=== PATIENT | female | born 1960 | race Caucasian/White ===

== ENCOUNTER 2020-03-27 10:28 | Outpatient (REF) | payer OTHER, SELFPAY ==
--- NOTE | 2020-03-27 10:40 | MM_ITS ---
EXAMINATION: BONE DENSITOMETRY CLINICAL INDICATION: Osteoporosis. COMPARISON: Baseline BD dated 06/30/2016. TECHNIQUE: Using a [employer] DXA System (software version: 13.1) manufactured by [employer], dual-energy x-ray absorptiometry was performed of the lumbar spine and left hip. The images are of good technical quality. Summary results are attached. FINDINGS: AP SPINE L1-L4: Current: BMD 1.842 g/cm2, Z-score 6.2, T-score 5.5, normal, 7.7% increase from baseline (<5% change is not significant). Baseline: BMD 1.710 g/cm2. LEFT FEMUR, NECK: Current: BMD 1.021 g/cm2, Z-score 0.8, T-score -0.1, normal. Baseline: BMD 1.068 g/cm2. LEFT FEMUR, TOTAL: Current: BMD 1.168 g/cm2, Z-score 1.8, T-score 1.3, normal, 4.2% increase from baseline (<5% change is not significant). Baseline: BMD 1.121 g/cm2. IDENTIFIED RISK FACTORS: Menopause, ERT/SERMS. HISTORY OF FRACTURE: None listed. MEDICATIONS: None listed. MM/XR DEXA axial skeleton IMPRESSION: 1. DIAGNOSIS: Normal bone density based on the lowest T-score value of -0.1 in the femoral neck applying World Health Organization criteria. 2. 10-YEAR FRACTURE RISK PREDICTION, FRAX: Major osteoporotic fracture (clinical spine, forearm, hip or shoulder) 6.1%. Hip fracture 0.2%. 3. Treatment Recommendations: NOF guidelines recommend consideration for treatment in postmenopausal women and men age 50 and older presenting with the following: -A hip or vertebral (clinical or morphometric) fracture. -T-score less than or equal to -2.5 at the femoral neck or spine after appropriate evaluation to exclude secondary causes. -Low bone mass at the hip or spine and a 10-year fracture probability by FRAX of greater than or equal to 3% for hip fracture or greater than or equal to 20% for major osteoporotic fracture based on the [place] adapted WHO algorithm. 4. Other Recommendations: All treatment decisions require clinical judgment and consideration of individual patient factors, including patient preferences, comorbidities, previous drug use, risk factors not captured in the FRAX model (e.g. frailty, falls, vitamin D deficiency, increased bone turnover, interval significant decline in bone density) and possible under or overestimation of fracture risk by FRAX. FUTURE SCAN RECOMMENDATION: People with diagnosed cases of osteoporosis or at high risk for fracture should have regular bone mineral density tests. For patients eligible for Medicare, routine testing is allowed once every 2 years. The testing frequency can be increased to one year for patients who have rapidly progressing disease, those who are receiving or discontinuing medical therapy to restore bone mass, or have additional risk factors.
--- NOTE | 2020-03-27 10:40 | MM_ITS ---
EXAMINATION: MM SCREENING DIGITAL BREAST TOMOSYNTHESIS, LEFT CLINICAL INFORMATION: Prior history right mastectomy for breast cancer 2009. Due for yearly. COMPARISON: Mammography: 09/12/2018, 08/11/2017, 07/11/2016, 06/05/2015, 04/21/2014, 03/28/2013 TECHNIQUE: Digital breast tomosynthesis is performed in both the craniocaudal and mediolateral oblique views along with computer-aided detection (CAD). Synthesized 2D images are generated from the tomosynthesis. Additional exaggerated left CC view is provided. FINDINGS: There are scattered areas of fibroglandular density (ACR BI-RADS breast composition Category b). There are no significant masses, abnormal calcifications, or other abnormalities. There is small intramammary node suggested on CC view outer quadrant similar to prior studies. Axillary nodes are stable. There are scattered benign calcifications. The skin contours are smooth. MM/MM tomosynthesis screening LT IMPRESSION: No significant changes from prior studies. ASSESSMENT: BI-RADS 2: Benign RECOMMENDATION: Routine annual mammography screening. This patient's information was entered into a reminder system with a target due date for their next mammogram.
== END 2020-03-27 10:29 | disposition home or self-care (01) ==
LOC: HO.MAMMO 10:28
PROVIDERS: PCP Internal Medicine; Visit Provider Internal Medicine Medical Oncology
DX: C50.411 Malignant neoplasm of upper-outer quadrant of right female breast (principal); Z13.820 Encounter for screening for osteoporosis; Z78.0 Asymptomatic menopausal state; Z79.810 Long term (current) use of selective estrogen receptor modulators (SERMs)
CPT/HCPCS: 77067; 77080

== ENCOUNTER → 2021-02-26 09:00 | Outpatient (BNVA) | payer OTHER, SELFPAY | PROVIDERS: PCP Internal Medicine; Visit Provider Surgery ==

== ENCOUNTER 2021-02-26 11:23 | Outpatient (REF) | payer OTHER, SELFPAY ==
[2021-02-26 14:03] LABS: Alanine Aminotransferase 17 U/L (0-31); Albumin Level 4.4 g/dL (3.5-5.0); Alkaline Phosphatase 118 U/L (39-117); Anion Gap 12 (12-20); Aspartate Amino Transferase 23 U/L (5-31); Bilirubin Total 0.5 mg/dL (0.0-1.0); Blood Urea Nitrogen 12 mg/dL (9-16); Calcium 9.5 mg/dL (8.4-10.2); Carbon Dioxide 30 mmol/L (22-29); Chloride 105 mmol/L (96-108); Estimated Glomerular Filt Rate > 60; Glucose Random 87 mg/dL (60-115); Potassium 4.3 mmol/L (3.3-5.1); Sodium 143 mmol/L (135-145); Total Protein 7.4 g/dL (6.5-8.0)
== END 2021-02-26 11:24 | disposition home or self-care (01) ==
LOC: HO.10HDL 11:23
PROVIDERS: Visit Provider Nurse Practitioner Family
DX: Z01.818 Encounter for other preprocedural examination (principal); Z76.0 Encounter for issue of repeat prescription; Z85.3 Personal history of malignant neoplasm of breast; Z88.6 Allergy status to analgesic agent; Z91.048 Other nonmedicinal substance allergy status
CPT/HCPCS: 36415; 80053

== ENCOUNTER 2021-04-26 07:23 | Outpatient (REF) | payer OTHER, SELFPAY ==
--- NOTE | ~2021-04-26 | MM_ITS ---
EXAMINATION: MM SCREENING DIGITAL BREAST TOMOSYNTHESIS, LEFT CLINICAL INFORMATION: Right mastectomy for breast cancer, 2009. Due for yearly exam. COMPARISON: Mammography: 03/27/2020, 09/12/2018, 08/11/2017 TECHNIQUE: Digital breast tomosynthesis is performed in both the craniocaudal and mediolateral oblique views along with computer-aided detection (CAD). Synthesized 2D images are generated from the tomosynthesis. FINDINGS: There are scattered areas of fibroglandular density (ACR BI-RADS breast composition Category b). Breast tissue composition borders on heterogeneously dense with shifting fibroglandular densities from year to year. There is no significant change in parenchymal pattern. No significant mass or architectural abnormality or developing density. No abnormal calcifications. MM/MM tomosynthesis screening LT IMPRESSION: No significant changes from prior studies. ASSESSMENT: BI-RADS 2: Benign RECOMMENDATION: Routine annual mammography screening. This patient's information was entered into a reminder system with a target due date for their next mammogram.
== END 2021-04-26 07:24 | disposition home or self-care (01) ==
LOC: HO.MAMMO 07:23
PROVIDERS: Visit Provider Internal Medicine Medical Oncology
DX: Z12.31 Encounter for screening mammogram for malignant neoplasm of breast (principal)
CPT/HCPCS: 77063; 77067

== ENCOUNTER 2022-05-02 08:33 | Outpatient (REF) | payer OTHER, SELFPAY ==
--- NOTE | ~2022-05-02 | MM_ITS ---
EXAMINATION: MM SCREENING DIGITAL BREAST TOMOSYNTHESIS, LEFT CLINICAL INFORMATION: Screening. Asymptomatic. The lifetime risk of breast cancer based on the Tyrer-Cuzick Model is 6%. COMPARISON: Mammography: 04/26/2021, 03/27/2020, 09/12/2018 TECHNIQUE: Digital breast tomosynthesis is performed in both the craniocaudal and mediolateral oblique views along with computer-aided detection (CAD). Synthesized 2D images are generated from the tomosynthesis. Additional left MLO view is provided. FINDINGS: There are scattered areas of fibroglandular density (ACR BI-RADS breast composition Category b). There are no significant masses, abnormal calcifications, or other abnormalities. Parenchymal pattern is similar to prior studies. There is no developing density or architectural abnormality. The axilla and skin contours are unremarkable. No significant changes. MM/MM tomosynthesis screening LT IMPRESSION: No mammographic evidence of malignancy. ASSESSMENT: BI-RADS 1: Negative RECOMMENDATION: Routine annual mammography screening. This patient's information was entered into a reminder system with a target due date for their next mammogram.
== END 2022-05-02 08:34 | disposition home or self-care (01) ==
LOC: HO.MAMMO 08:33
PROVIDERS: Visit Provider Internal Medicine Medical Oncology
DX: Z12.31 Encounter for screening mammogram for malignant neoplasm of breast (principal)
CPT/HCPCS: 77063; 77067

== ENCOUNTER → 2022-05-24 09:21 | Outpatient (BNVA) | payer OTHER, SELFPAY | PROVIDERS: PCP Internal Medicine; Visit Provider Surgery | DX: Z13.89 Encounter for screening for other disorder (principal) ==

== ENCOUNTER 2023-01-30 11:11 | Outpatient (AMB) | payer OTHER, SELFPAY ==
--- NOTE | 2023-01-30 11:16 | A.OFFVIS_ITS ---
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 H/o right modified radical mastectomy on 03/23, 4 cycles of dose dense AC followed by 4 cycles of Taxotere and chest wall radiation. Last time she was seen in my office 1 year ago for the treatment of neuropathic pain she was prescribed gabapentin and amitriptyline. She continues to take those medications she admits significant help from those medications. She denies side effects. She requests me to refill the meds. [facility] Medical History Invasive lobular carcinoma of breast, stage 3 Surgical History History of 2 sections History of appendectomy History of mastectomy History of right breast biopsy Social History Alcohol intake: current Alcohol intake frequency: holidays/special occasions only Patient Tobacco Use Status: Never used Tobacco Female Reproductive History Menstrual Age of Menarche: 13 Review of Systems Const All systems reviewed & are unremarkable except as noted in HPI and below ENT Denies Normal hearing present Neuro Denies Normal hearing present, Denies Abnormal speech present and Denies confusion Psych Denies confusion Physical Exam Const General: cooperative, healthy appearing and no acute distress; No confusion Nutritional Appearance: overweight Orientation/consciousness: patient oriented x3 and No confusion Limitations: no limitations HEENT Head: Yes normocephalic and Yes atraumatic Ears: hearing grossly normal bilaterally Eyes General: appearance normal, both eyes and all related structures Eyelids: Yes eyelids normal Pupils: Equal, round and reactive pupils present EOM: EOMs intact bilaterally Neck Neck: Yes normal visual inspection and Yes no JVD Resp Effort & Inspection: normal respiratory effort, able to speak in complete sentences and no audible wheezes Cardio Jugular venous distension: no JVD Neuro General: patient oriented x3 and No confusion Cranial nerves: Yes Equal, round and reactive pupils present and No Normal hearing present Speech: No Abnormal speech present Psych Appearance: grossly normal Mental Status: mental status grossly normal Speech and movement: Normal speech and movement present Affect: normal affect Attitude: cooperative Thought process: Normal thought process present Thought content: Normal thought content present Insight: Good insight present (Psych) Judgement: Good judgement present (Psych) Assessment & Plan Assessment & Plan (1) Neuralgia: Code(s): M79.2 - Neuralgia and neuritis, unspecified Plan Batsheva returns today for a refill on her amitriptyline and gabapentin. Currently she is on gabapentin 600 mg t.i.d. and amitriptyline 50 mg 2 pills a night q.h.s.. I will see her in in 1 we are or sooner if needed. Medications: Refilled amitriptyline Start with 1 tab and not effective after two weeks may increase to two tabs QHS 25 mg PO BEDTIME 60 tabs 11RF 30 days gabapentin 600 mg PO TID 90 tabs 11RF 30 days Coding Level of Care Code Est Pt Level 3 (31333) Diagnoses Neuralgia M79.2
[2023-01-30 11:25] VITALS: BP 128/88; PULSE 85; RESP 17; O2SAT 95
== END 2023-01-30 11:32 | disposition home or self-care (01) ==
PROVIDERS: PCP Internal Medicine; Visit Provider Anesthesiology
DX: M79.2 Neuralgia and neuritis, unspecified (principal)
CPT/HCPCS: 99213

== ENCOUNTER → 2023-01-30 11:11 | Outpatient (BNVA) | payer OTHER, SELFPAY | PROVIDERS: PCP Internal Medicine; Visit Provider Anesthesiology ==

== ENCOUNTER 2023-08-03 15:36 | Outpatient (REF) | payer OTHER, SELFPAY ==
--- NOTE | ~2023-08-03 | MM_ITS ---
EXAMINATION: MM SCREENING DIGITAL BREAST TOMOSYNTHESIS, LEFT CLINICAL INFORMATION: Screening. Asymptomatic. The patient is status post right mastectomy. COMPARISON: Mammography: This study is compared with prior exams dating back to 2019. TECHNIQUE: Digital breast tomosynthesis is performed in both the craniocaudal and mediolateral oblique views along with computer-aided detection (CAD). Synthesized 2D images are generated from the tomosynthesis. FINDINGS: There are scattered areas of fibroglandular density (ACR BI-RADS breast composition Category b). There are no significant masses, abnormal calcifications, or other abnormalities. MM/MM tomosynthesis screening LT IMPRESSION: No mammographic evidence of malignancy. ASSESSMENT: BI-RADS BI-RADS 1 - Negative RECOMMENDATION: Routine annual mammography screening. 1 year F/U This examination should not preclude the clinical evaluation of a suspicious palpable abnormality. This patient's information was entered into a reminder system with a target due date for their next mammogram.
== END 2023-08-03 15:37 | disposition home or self-care (01) ==
LOC: HO.MAMMO 15:36
PROVIDERS: PCP Internal Medicine Medical Oncology; Visit Provider Internal Medicine Medical Oncology
DX: Z12.31 Encounter for screening mammogram for malignant neoplasm of breast (principal)
CPT/HCPCS: 77063; 77067

== ENCOUNTER → 2023-08-03 16:00 | Outpatient (BNV) | payer OTHER, SELFPAY | PROVIDERS: PCP Internal Medicine Medical Oncology; Visit Provider Radiology Diagnostic Radiology | DX: Z12.31 Encounter for screening mammogram for malignant neoplasm of breast (principal) | CPT/HCPCS: 77063; 77067 ==

== ENCOUNTER 2023-11-06 08:01 | Outpatient (AMB) | payer OTHER, SELFPAY ==
[2023-11-06 08:02] VITALS: BP 122/80; PULSE 87; TEMP 36.8; O2SAT 97
--- NOTE | 2023-11-06 08:02 | AM.OFFWIN_ITS ---
Intake Vital Signs 11/06/23 08:02 Height 5 ft 4 in Weight 175 lb BMI 30.0 BP 122/80 Blood Pressure Location Rt brachial Position Sitting Pulse 87 Pulse Source Pulse Oximeter Temp 98.3 F Temp Source Oral Pulse Oximetry (%) 97 Intake Visit Reasons: EP Sharp pain LT arm/neck Intake Note: pt is here for sharp arm pain left side from neck down arm Patient Tobacco Use Status: Never used Tobacco Allergies adhesive Allergy (Unknown, Uncoded 11/06/23 08:03) rash percocet Allergy (Unknown, Uncoded 11/06/23 08:03) nausea/vomiting Do you need a note to return to daycare/school/sports/work: No HPI HPI Comments History of Present Illness Details 63 y/o female patient who presents to [facility] in clinic with c/o Neck pain radiating down to the left arm. Reports the pain located on the back of the neck - pain radiating from midline neck all the way down to left arm and fingers. Reports feeling tingling and numbness to the upper arm and hand. Pain started Monday, she went to throw a Trash Bag and believes she might have pulled a muscle. [facility] Medical History Invasive lobular carcinoma of breast, stage 3 Surgical History History of 2 sections History of appendectomy History of mastectomy History of right breast biopsy Social History Alcohol intake: current Alcohol intake frequency: holidays/special occasions only Patient Tobacco Use Status: Never used Tobacco Female Reproductive History Menstrual Age of Menarche: 13 Review of Systems Const All systems reviewed & are unremarkable except as noted in HPI and below Physical Exam Vital Signs: Last Vital Signs Temp 98.3 F 11/06/23 08:02 Pulse 87 11/06/23 08:02 BP 122/80 11/06/23 08:02 Pulse Ox 97 11/06/23 08:02 BMI result Body Mass Index 30.0 Const General: comfortable and no acute distress Nutritional Appearance: overweight Orientation/consciousness: patient oriented x3 Neck Neck: Yes normal visual inspection, Yes full ROM, Yes supple and Yes tender (Tenderness midline neck at Trapezius muscle) Lymphatic: no lymphadenopathy noted Skin General skin exam: no rashes or lesions noted Rashes: no rashes Neuro General: patient oriented x3, gait normal and moves all extremities Psych Speech and movement: Normal speech and movement present Assessment & Plan Assessment & Plan (1) Neck pain on left side: Code(s): M54.2 - Cervicalgia Plan: Acetaminophen for pain relief Ice/Hot Medications: New naproxen 500 mg PO BID 20 tabs 0RF M54.2 - Cervicalgia lidocaine 5% leave on most painful area for up to 12 hrs 1 patch topical DAILY 15 ea 0RF M54.2 - Cervicalgia lidocaine 5% leave on most painful area for up to 12 hrs 1 patch topical DAILY 15 ea 0RF M54.2 - Cervicalgia naproxen 500 mg PO BID 20 tabs 0RF M54.2 - Cervicalgia cyclobenzaprine 10 mg PO BEDTIME 14 tabs 0RF M54.2 - Cervicalgia cyclobenzaprine 10 mg PO BEDTIME 14 tabs 0RF M54.2 - Cervicalgia Coding Level of Care Code Est Pt Level 3 (80391) Diagnoses Neck pain on left side M54.2 Time Spent (min) 15
== END 2023-11-06 09:10 | disposition home or self-care (01) ==
PROVIDERS: PCP Internal Medicine Medical Oncology; Visit Provider Nurse Practitioner Family
DX: M54.2 Cervicalgia (principal)
CPT/HCPCS: 99213

== ENCOUNTER 2023-12-06 09:24 | Outpatient (AMB) | payer OTHER, SELFPAY ==
[2023-12-06 10:03] VITALS: BP 140/88; PULSE 95; TEMP 36.1; O2SAT 99; BMI 29.3
--- NOTE | 2023-12-06 10:03 | AM.OFFWIN_ITS ---
Intake Vital Signs 12/06/23 10:03 Height 5 ft 4 in Weight 171 lb BMI 29.3 BP 140/88 H Blood Pressure Location Lt brachial Position Sitting Pulse 95 Pulse Source Pulse Oximeter Temp 97.0 F Temp Source Temporal Artery Scan Pulse Oximetry (%) 99 Oxygen Delivery Method Room Air Intake Visit Reasons: EP Pinched nerve/not better Intake Note: Batsheva is a 63 year old female who presents to the office today for a pinched nerve in her left arm all the way up her shoulder. Pt states she was given pain m edications which helped a little but now states the pain is back. Patient Tobacco Use Status: Never used Tobacco Allergies adhesive Allergy (Unknown, Uncoded 12/06/23 10:04) rash percocet Allergy (Unknown, Uncoded 12/06/23 10:04) nausea/vomiting HPI HPI Comments History of Present Illness Details 63 y/o female patient who presents to [facility] in clinic with c/o left sided upper arm Nerve pain associated with tingling of fingers. She was seen by me back in October for similar problem. Reports good relief with Flexeril. She is currently being managed by pain clinic for Neuralgia right upper arm. She takes Gabapentin 600 TID and Amitriptiline 25 mg at Bedtime. She does report no much relief on the current medications. She has an up coming Appointment with Pain clinic in February. [facility] Medical History Invasive lobular carcinoma of breast, stage 3 Surgical History History of 2 sections History of appendectomy History of mastectomy History of right breast biopsy Social History Alcohol intake: current Alcohol intake frequency: holidays/special occasions only Patient Tobacco Use Status: Never used Tobacco Female Reproductive History Menstrual Age of Menarche: 13 Review of Systems Const All systems reviewed & are unremarkable except as noted in HPI and below Physical Exam Vital Signs: Last Vital Signs Temp 97.0 F 12/06/23 10:03 Pulse 95 12/06/23 10:03 BP 140/88 H 12/06/23 10:03 Pulse Ox 99 12/06/23 10:03 Oxygen Delivery Method Room Air 12/06/23 10:03 BMI result Body Mass Index 29.3 Const General: comfortable and no acute distress Orientation/consciousness: patient oriented x3 Neuro General: patient oriented x3, gait normal and moves all extremities Extrem Left upper extremity: normal capillary refill, no joint enlargement and shoulder/upper arm Details: inspection abnormal and abnormal ROM Details: pain with active ROM; no tenderness and no crepitus Psych Speech and movement: Normal speech and movement present Assessment & Plan Assessment & Plan (1) Neuralgia: Code(s): M79.2 - Neuralgia and neuritis, unspecified Plan: F/U with Pain clinic as scheduled Take 2 tabs of Amitriptiline at bedtime Ordered Flexeril 5 mg at Bedtime Continue on Gabapentin as prescribed Medications: New cyclobenzaprine 5 mg PO BEDTIME 7 tabs 0RF M79.2 - Neuralgia and neuritis, unspecified Refilled amitriptyline Start with 1 tab and not effective after two weeks may increase to two tabs QHS 25 mg PO BEDTIME 30 days 60 tabs 11RF Coding Level of Care Code Est Pt Level 3 (91930) Diagnoses Neuralgia M79.2 Time Spent (min) 15
== END 2023-12-06 11:14 | disposition home or self-care (01) ==
PROVIDERS: PCP Internal Medicine Medical Oncology; Visit Provider Nurse Practitioner Family
DX: M79.2 Neuralgia and neuritis, unspecified (principal)
CPT/HCPCS: 99213

== ENCOUNTER 2024-02-21 09:21 | Outpatient (AMB) | payer OTHER, SELFPAY ==
--- NOTE | 2024-02-21 09:24 | A.OFFVIS_ITS ---
Vital Signs 02/21/24 09:34 Height 5 ft 4 in Weight 166 lb 4 oz BMI 28.5 BP 150/78 H Blood Pressure Location Lt brachial Position Sitting Respiration 17 Pulse 82 Pulse Source Pulse Oximeter Pulse Oximetry (%) 98 Oxygen Delivery Method Room Air Intake Visit Reasons: medication review Intake Note: Patient comes in for medication review. Reports pain 6/10. Allergies adhesive Allergy (Unknown, Uncoded 12/06/23 10:04) rash percocet Allergy (Unknown, Uncoded 12/06/23 10:04) nausea/vomiting HPI Comments Details: Batsheva is back in my office after year of absence. She was prescribed by me last time amitriptyline and gabapentin. She reports no side effects on gabapentin. She denies dizziness drowsiness depression. She denies side effects of amitriptyline, she denies urinary retention she denies is dry mouth. He explained to the patient that I do not mind to increase the dose of amitriptyline to 50 mg q.h.s.. However I told her with further elevation of the dose risk of tardive dyskinesia another complications of the tricyclic antidep ressants could be more prominent. I again briefly mentioned her that we can relieve her pain with spinal cord stimulation instead of those medications. Patient understood and she denied international pain management. She reports today that her pain is 6/10. Her pain is constant and relentless. However she states that 6/10 is good for her. Prior: 62-year-old female patient, former patient of Dr. Braswell with a previous history of infiltrating lobular carcinoma of the right breast. H/o right modified radical mastectomy on 03/23, 4 cycles of dose dense AC followed by 4 cycles of Taxotere and chest wall radiation. Last time she was seen in my office 1 year ago for the treatment of neuropathic pain she was prescribed gabapentin and amitriptyline. She continues to take those medications she admits significant help from those medications. She denies side effects. She requests me to refill the meds. [facility] Medical History Invasive lobular carcinoma of breast, stage 3 Surgical History History of 2 sections History of appendectomy History of mastectomy History of right breast biopsy Social History Alcohol intake: current Alcohol intake frequency: holidays/special occasions only Patient Tobacco Use Status: Never used Tobacco Female Reproductive History Menstrual Age of Menarche: 13 Review of Systems Const All systems reviewed & are unremarkable except as noted in HPI and below ENT Denies Normal hearing present Neuro Denies Normal hearing present, Denies Abnormal speech present and Denies confusion Psych Denies confusion Physical Exam Vital Signs: Last Vital Signs Pulse 82 02/21/24 09:34 Resp 17 02/21/24 09:34 BP 150/78 H 02/21/24 09:34 Pulse Ox 98 02/21/24 09:34 Oxygen Delivery Method Room Air 02/21/24 09:34 BMI result Body Mass Index 28.5 Const General: cooperative, healthy appearing and no acute distress; No confusion Nutritional Appearance: overweight Orientation/consciousness: patient oriented x3 and No confusion Limitations: no limitations HEENT Head: Yes normocephalic and Yes atraumatic Ears: hearing grossly normal bilaterally Eyes General: appearance normal, both eyes and all related structures Eyelids: Yes eyelids normal Pupils: Equal, round and reactive pupils present EOM: EOMs intact bilaterally Neck Neck: Yes normal visual inspection and Yes no JVD Resp Effort & Inspection: normal respiratory effort, able to speak in complete sentences and no audible wheezes Cardio Jugular venous distension: no JVD Neuro General: patient oriented x3 and No confusion Cranial nerves: Yes Equal, round and reactive pupils present and No Normal hearing present Speech: No Abnormal speech present Extrem Other: Reports numbness tingling burning sensation in bilateral lower extremities. On physical exam there is no edema the capillary refill is normal. Psych Appearance: grossly normal Mental Status: mental status grossly normal Speech and movement: Normal speech and movement present Affect: normal affect Attitude: cooperative Thought process: Normal thought process present Thought content: Normal thought content present Insight: Good insight present (Psych) Judgement: Good judgement present (Psych) Assessment & Plan Assessment & Plan (1) Neuralgia: Code(s): M79.2 - Neuralgia and neuritis, unspecified Category: Medical Plan Batsheva returns today for a refill on her amitriptyline and gabapentin. Currently she is on gabapentin 600 mg t.i.d. and amitriptyline 50 mg q.h.s.. I will see her in in 1 year or sooner if needed. Neuromodulation was offered to the patient the patient refused. Medications: New amitriptyline 50 mg PO BEDTIME 30 days PRN 30 tabs 11RF insomnia, neuropathic pain Refilled gabapentin 600 mg PO TID 30 days 90 tabs 11RF Discontinued amitriptyline Start with 1 tab and not effective after two weeks may increase to two tabs QHS Discontinued Reason: Doctor's Order 25 mg PO BEDTIME 30 days 60 tabs 11RF Coding Level of Care Code Est Pt Level 3 (25422) Diagnoses Neuralgia M79.2
[2024-02-21 09:34] VITALS: BP 150/78; PULSE 82; RESP 17; O2SAT 98; BMI 28.5
== END 2024-02-21 09:46 | disposition home or self-care (01) ==
PROVIDERS: PCP Internal Medicine Medical Oncology; Visit Provider Anesthesiology
DX: M79.2 Neuralgia and neuritis, unspecified (principal)
CPT/HCPCS: 99213

== ENCOUNTER → 2024-02-21 09:21 | Outpatient (BNVA) | payer OTHER, SELFPAY | PROVIDERS: PCP Internal Medicine Medical Oncology; Visit Provider Anesthesiology ==

== ENCOUNTER 2024-10-03 08:09 | Outpatient (REF) | payer OTHER, SELFPAY ==
--- OUTSIDE RECORDS SUMMARY | 2024-10-03 08:13 | XMS_ITS | Patient Health Record ---
Author Organization Humberto Roca III, MD Address [address] [place] [address] [address] [place] [address] Care Team Providers Care Pathology Specialist Name Role Phone Oswald Murdock MD Primary Care Provider Humberto Franks [phone] Allergies Allergen (clinical drug ingredient) Drug/Non Drug Allergy documented on EMR Reaction Allergy Type Onset Date Status Seasonale Unknown Drug Allergy Active Reason For Referral No Information Medications Medication SIG (Take, Route, Fr equency, [...] Additional Findings: Tobacco Non-User Ex-cigaret te smoker Alcohol Screen Question Answer Notes Did you have a drink containing alcohol in the p ast year? No Points 0 Interpretation Negative Problems Problem Type SNOMED Code ICD Code Onset Dates Problem Status W/U Status Risk Notes Problem 0907212 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 She has a plan for prevention of relapse in times of stress. Problem 132354838 Overweight (E66.3) Active confirmed She has lost 9 more pounds. She is no longer obese. We discussed her weight loss strategy today. We reviewed her diet and nutrition today. Problem 364188781 Malignant neoplasm of upper-outer quadrant of right female breast (C50.411) Active confirmed There is no sign of a new primary are of returns today. Problem 072610644 Use of tamoxifen (Nolvadex) (Z79.810) Active confirmed She reports being up-to-date with SURGICAL ELASTIC KNITTER and has had no vaginal bleeding. Problem 838165991 History of appendectomy (Z90.49) Active confirmed Problem 497922766 Status post righ t breast reconstruction (Z98.89) Active confirmed There is no change in the appearance of breast and the cosmetic result is adequate. Vital Signs Heart Rate 86 /min 02/21/2024 Temperature 98.4 degrees Fahrenheit 02/21/2024 Blood pressure diastolic 81 mm Hg 02/21/2024 Height 65 in 02/21/2024 Blood pressure systolic 133 mm Hg 02/21/2024 Weight 166 lbs 02/21/2024 BMI 27.62 kg/m2 02/21/2024 Encounters Encounter Location Date Provider Diagnosis Humberto Roca III, MD [address] [place] [address] [place] [address] 02/21/2024 Humberto Roca Former smoker Z87.89 1 [...] - Z79.810) She reports being up-to-date with SURGICAL ELASTIC KNITTER and has had no vaginal bleeding. Plan Of Treatment Pending Test Test Name Order Date BONE DENSITY DEXA 06/05/2019 MAMMOGRAM DIGITAL SCREEN LEFT UNI 2022 MAMMOGRAM DIGITAL SCREEN LEFT UNI 2019 Next Appt Details Provider Name:Humberto Roca, 02/20/2025 10:30:00 AM, [address] [place] [address], [place] [address], [place], [address], Insurance Providers Payer Name Payer Address Payer Phone Subscriber Number Group Number Insured Name Patient Relationship to Insured Coverage Start Date Coverage End Date [employer] [address] [address] [place] [address] [id number] Batsheva Greenberg Self - patient is the insured Medical (General) History Medical History History ICD Code [id number] breast cancer last mammogram 05/2015 @ [facility] quintero stop 04/2019 Surgical History Surgery Date(Month/Year) full dental extractions 2019 left breast reduction right breast reconstruction appendectomy 2 caesarean sections
--- OUTSIDE RECORDS SUMMARY | 2024-10-03 08:13 | XMS_ITS ---
Author Organization Humberto Roca III, MD Address [address] [place] [address] [place] [address] Care Team Providers Care Signal Worker Name Role Phone Oswald Murdock MD Primary Care Provider Humberto Franks [phone] REASON FOR VISIT Follow up Social History Sex Assigned At : Social History Observation Description Sex Assigned At Female Encounters Encounter Location Date Provider Diagnosis Humberto Roca III, MD [address] [place] [address] [place] [address] 02/09/2024 Humberto Roca Plan Of Treatment Next Appt Details Provider Name:Humberto Roca, 02/20/2025 10:30:00 AM, [address] [place] [address] [place], [address], Progress Notes * Chaya YANGeDOB:1960 (64 yo F)Acc No.[id number]:02/09/2024 Progress Notes Patient:?Batsheva YANG Provider:?Humberto Roca MD :1960???Age:63 Y???Sex:Female D ate:02/09/2024 Address:[address] [place], [place] [address] [id number] Pcp:Oswald Murdock MD Subjective: * Chief Complaints: * ???1. Follow up. * Medical History:? Objective: * Vitals:? Assessment: Plan: * Treatment: * Images: * The named appointment provid er may or may not be the originator of this progress note, and it is not deemed complete until electronically signed by the appointment provider. Sign off status: Pending * Provider:?Humberto Roca MD Date:?01/14 Generated for Radha mcintosh/Juanis/Elvis on:?10/03/2024 08:13 AM EDT
--- OUTSIDE RECORDS SUMMARY | 2024-10-03 08:13 | XMS_ITS ---
Author Organization Humberto Roca III, MD Address [address] [place] [address] [place] [address] Care Team Providers Care Elastic Attacher Chainstitch Name Role Phone Oswald Murdock MD Primary Care Provider Humberto Franks [phone] Allergies Allergen (clinical drug ingredient) Drug/Non Drug [...] Date Provider Diagnosis Humberto Roca III, MD [address] [place] [address] [place] [address] 02/21/2024 Humberto Roca Former smoker Z87.89 1 [...] - Z79.810) She reports being up-to-date with CLINICAL INSTRUCTOR and has had no vaginal bleeding. Plan Of Treatment Medication Medication Name Sig Start Date Stop Date Notes Gabapentin 300 MG 1 capsule Orally Once a day Next Appt Details Follow Up: 1 Year, Reason: o v no tests Provider Name:Humberto Roca, 02/20/2025 10:30:00 AM, [address] [place] [address] [address] [place] [address], [phone], Progress Notes * CELIAChayaSheriOB:1960 (63 yo F)Acc No.[id number]:02/21/2024 Progress Notes Patient:?Batsheva YANG Provider:?Humberto Roca MD :1960???Age:63 Y???Sex:Female D ate:02/21/2024 Address:[address] [place], [place] [phone] Pcp:Oswald Murdock MD Subjective: * Chief Complaints: * ???History of right breast c ancerDrug-induced neuropathy * HPI: ???COVID-19 Screening:?Questions?Have you experienced fever, chills, cough, sore throat, shortness of breath, difficulty breathing, muscle aches, loss of taste or smell??No ?Have you been exposed to the virus within the last 10 days??No ?Have you travelled internationally in the last 10 days??No ?Have you been exposed to COVID-19 in the past??No ?on amitriptyline 25 slee;, right reconstruction.? She returns for a 6 month check after a history of early breast cancer on the right treated with mastectomy followed by reconstruction.? She then underwent adjuvant hormonal therapy with tamoxifen and adjuvant chemotherapy.? This left her with mild peripheral neuropathy primarily in the lower extremities and neuropathic pain.? She is now taking 25 mg of amitriptyline daily for the pain.? She has remained free of disease to date. She has no new complaints.? She is up-to-date with mammography.? She conducting breast self-examination regularly.? Her examination today showed no sign of recurrence or of a new primary. * ROS:?General/Constitutional:?pain?Mild to moderate neuropathic pain lower extremities, ootherwiseonly normal aches and pains.?Chills?denies.?Fatigue?admits.?Fever?denies.?ENT:?Decreased hearing?denies.?Respiratory:?Cough?denies.?Cardiovascular:?Chest pain with exertion?denies.?Dyspnea on exertion?denies.?Shortness of breath?denies.?Gastrointestinal:?Constipation?occasional.?Decreased appetite?denies.?Diarrhea?denies.?Heartburn?denies.?Nausea?denies.?Rectal bleeding?denies.?Vomiting?denies.?Hematology:?bruising?denies.?petechiae?denies.?Swollen glands?none have been noted.?Genitourinary:?Frequent urination?denies.?Musculoskeletal:?Muscle aches?denies.?Painful joints?denies.?Sciatica?denies.?Weakness?denies.?Skin:?Itching?denies.?Rash?denies.?Skin lesion(s)?denies.?Neurologic:?Difficulty speaking?denies.?Dizziness?denies.?Headache?denies.?Low back pain?denies.?Psychiatric:?Depressed mood?denies.? * Medical History:? * Surgical History:?2 caesarea n sections appendectomy right breast reconstruction left breast reduction full dental extractions 2018 * Hospitalization/Major Diagno stic Procedure:?Denies Past Hospitalization * Family History:?Father: dece ased, unknown.?Mother: 83 yrs, hyperlipidemia, chronic obstructive pulmonary disease, hypertension, diagnosed with HTN, Hyperlipidemia.?3 brother(s) , 3 sister(s) - healthy. 1 son(s) , 1 daughter(s) - healthy. .? There is no history of breast cancer history. * Social History:?Tobacco Use:?Tobacco Use/Smoking?Patient is a?former smoker ?How long has it been since you last smoked??> 10 years ?Additional Findings: Tobacco Non-User?Ex-cigarette smoker ???She works at [employer]. She has been for 10 years to George. They have 2 children. She was born in [place], [place]. * Medications:?TakingGabapenti n 300 MG Capsule 1 capsule Orally Once a day Medication List reviewed and reconciled with the patientTaking Gabapentin 300 MG Capsule 1 capsule Orally Once a day Medication List reviewed and reconciled with the patient * Allergies:?Seasonaleno[Aller gies Verified] Objective: * Vitals:?Ht: 65, Wt: 166, BMI :27.62, BP: 133/81, HR: 86, Temp: 98.4, Wt-k.3. * Examination: ???General Examination: ?GENERAL APPEARANCE:?pleasant, well nourished, well developed, in no acute distress, calm and relaxed, overweight, woman.?HEAD:?atraumatic, normocephalic.?EYES:?eomi, perrla, anicteric, conjugate.?EARS:?normal.?NOSE:?septum intact.?ORAL CAVITY:?normal, unremarkable.?NECK/THYROID:?no jugular venous distention, no carotid bruit, thyroid normal.?LYMPH NODES:?no enlarged lymph nodes,spleen normal.?SKIN:?no suspicious lesions, anicteric.?HEART:?no clicks, gallops, murmurs, or rubs, regular rhythm, S1, S2 normal, no s3, or vascular bruits.?LUNGS:?clear to auscultation .?BREASTS:?Left breast unremarkable, reconstructed right breast shows no signs of relapse..?ABDOMEN:?bowel sounds normal, no ascites, no organomegaly, no mass, overweight.?RECTAL EXAM:?not examined.?MUSCULOSKELETAL:?extremities unremarkable, no clubbing, cyanosis or edema.?PERIPHERAL PULSES:?normal.?NEUROLOGIC:?alert and oriented, cranial nerves 2-12 grossly intact, deep tendon reflexes 2+ symmetrical, motor strength normal upper and lower extremities, sensory exam intact.?PSYCH:?alert, oriented.? Assessment: * Assessment: 1.?Malignant neoplasm of upp er-outer quadrant of right female breast - C50.411 (Primary)???Notes :There is no sign of a new primary are of returns today.???2.?Former smoker - Z87.891???Notes :She is highly motivated not to smoke. She has a plan for prevention of relapse in times of stress.???3.?Overweight - E66.3???Notes :She has lost 9 more pounds. She is no longer obese. We discussed her weight loss strategy today. We reviewed her diet and nutrition today.???4.?Status post right breast reconstruction - Z98.89???Notes :There is no change in the appearance of breast and the cosmetic result is adequate.???5.?Use of tamoxifen (Nolvadex) - Z79.810???Notes :She reports being up-to-date with CLINICAL INSTRUCTOR and has had no vaginal bleeding.??? Plan: * Treatment: * Procedure Codes:? * Preventive Medicine:? ??Counseling:?Care goal follow-up plan:?Counseling for abnormal BMI given?Yes ?Above Normal BMI Follow-up?Dietary management education, guidance, and counseling ?Smoking/Tobacco Use?Patient counseled on the dangers of tobacco use and urged to quit.?02/21/2024 * Follow Up:?1 Year (Reason: o v no tests) * Images: * Sign off status: Completed true * Provider:?Humberto Roca MD Date:?01/2024 Generated for Quinni ng/Juanis/eTransmitting on:?10/03/2024 08:12 AM EDT History and Physical Notes * HPI (History of Present Illness) Category Sub-Category Detail Notes COVID-19 Screening Questions Have you had any new onset fever, chills, cough, congestion, sore throat, shortness of breath, muscle aches?: No Have you been exposed to the virus withi n the last 10 days?: No Have you travelled internationally in last 10 days?: No Have you been [...]
== END 2024-10-03 08:10 | disposition home or self-care (01) ==
LOC: HO.MAMMO 08:09
PROVIDERS: PCP Internal Medicine Medical Oncology; Visit Provider Internal Medicine Medical Oncology
DX: Z12.31 Encounter for screening mammogram for malignant neoplasm of breast (principal)
CPT/HCPCS: 77063; 77067

== ENCOUNTER → 2024-10-03 08:30 | Outpatient (BNV) | payer OTHER, SELFPAY | PROVIDERS: PCP Internal Medicine Medical Oncology; Visit Provider Internal Medicine | DX: Z12.31 Encounter for screening mammogram for malignant neoplasm of breast (principal) | CPT/HCPCS: 77063; 77067 ==

== ENCOUNTER 2024-12-02 09:38 | Outpatient (REF) | payer OTHER, SELFPAY ==
--- OUTSIDE RECORDS SUMMARY | 2024-02-21 06:00 | XMS_ITS ---
Author Organization Humberto Roca III, MD Address [address] [place] [address] [place] [address] Care Team Providers Care Senior Ux Developer Name Role Phone Oswald Murdock MD Primary Care Provider Humberto Franks [phone] Allergies Allergen (clinical drug ingredient) Drug/Non Drug [...] Date Provider Diagnosis Humberto Roca III, MD [address] [place] [address] [place] [address] 02/21/2024 Humberto Roca Former smoker Z87.89 1 [...] - Z79.810) She reports being up-to-date with TERRAZZO LABORER and has had no vaginal bleeding. Plan Of Treatment Medication Medication Name Sig Start Date Stop Date Notes Gabapentin 300 MG 1 capsule Orally Once a day Next Appt Details Follow Up: 1 Year, Reason: o v no tests Provider Name:Humberto Roca, 02/20/2025 10:30:00 AM, [address] [place] [address] [address] [place] [address], [phone], Progress Notes * Chaya YANGSheriOB:1960 (63 yo F)Acc No.[id number]:02/21/2024 Progress Notes Patient: Batsheva TERRY Provider: Maria T Roca MD :1960 A ge:63 Y S ex:Female Date:02/21/2024 Address:[address] [place] [phone] Pcp:Oswald Murdock MD Subjective: * Chief Complaints: [...] E x-cigarette smoker S he works at [employer]. She has been for 10 years to George. They have 2 children. She was born in [place], [place]. * Medications: T akingGabapentin 300 MG [...] N otes :She reports being up-to-date with TERRAZZO LABORER and has had no vaginal bleeding. Plan: [...] 1 Generated for Radha mcintosh/Juanis/Keyshaitting on: 0 12/02/2024 10:12 AM EDT History and Physical Notes * HPI (History of Present Illness) Category Sub-Category Detail Notes COVID-19 Screening Questions Have you had any new onset fever, chills, cough, congestion, sore throat, shortness of breath, muscle aches?: No Have you been exposed to the virus with n the last 10 days?: No Have you travelled internationally in [facility] last 10 days?: No Have you [...]
--- NOTE | ~2024-12-02 | MM_ITS ---
EXAMINATION: MM DIAGNOSTIC DIGITAL BREAST TOMOSYNTHESIS, LEFT Limited left breast ultrasound. CLINICAL INFORMATION: Call back from screening for developing focal asymmetry in the upper outer left breast with questioned associated distortion. COMPARISON: Mammography: [facility] on PACS. TECHNIQUE: Digital breast tomosynthesis is performed in both the craniocaudal and mediolateral oblique views along with computer-aided detection (CAD). Synthesized 2D images are generated from the tomosynthesis. FINDINGS: The breasts are heterogeneously dense, which may obscure small masses (ACR BI-RADS breast composition Category c). Focal asymmetry in the upper outer breast persists on additional imaging projections. No suspicious calcifications or other abnormal findings. Targeted color Doppler ultrasound scanning in the upper outer quadrant of the left breast demonstrates a hypoechoic irregular solid mass at 2:00 4 cm from the nipple measuring 9 x 11 x 7 mm and a hypoechoic irregular solid mass at 2:00 4 cm from the nipple measuring 7 x 6 x 10 mm. MM/MM tomosynthesis added views L IMPRESSION: 2 irregular hypoechoic solid masses at 2:00 4 cm from the nipple. Recommend histology with ultrasound-guided core needle biopsy at this time for confirmation. The findings and recommendations were discussed with the patient the procedure will be scheduled. ASSESSMENT: BI-RADS BI-RADS 4 - Suspicious finding RECOMMENDATION: Biopsy recommended Results were provided to the patient at time of visit by the technologist. This patient's information was entered into a reminder system with a target due date for their next mammogram. Electronically signed by: Fidelina Brandon DO 12/02/2024 10:44 AM EDT
--- OUTSIDE RECORDS SUMMARY | 2024-12-02 10:12 | XMS_ITS | Data Portability ---
Author Organization [facility] Pain Managem ent, PAIN OFFICE Address [address],[facility] [address] [place] [address] Care Team Providers Care Drycleaner Name Role Phone [facility] (MEDICAL RECORDS) Primar y Care Provider CHRISTY BRASWELL Referring Provider [phone] Assessment Encounter Date Assessment Date Assessment LastModified by Organization Details LastModified Time 06/09/2014 06/09/2014 Batsheva Crawford a 54 year old woman with complaints of pain in the region of her right mastectomy scar. She has history fo breast cancer diagnosed by a mammogram 2008. She is S/P mastectomy followed by tramflap reconstruction. She had chemotherapy followed by chest wall irradiation.On exam , she has allodynia, hyperalgesia and dysthesia in thelateral aspect of her mastectomy scar in the right chest wall. She has features of nerve entrapment .She reportsgood benefit with thescar infiltrationfor 8 weeks. She is here forarepeat scar infiltration in her right mastectomy scar under ultrasound guidance. The risks and benefits of the procedure were discussed in detail. She wishes to proceed. She is taking Topamax 100mg bid and is doing well with no side effects. I have advised her to continue on present dose. [email or web address] Not available 06/09/2014 10:07:23 01/30/2015 01/30/2015 Batsheva Crawford a 54 year old woman with complaints of pain in the region of her right mastectomy scar. She has historyof breast cancer diagnosed by a mammogram 2008. She is S/P mastectomy followed by tramflap reconstruction. She had chemotherapy followed by chest wall irradiation.On exam , she has allodynia, hyperalgesia and dysthesia in thelateral aspect of her mastectomy scar in the right chest wall. She has features of nerve entrapment . She is taking Topamax 100mg bid and is doing well with no side effects. I have advised her to continue on present dose. She will follow up in six months. [email or web address] Not available 02/02/2015 10:31:16 08/13/2015 08/13/2015 Batsheva Crawford a 55 year old woman with complaints of pain in the region of her right mastectomy scar. She has historyof breast cancer diagnosed by a mammogram 2008. She is S/P mastectomy followed by tramflap reconstruction. She had chemotherapy followed by chest wall irradiation.On exam , she has allodynia, hyperalgesia and dysthesia in thelateral aspect of her mastectomy scar in the right chest wall. She has features of nerve entrapment .She reportsgood benefit with thelast scar infiltrationin 05/2014 with return of pain two weeks ago. She is here forarepeat scar infiltration in her right mastectomy scar under ultrasound guidance. The risks and benefits of the procedure were discussed in detail. She wishes to proceed. She is taking Topamax 100mg bid and is doing well with no side effects. I have advised her to continue on present dose. She will follow up in two weeks for repeat injection. I have given her a prescription for EMLA to be applied preprocedure. [email or web address] Not available 08/24/2015 08:37:33 09/07/2015 09/07/2015 Batsheva Crawford a 55 year old woman with complaints of pain in the region of her right mastectomy scar. She has history fo breast cancer diagnosed by a mammogram 2008. She is S/P mastectomy followed by tramflap reconstruction. She had chemotherapy followed by chest wall irradiation.On exam , she has allodynia, hyperalgesia and dysthesia in thelateral aspect of her mastectomy scar in the right chest wall. She has features of nerve entrapment .She reports nopain benefit with thescar infiltration. She is here forarepeat intercostal nerve block under ultrasound guidance. The risks and benefits of the procedure were discussed in detail. She wishes to proceed. She will follow up in two weeks [email or web address] Not available 09/07/2015 11:34:33 09/23/2015 09/23/2015 Batsheva Crawford a 55 year old woman with complaints of pain in the region of her right mastectomy scar. She has history fo breast cancer diagnosed by a mammogram 2008. She is S/P mastectomy followed by tramflap reconstruction. She had chemotherapy followed by chest wall irradiation.On exam , she has allodynia, hyperalgesia and dysthesia in thelateral aspect of her mastectomy scar in the right chest wall. She has features of nerve entrapment .She reportssomepain benefit with thelast intercostal nerve block. She is here forarepeat intercostal nerve block under ultrasound guidance. The risks and benefits of the procedure were discussed in detail. She wishes to proceed. She will follow up as needed. [email or web address] Not available 09/24/2015 11:52:36 Plan of Treatment Reminders Order Date Submit Date Provider Last Modified By Organization Details Last Modified Time Details Appointments None recorded . Lab None recorded . Referral None recorded . Procedures None recorded . Surgeries None recorded . Imaging None recorded . Medication Orders lidocain e 5 % topical cream 2015 016 [facility] [address] [place], [address], 6 11:52:36 Topamax 100 mg tablet 2014 015 INTERFACE [facility] [address] [place], [address], 5 10:07:38 Patient TargetsNo targets recorded. Patient Instructions Encounter Date Encounter Id Patient Instructions Last Modified By Organization Details Last Modified Time 06/09/2014 [id number] She was advised against bed rest lasting longer than four days and to continue activities as tolerated. [email or web address] Not available 06/09/2014 10:04:10 01/30/2015 [id number] She was advised against bed rest lasting longer than four days and to continue activities as tolerated. [email or web address] Not available 01/30/2015 09:47:30 08/13/2015 [id number] She was advised against bed rest lasting longer than four days and to continue activities as tolerated. [email or web address] Not available 08/19/2015 14:32:22 09/07/2015 [id number] She was advised against bed rest lasting longer than four days and to continue activities as tolerated. [email or web address] Not available 09/07/2015 11:31:27 09/23/2015 [id number] She was advised against bed rest lasting longer than four days and to continue activities as tolerated. [email or web address] Not available 09/24/2015 11:49:16 Reason for Referral None Reported. 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 Procedures Surgical History Date Name Laterality Status Provider Name and Address Organization Details Recorded Time 09/23/19 16 Intercostal Nerve Blocks completed Radha Hewitt MD [address] , [address], [place], [address], [place] [facility] 09/24/2015 11:52:36 09/07/19 16 Intercostal Nerve Blocks completed Radha Hewitt MD [address] , [address], [place], [address], [place] [facility] 09/07/2015 11:52:55 08/13/19 16 Trigger Point Injections under ultrasound guidance completed Radha Hewitt MD [address] , [address], [place], [address], [place] [facility] 08/19/2015 15:23:26 06/09/19 15 Trigger Point Injections under ultrasound guidance completed Radha Hewitt MD [address] , [address], [place], [address], [place] [facility] 06/11/2014 15:41:55 03/05/20 14 Intercostal Nerve Blocks completed Radha Hewitt MD [address] , [address], [place], [address], [place] [facility] 03/05/2014 11:11:22 02/11/20 14 Trigger Point Injections under ultrasound guidance completed Radha Hewitt MD [address] [facility] , [address], [place], [address], [place] [facility] 02/11/2014 10:28:07 10/17/19 14 Intercostal Nerve Blocks completed Radha Hewitt MD [address] [facility] , [address], [place], [address], [place] [facility] 10/23/2013 15:16:10 09/26/19 14 Trigger Point Injections under ultrasound guidance completed Radha Hewitt MD [address] , [address], [place], [address], [place] [facility] 09/26/2013 09:31:44 09/19/19 14 Trigger Point Injections under ultrasound guidance completed Radha Hewitt MD [address] , [address], [place], [address], [place] [facility] 09/18/2013 14:57:13 09/05/19 14 Trigger Point Injections under ultrasound guidance completed Radha Hewitt MD [address] , [address], [place], [address], [place] [facility] 09/04/2013 14:31:11 Appendectomy completed Fany Marley [place] [facility] 08/27/2013 10:51:31 Caesarean Section completed Fany Mar[place] [facility] 08/27/2013 10:51:31 Mastectomy completed Fanyharrison Marley [place] [facility] 08/27/2013 10:51:31 Imaging Results None recorded. Procedure Notes None recorded. Medical Equipment None Reported. Allergies No known drug allergies Medications Name Sig Start Date Stop Date Status Note LastModified by Organization Details LastModified Time lidocaine 5 % topical cream Apply 4 g 3 times a day by topical route for 30 days. 2015 active Not Available Not Available Not Avai lable penicillin V potassium 500 mg tablet active Not Available Not Available Not Available topiramate 25 mg tablet Take 3 tablets twice a day by oral route for 30 days. active Not Available Not Available No t Available lidocaine-pr ilocaine 2.5 %-2.5 % topical cream Apply topically to right anterior chest wall once one hour prior to procedure. active Not Available Not Available N ot Available prednisolone acetate 1 % eye drops,suspen jeri active Not Available Not Available Not Available lidocaine 5 % topical patch APPLY 1 PATCH BY TRANSDERMAL ROUTE DAILY (MAY WEAR UP TO 12 HOURS) active Not Available Not Available No t Available gabapentin 300 mg capsule Take 1 capsule 3 times a day by oral route for 30 days. active Not Available Not Available No t Available Advil 200 mg tablet Take 2 tablets every 6 hours by oral route. active Not Available Not Available Not Available ergocalcifer ol (vitamin D2) 1,250 mcg (50,000 unit) capsule active Not Available Not Available Not Available topiramate 100 mg tablet TAKE ONE TABLET BY MOUTH TWICE A DAY active Not Available Not Available No t Available tamoxifen 20 mg tablet Take 1 tablet every day by oral route. active Not Available Not Available No t Available Vigamox 0.5 % eye drops active Not Available Not Available Not Available Lyrica 75 mg capsule Take 1 capsule twice a day by oral route for 30 days. active Not Available Not Available No t Available Lyrica 150 mg capsule active Not Available Not Available N ot Available Nevanac 0.1 % eye drops,suspen jeri active Not Available Not Available Not Available Gavilyte-C 240 gram-22.72 gram-6.72 gram-5.84 gram oral solution active Not Available Not Available Not Available Vitals Date Recorded Oxygen saturation Oxygen saturation in Arterial blood by Pulse oximetry Heart rate Systolic And Diastolic Provider Name and Address Organization Details Last Updated DateTime 06/09/2014 98 % 98 % 76 /min 139/85 mm[Hg] [facility] 5 09:26:37 Date Recorded Oxygen saturation Oxygen saturation in Arterial blood by Pulse oximetry Heart rate Systolic And Diastolic Provider Name and Address Organization Details Last Updated DateTime 08/13/2015 100 % 100 % 66 /min 156/93 mm[Hg] [facility] 6 13:46:16 Date Recorded Heart rate Oxygen saturation Oxygen saturation in Arterial blood by Pulse oximetry Systolic And Diastolic Provider Name and Address Organization Details Last Updated DateTime 09/07/2015 66 /min 100 % 100 % 166/79 mm[Hg] [facility] 6 09:19:13 Date Recorded Oxygen saturation Oxygen saturation in Arterial blood by Pulse oximetry Heart rate Systolic And Diastolic Provider Name and Address Organization Details Last Updated DateTime 09/23/2015 99 % 99 % 64 /min 137/90 mm[Hg] Fany [facility] [place] [facility] 6 13:09:29 Date Recorded Oxygen saturation Oxygen saturation in Arterial blood by Pulse oximetry Heart rate Systolic And Diastolic Provider Name and Address Organization Details Last Updated DateTime 01/30/2015 99 % 99 % 60 /min 122/82 mm[Hg] Fany Mar[facility] [place] [facility] 5 08:29:25 Social History Question Answer Notes LastModified by Mashups Details LastModified Time Tobacco Smoking Status Former Smoker [facility]uit x 10 years [facility] 02/28/2020 03:16:12 Which Illicit Or Recreational Drugs Have You Used? No [id number] Information not available 02/28/2020 Education 12 Information no t available 08/27/2013 Live Alone Or With Others? With Others And Daughter Information not available 08/27/2013 Marital Status Informatio n not available 08/27/2013 How Many Years Have You Smoked Tobacco? 15 [id number] Information not available 02/28/2020 Sex: Unknown Functional Status Question Answer Note LastModified by Mashups Details LastModified Time What is your level of alcohol consumption? 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 Family History Nothing Reported. Medical History Condition Response Cancer Y Gynecological HistoryNo gynecological history recorded. Obstetrics History GPAL:G 0 P 0 0 0 0 Past Encounters Encounter ID Performer Location Encounter Start Date Encounter Closed Date Diagnosis/Indication Diagnosis SNOMED-CT Code Diagnosis ICD10 Code Diagnosis Note [id number] Radha Hewitt MD PAIN OFFICE [address],[facility] [address] [place] [address] 08/27/2013 10:03:54 09/01/2013 16:48:19 Malignant tumor of breast 350386118 Peripheral nerve entrapment syndrome 56672195 [id number] Radha Hewitt MD [facility] PA[facility] [address] [place] [address] 09/04/2013 13:10:48 09/04/2013 14:32:59 Peripheral nerve entrapment syndrome 49668149 Malignant tumor of breast 884570316 [id number] Radha Hewitt MD [facility] PA[facility] [address] [place] [address] 09/18/2013 08:49:52 09/18/2013 13:41:52 Malignant tumor of breast 072483132 Peripheral nerve entrapment syndrome 55522181 [id number] Radha Hewitt MD [facility] PA[facility] OFFICE [address] [place] [address] 09/25/2013 08:23:09 09/26/2013 09:32:29 Peripheral nerve entrapment syndrome 43924096 Malignant tumor of breast 336231330 [id number] Radha Hewitt MD [facility] PA[facility] OFFICE [address] [place] [address] 10/16/2013 08:15:19 10/23/2013 16:00:37 Peripheral nerve entrapment syndrome 88997255 Malignant tumor of breast 662803035 [id number] Radha Hewitt MD [facility] PA[facility] OFFICE [address] [place] [address] 02/10/2014 08:35:26 02/11/2014 09:10:28 Malignant tumor of breast 034359791 Peripheral nerve entrapment syndrome 34415404 [id number] Radha Hewitt MD [facility] PA[facility] [address] [place] [address] 03/05/2014 08:14:59 03/05/2014 11:12:29 Peripheral nerve entrapment syndrome 38756081 Malignant tumor of breast 942864363 [id number] Radha Hewitt MD [facility] PA[facility] OFFICE [address] [place] [address] 06/09/2014 09:18:56 06/09/2014 10:11:49 Peripheral nerve entrapment syndrome 94648562 Malignant tumor of breast 872785435 [id number] Radha Hewitt MD [facility] PA[facility] OFFICE [address] [place] [place] [address] 01/30/2015 08:22:35 01/30/2015 09:49:02 Peripheral nerve entrapment syndrome 65227208 Malignant tumor of breast 740261257 [id number] Radha Hewitt MD PAIN OFFICE [address] [place] [address] 08/13/2015 13:08:34 08/19/2015 15:24:02 Peripheral nerve entrapment syndrome 94922378 G58.8 Malignant tumor of breast 519915116 C50.911 [id number] Radha Hewitt MD PAIN OFFICE [address] [place] [address] 09/07/2015 09:11:02 09/07/2015 14:27:06 Peripheral nerve entrapment syndrome 19505271 G58.8 Malignant tumor of breast 739229025 C50.911 Injury cau sed by ionizing radiation 09972333 W88.8XXS [id number] Radha Hewitt MD PAIN OFFICE [address] [place] [address] 09/23/2015 12:42:50 09/24/2015 11:53:27 Peripheral nerve entrapment syndrome 03487696 G58.8 Injury cau sed by ionizing radiation 81224764 W88.8XXS Malignant tumor of breast 978102836 C50.911 Health Concerns Section Related Observation LastModified by Organization Detai ls LastModified Time None Recorded Concern Status LastModified by Organization Details LastModified Time None Recorded Advance Directives Directive None Recorded Payers Insurance Date Sequence Insurance Name Policy Number Policy Bell Covered Member ID Bell Member ID Guarantor Name 09/20/2015 1 OLAF [id number] Batsheva Greenberg [id number] Batsheva Greenberg Notes Date Note Type Note Provider Name and Address Organization Details Recorded Time 06/09/2014 text/html She is here for a repeat scar infiltration of the right mastectomy scar under ultrasound guidance. She states she had good benefit for 8 weeks after the last scar infiltration. She is on Topamax and is taking 100mg bid . She is doing well with no side effects. She is due to have blood work done in September 2014 with her oncologist. She had a mmammogram done in April 2014. Radha Hewitt MD [address] , [address], [place], [address], [facility] - [facility] 06/11/2014 15:42:08 01/30/2015 text/html She is here for a follow up. She is on Topamax 100mg BID and is doing well. She has lost 52 pounds and has done so with better eating habits and exercise. She feels she is doing well overall. She states she has seen Dr. Braswell for a follow up and her mammogram was negative. She had cataracts and is S/P eye surgery. She states she had her eyes checked and there is no increase in intraocular pressure. She has a physical scheduled with her PCP and is due for yearly blood work and will forward results to me. Radha Hewitt MD [address] , [address], [place], [address], [facility] - Pain Management 02/02/2015 10:33:09 08/13/2015 text/html She is here for a repeat scar infiltration of the right mastectomy scar under ultrasound guidance. She states she had good benefit after the last scar infiltration in 05/2014. She is on Topamax and is taking 100mg bid . She is doing well with no side effects. She had recent blood work done with her oncologist. She had a mammogram done and states everything is within normal limits. She states she is a bit frustrated with return of pain. She states she has been doing well with exercises and diet and has lost weight. Radha Hewitt MD [address] , [address], [place], [address], [facility] - [facility] Management 08/24/2015 08:37:48 09/07/2015 text/html She is here for a follow up after a repeat scar infiltration under ultrasound guidance. She states she had no pain benefit after the scar infiltration. She states the intercostal nerve block seemed to work better for her in the past. She is continuing with Topomax. She states she is frustrated by her pain. Her job has changed and stress is also adding to her pain. Thenu Manikantan, MD [address] , [address], [place], [address], [facility] Management 09/16/2015 08:50:54 09/23/2015 text/html She is here for a follow up after an intercostal nerve block under ultrasound guidance. She states she had some pain benefit after the intercostal nerve block. She states she is able to move her right shoulder better and is able to tolerate clothing better. She is continuing with [employer]. Her job has changed and stress is also adding to her pain. She states she is having a hard time with keeping the lidoderm patches on. She states she had good pain benefit after applying the EMLA cream. She would prefer the lidocaine in a cream than the patches. Radha Hewitt MD [address] , [address], [place], [address], [facility] Pain Management 10/08/2015 08:48:40 OBGyn Episode No OBEpisode recorded.
== END 2024-12-02 09:39 | disposition home or self-care (01) ==
LOC: HO.MAMMO 09:38
PROVIDERS: PCP Internal Medicine Medical Oncology; Visit Provider Internal Medicine Medical Oncology
DX: N64.89 Other specified disorders of breast (principal)
CPT/HCPCS: 76642; 77061; 77065

== ENCOUNTER → 2024-12-02 10:00 | Outpatient (BNV) | payer OTHER, SELFPAY | PROVIDERS: PCP Internal Medicine Medical Oncology; Visit Provider Internal Medicine | DX: N63.21 Unspecified lump in the left breast, upper outer quadrant (principal) | CPT/HCPCS: 76642; 77061; 77065 ==

== ENCOUNTER 2024-12-03 09:06 | Outpatient (AMB) | payer OTHER, SELFPAY ==
--- OUTSIDE RECORDS SUMMARY | 2024-02-21 06:00 | XMS_ITS ---
Author Organization Humberto Roca III, MD Address [address] [place] [address] [place] [address] Care Team Providers Care Molder Bench Name Role Phone Oswald Murdock MD Primary Care Provider Humberto Franks [phone] Allergies Allergen (clinical drug ingredient) Drug/Non Drug [...] Date Provider Diagnosis Humberto Roca III, MD [address] [place] [address] [place] [address] 02/21/2024 Humberto Roca Former smoker Z87.89 1 [...] - Z79.810) She reports being up-to-date with AUTOMOBILE ASSEMBLER and has had no vaginal bleeding. Plan Of Treatment Medication Medication Name Sig Start Date Stop Date Notes Gabapentin 300 MG 1 capsule Orally Once a day Next Appt Details Follow Up: 1 Year, Reason: o v no tests Provider Name:Humberto Roca, 02/20/2025 10:30:00 AM, [address] [place] [address] [address] [place] [address], [phone], Progress Notes * Chaya YANGSheriOB:1960 (63 yo F)Acc No.[id number]:02/21/2024 Progress Notes Patient: Batsheva TERRY Provider: Maria T Roca MD :1960 A ge:63 Y S ex:Female Date:02/21/2024 Address:[address] [place] [phone] Pcp:Oswald Murdock MD Subjective: * Chief Complaints: [...] E x-cigarette smoker S he works at [employer] She has been for 10 years to George. They have 2 children. She was born in [place], [place]. * Medications: T akingGabapentin 300 MG [...] N otes :She reports being up-to-date with AUTOMOBILE ASSEMBLER and has had no vaginal bleeding. Plan: [...] 1 Generated for Radha mcintosh/Juanis/Keyshaitting on: 0 12/03/2024 09:37 AM EDT History and Physical Notes * HPI (History of Present Illness) Category Sub-Category Detail Notes COVID-19 Screening Questions Have you had any new onset fever, chills, cough, congestion, sore throat, shortness of breath, muscle aches?: No Have you been exposed to the virus with n the last 10 days?: No Have you travelled internationally in [facility] last 10 days?: No Have [...]
--- NOTE | 2024-12-03 09:10 | MHC.OFFVIS ---
Vital Signs 12/03/24 09:18 Height 5 ft 4 in Weight 170 lb 2 oz BMI 29.2 BP 176/85 H Blood Pressure Location Lt brachial Position Sitting Pulse 92 Intake Visit Reasons: US BX L Brst 2'oclock Intake Note: Patient is seen in office for ultrasound biopsy CONSULT left breast 2 o'clock asymmetries. Pt c/o: had right breast cancer in the past, does not feel a lump in the left breast, takes Gabapentin for breast pain Bx sched:12/12/24 @ 9am Wheel Press Operator Required: No Industrial Aerial Installer: Industrial Aerial Installer Present Accompanied by: Self / Same As Patient Allergies adhesive Allergy (Unknown, Uncoded 12/03/24 09:24) rash percocet Allergy (Unknown, Uncoded 12/03/24 09:24) nausea/vomiting HPI Comments Details: 64-year-old female patient, former patient of Dr. Braswell with a previous history of infiltrating lobular carcinoma of the right breast presenting today for evaluation of a recent screening mammogram performed on 10/03/2024 as well as follow-up images and ultrasound on 12/02/2024 which revealed 2 irregular hypoechoic solid masses in the 2 o'clock position felt to be suspicious for malignancy. Ultrasound-guided core biopsy is scheduled at the [facility] on 12/12/2024. She previously underwent a right modified radical mastectomy on 03/23, she received 4 cycles of dose dense AC followed by 4 cycles of Taxotere and chest wall radiation. Pathology revealed 2 foci of infiltrating lobular carcinoma, 8 cm and 1.5 cm, grade 2, ER/FL positive, HER2 Yohan negative. Two sentinel nodes were positive (1 with macro metastases and the 2nd with micrometastases). Eight additional lymph nodes were removed all were negative for malignancy. TNM staging: T3 N1 M0, stage III. She was then started on tamoxifen following completion of the chemotherapy. She subsequently underwent a TRAM flap reconstruction of the right breast (Dr. Sal at [facility]) as well as reduction mammoplasty of the left breast. She denies any new breast symptoms but does still get some pain in the right axilla. She is using gabapentin for pain. [facility] Medical History Invasive lobular carcinoma of breast, stage 3 Surgical History History of 2 sections History of appendectomy History of mastectomy History of right breast biopsy Social History Alcohol intake: current Alcohol intake frequency: holidays/special occasions only Patient Tobacco Use Status: Never used Tobacco Female Reproductive History Menstrual Age of Menarche: 13 Age of menopause: 49 Total pregnancies: 3 Full term: 2 Number of Living Children: 2 Ab spontaneous: 1 Review of Systems Const All systems reviewed & are unremarkable except as noted in HPI and below Denies chills, Denies fever(s), Denies headache(s) and Denies poor appetite ENT Denies dizziness and Denies headache(s) Card Denies chest pain, Denies rapid heart rate, Denies palpitations and Denies slow heart rate Resp Denies chest congestion, Denies cough, Denies pain on inspiration and Denies wheezing GI Denies abdominal pain, Denies bloating, Denies change in stool character, Denies constipation, Denies diarrhea, Denies nausea, Denies vomiting and Denies hematemesis Denies nipple discharge Musc Reports tingling Skin/Breast Denies breast swelling, Denies breast skin changes, Denies breast pain, Denies breast mass, Denies change in breast shape, Denies change in pigmentation, Denies nipple discharge, Denies erythema and Denies rash Neuro Denies dizziness, Denies headache(s), Reports radicular pain, Reports tingling and Reports paresthesias (Right arm) Endo Denies palpitations Joaquin/Lymph Denies easy bleeding, Denies easy bruising and Denies lymphadenopathy Aller/Immun Denies wheezing Physical Exam Const General: well developed Nutritional Appearance: well nourished Orientation/consciousness: patient oriented x3 Limitations: no limitations HEENT Head: Yes normocephalic and Yes atraumatic Ears: hearing grossly normal bilaterally Neck Neck: Yes normal visual inspection, Yes no lymphadenopathy, Yes trachea midline and Yes supple Thyroid: Thyroid normal Chest Other: Right breast reconstruction with tram flap, tissue is soft with radiation changes to the needed skin. No subcutaneous nodules and no lymphadenopathy palpable. No skin ulceration or bleeding. Left breast, status post reduction mammoplasty, no palpable mass, no skin change, no nipple discharge, no palpable lymph nodes. Special attention to the 02:00 location, 4 cm from the nipple reveals no definite palpable mass. Resp Other: Breathing comfortably on room air, no respiratory distress GI Inspection: Yes normal to inspection Skin Other: Warm, dry, no rash, radiation change right chest Neuro General: patient oriented x3 Extrem General: Yes no clubbing, cyanosis or edema Assessment & Plan Assessment & Plan (1) Invasive lobular carcinoma of breast, stage 3: Code(s): C50.919 - Malignant neoplasm of unspecified site of unspecified female breast Category: Medical (2) Abnormal mammogram of left breast: Code(s): R92.8 - Other abnormal and inconclusive findings on diagnostic imaging of breast Category: Medical (3) Abnormal ultrasound of breast: Code(s): R92.8 - Other abnormal and inconclusive findings on diagnostic imaging of breast Category: Medical Plan 64-year-old female patient with a prior history of right breast invasive lobular carcinoma, status post right modified radical mastectomy with chest radiation followed by TRAM flap reconstruction, now presenting with a new mammogram and ultrasound which revealed a density in the left breast at the 2 o'clock position approximately 4 cm to the nipple, felt to be high suspicion for malignancy. She is scheduled for an ultrasound-guided core biopsy at the [facility] on 12/12/2024. I have asked her to return approximately 1 week to review the pathology results and discuss treatment options. She expressed understanding and agrees with the plan. Coding Level of Care Code Est Pt Level 4 (67498) Complex EM visit Add On G2211 Diagnoses Invasive lobular carcinoma of breast, stage 3 C50.919 Abnormal mammogram of left breast R92.8 Abnormal ultrasound of breast R92.8
[2024-12-03 09:18] VITALS: BP 176/85; PULSE 92; BMI 29.2
== END 2024-12-03 09:26 | disposition home or self-care (01) ==
LOC: HO.HGS 09:07
PROVIDERS: PCP Internal Medicine Medical Oncology; Visit Provider Surgery
DX: C50.919 Malignant neoplasm of unspecified site of unspecified female breast (principal); R92.8 Other abnormal and inconclusive findings on diagnostic imaging of breast
CPT/HCPCS: 99214; G2211

== ENCOUNTER 2024-12-12 08:28 | Outpatient (REF) | payer OTHER, SELFPAY ==
--- OUTSIDE RECORDS SUMMARY | 2024-02-21 06:00 | XMS_ITS ---
Author Organization Humberto Roca III, MD Address [address] [place] [address] [place] [address] Care Team Providers Care Equipment Maintenance Superintendent Name Role Phone Oswald Murdock MD Primary Care Provider Humberto Franks [phone] Allergies Allergen (clinical drug ingredient) Drug/Non Drug [...] Date Provider Diagnosis Humberto Roca III, MD [address] [place] [address] [place] [address] 02/21/2024 Humberto Roca Former smoker Z87.89 1 [...] - Z79.810) She reports being up-to-date with BLUNGER MACHINE OPERATOR and has had no vaginal bleeding. Plan Of Treatment Medication Medication Name Sig Start Date Stop Date Notes Gabapentin 300 MG 1 capsule Orally Once a day Next Appt Details Follow Up: 1 Year, Reason: o v no tests Provider Name:Humberto Roca, 02/20/2025 10:30:00 AM, [address] [place] [address] [address] [place] [address], [phone], Progress Notes * Chaya YANGSheriOB:1960 (63 yo F)Acc No.[id number]:02/21/2024 Progress Notes Patient: Batsheva TERRY Provider: Maria T Roca MD :1960 A ge:63 Y S ex:Female Date:02/21/2024 Address:[address] [place] [phone] Pcp:Oswald Murdock MD Subjective: * Chief Complaints: [...] E x-cigarette smoker S he works at [employer]. She has been for 10 years to George. They have 2 children. She was born in [place], [place]. * Medications: T akingGabapentin 300 MG [...] N otes :She reports being up-to-date with BLUNGER MACHINE OPERATOR and has had no vaginal bleeding. Plan: [...] 1 Generated for Radha mcintosh/Juanis/Keyshaitting on: 0 12/12/2024 08:37 AM EDT History and Physical Notes * HPI (History of Present Illness) Category Sub-Category Detail Notes COVID-19 Screening Questions Have you had any new onset fever, chills, cough, congestion, sore throat, shortness of breath, muscle aches?: No Have you been exposed to the virus with n the last 10 days?: No Have you travelled internationally in [facility] last 10 days?: No Have you [...]
--- NOTE | ~2024-12-12 | MM_ITS ---
PROCEDURE: ULTRASOUND-GUIDED LEFT BREAST BIOPSY CLINICAL INFORMATION: 2 solid irregular masses in the left breast at 2:00 4 cm from the nipple here for ultrasound-guided core needle biopsy. COMPARISON: Priors on PACS. TECHNIQUE: The details of the procedure, as well as the risks, benefits, and alternatives to the procedure were explained to the patient in detail and all of her questions were answered, after which, written informed consent was obtained. PROCEDURE: Prior to the procedure, sonography revealed Two solid irregular masses at 2:00 4 cm from the nipple in the left breast. A time-out was performed, the lesions intended for biopsy was targeted and the skin of the left breast was then prepped and draped in the usual sterile fashion. Site A: Using sonographic guidance, sterile technique, and 1% lidocaine without epinephrine for local anesthesia, a total of 4 cores were obtained through the targeted area with a 14-gauge biopsy device. At the completion of tissue sampling, a single coil metallic clip was deposited at the biopsy site. Site 8B: Using sonographic guidance, sterile technique, and 1% lidocaine without epinephrine for local anesthesia, a total of 4 cores were obtained through the targeted area with a 14-gauge biopsy device. At the completion of tissue sampling, a single butterfly metallic clip was deposited at the biopsy site. An appropriate sample was obtained. The postprocedure 2-view direct digital mammogram reveals satisfactory positioning of the biopsy clips. The patient tolerated the procedure well and, after assuring adequate hemostasis, was discharged in good condition after reviewing postbiopsy breast care instructions. Final pathology results are pending. MM/MM tomosynthesis diagnostic LT IMPRESSION: 1. Uncomplicated sonographically-guided core biopsy of the left breast. The 2-view direct digital postprocedure mammogram reveals satisfactory positioning of the biopsy clips. 2. Final pathology results are pending. A separate report with final recommendations will be issued once these results are made available. Electronically signed by: Fidelina Brandon DO 12/12/2024 11:51 AM EDT
[2024-12-12] MEDS: Lidocaine HCl 1 % 20 ML VIAL 18 ML SUBCUT (09:51)
== END 2024-12-12 08:29 | disposition home or self-care (01) ==
LOC: HO.MAMMO 08:28
PROVIDERS: PCP Internal Medicine Medical Oncology; Visit Provider Surgery
DX: R92.8 Other abnormal and inconclusive findings on diagnostic imaging of breast (principal)
CPT/HCPCS: 19083; 19084; 77061; 77065; 88305; 88341; 88342; 88360; A4648; J2003

== ENCOUNTER → 2024-12-12 09:00 | Outpatient (BNV) | payer OTHER, SELFPAY | PROVIDERS: PCP Internal Medicine Medical Oncology; Visit Provider Internal Medicine | DX: N63.25 Unspecified lump in the left breast, overlapping quadrants (principal) | CPT/HCPCS: 19083; 19084; 77065 ==

== ENCOUNTER 2024-12-18 10:07 | Outpatient (AMB) | payer OTHER, SELFPAY ==
--- OUTSIDE RECORDS SUMMARY | 2024-02-21 06:00 | XMS_ITS ---
Author Organization Humberto Roca III, MD Address [address] [place] [address] [place] [address] Care Team Providers Care Language Path Name Role Phone Oswald Murdock MD Primary Care Provider Humberto Franks [phone] Allergies Allergen (clinical drug ingredient) Drug/Non Drug [...] Date Provider Diagnosis Humberto Roca III, MD [address] [place] [address] [place] [address] 02/21/2024 Humberto Roca Former smoker Z87.89 1 [...] - Z79.810) She reports being up-to-date with NEON INSTALLER and has had no vaginal bleeding. Plan Of Treatment Medication Medication Name Sig Start Date Stop Date Notes Gabapentin 300 MG 1 capsule Orally Once a day Next Appt Details Follow Up: 1 Year, Reason: o v no tests Provider Name:Humberto Roca, 02/20/2025 10:30:00 AM, [address] [place] [address] [address] [place] [address], [phone], Progress Notes * Chaya YANGSheriOB:1960 (63 yo F)Acc No.[id number]:02/21/2024 Progress Notes Patient: Batsheva TERRY Provider: Maria T Roca MD :1960 A ge:63 Y S ex:Female Date:02/21/2024 Address:[address] [place] [phone] Pcp:Oswald Murdock MD Subjective: * Chief Complaints: [...] E x-cigarette smoker S he works at [employer]. She has been for 10 years to George. They have 2 children. She was born in [place], [place]. * Medications: T akingGabapentin 300 MG [...] N otes :She reports being up-to-date with NEON INSTALLER and has had no vaginal bleeding. Plan: [...] 1 Generated for Radha mcintosh/Juanis/Keyshaitting on: 0 12/18/2024 10:40 AM EDT History and Physical Notes * HPI (History of Present Illness) Category Sub-Category Detail Notes COVID-19 Screening Questions Have you had any new onset fever, chills, cough, congestion, sore throat, shortness of breath, muscle aches?: No Have you been exposed to the virus with n the last 10 days?: No Have you travelled internationally in [facility] last 10 days?: No Have you been [...]
--- NOTE | 2024-12-18 10:26 | MHC.OFFVIS ---
Vital Signs 12/18/24 10:30 Height 5 ft 4 in Weight 171 lb BMI 29.3 BP 176/84 H Blood Pressure Location Lt brachial Position Sitting Pulse 92 Intake Visit Reasons: s/p US BX L Brst 2'oclock Intake Note: Patient is seen in office for ultrasound biopsy RESULTS left breast. Pt c/o: sore and tender, denies redness or signs of infection Painter And Decorator Required: No Accompanied by: Self / Same As Patient Allergies adhesive Allergy (Unknown, Uncoded 12/03/24 09:24) rash percocet Allergy (Unknown, Uncoded 12/03/24 09:24) nausea/vomiting Medication List - Last Reconciled 12/18/24 by Rodger Doe MD amitriptyline 50 mg PO BEDTIME PRN 30 days cyclobenzaprine 5 mg PO BEDTIME gabapentin 600 mg PO TID 30 days lidocaine 5% 1 patch topical DAILY HPI Comments Details: 64-year-old female patient, former patient of Dr. Braswell with a previous history of infiltrating lobular carcinoma of the right breast returning following a ultrasound-guided core biopsy x2 at the [facility] on 12/12/2024. A recent screening mammogram performed on 10/03/2024 as well as follow-up images and ultrasound on 12/02/2024 which revealed 2 irregular hypoechoic solid masses in the 2 o'clock position felt to be suspicious for malignancy. Her past history is significant for a right modified radical mastectomy on 03/23 for invasive lobular carcinoma, she received 4 cycles of dose dense AC followed by 4 cycles of Taxotere and chest wall radiation. Pathology revealed 2 foci of infiltrating lobular carcinoma, 8 cm and 1.5 cm, grade 2, ER/TX positive, HER2 Yohan negative. Two sentinel nodes were positive (1 with macro metastases and the 2nd with micrometastases). Eight additional lymph nodes were removed all were negative for malignancy. TNM staging: T3 N1 M0, stage III. She was then started on tamoxifen following completion of the chemotherapy. She subsequently underwent a TRAM flap reconstruction of the right breast (Dr. Sal at [facility]) as well as reduction mammoplasty of the left breast. She denies any new breast symptoms but does still get some pain in the right axilla. She is using gabapentin for pain. Pathology results for the left breast ultrasound-guided core biopsy of 12/12/2024 reveal invasive carcinoma with lobular and ductal features, located in 2 lesions, ER positive, TX positive, HER2 Yohan negative. She tolerated the procedure well and returns today to discuss the pathology results. [facility] Medical History Invasive lobular carcinoma of breast, stage 3 Surgical History History of 2 sections History of appendectomy History of mastectomy History of right breast biopsy Social History Alcohol intake: current Alcohol intake frequency: holidays/special occasions only Patient Tobacco Use Status: Never used Tobacco Female Reproductive History Menstrual Age of Menarche: 13 Review of Systems Const All systems reviewed & are unremarkable except as noted in HPI and below Physical Exam Vital Signs: Last Vital Signs Pulse 92 12/18/24 10:30 BP 176/84 H 12/18/24 10:30 BMI result Body Mass Index 29.3 Const General: well developed Nutritional Appearance: well nourished Orientation/consciousness: patient oriented x3 Limitations: no limitations HEENT Head: Yes normocephalic and Yes atraumatic Ears: hearing grossly normal bilaterally Neck Neck: Yes normal visual inspection, Yes no lymphadenopathy, Yes trachea midline and Yes supple Thyroid: Thyroid normal Chest Other: From previous examination: Right breast reconstruction with tram flap, tissue is soft with radiation changes to the needed skin. No subcutaneous nodules and no lymphadenopathy palpable. No skin ulceration or bleeding. Left breast, status post reduction mammoplasty, no palpable mass, no skin change, no nipple discharge, no palpable lymph nodes. Special attention to the 02:00 location, 4 cm from the nipple reveals no definite palpable mass. 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 This revealed an invasive carcinoma of the left breast with both ductal and lobular features. I reviewed the pathology results in detail with the patient. Both areas of biopsy were positive for invasive breast cancer. I recommended further evaluation with an MRI of the breast the evaluate for additional disease. The patient has indicated that she is considering mastectomy but is agreeable to proceeding with the MRI. I will call her with the results of the MRI and discuss next steps. She expressed understanding and agrees with the plan. Orders: Orders MR breast BI wo/w con Today C50.912 - Malignant neoplasm of unspecified site of left female breast Coding Level of Care Code Est Pt Level 3 (51683) Diagnoses Primary invasive malignant neoplasm of left female breast C50.912
[2024-12-18 10:30] VITALS: BP 176/84; PULSE 92; BMI 29.3
== END 2024-12-18 10:56 | disposition home or self-care (01) ==
LOC: HO.HGS 10:08
PROVIDERS: PCP Internal Medicine Medical Oncology; Visit Provider Surgery
DX: C50.912 Malignant neoplasm of unspecified site of left female breast (principal)
CPT/HCPCS: 99213

== ENCOUNTER 2024-12-25 14:49 | Outpatient (REF) | payer OTHER, SELFPAY ==
--- OUTSIDE RECORDS SUMMARY | 2024-02-21 06:00 | XMS_ITS ---
Author Organization Humberto Roca III, MD Address [address] [place] [address] [place] [address] Care Team Providers Care Case Coordinator Name Role Phone Oswald Murdock MD Primary Care Provider Humberto Franks [phone] Allergies Allergen (clinical drug ingredient) Drug/Non Drug Allergy documented on EMR Reaction Allergy Type Onset Date Status Seasonale Unknown Drug Allergy Active REASON FOR VISIT History of right breast cancer, Drug-induced neuropathy Medications Medication SIG (Take, Route, Fr equency, Duration) Notes Start Date End Date Status Gabapentin 300 MG 1 capsule Orally Once a day Active Social History Tobacco Use: Social History Observation Description Date Details (start date - stop date) Former Smoker NA - NA Sex Assigned At : Social History Observation Description Sex Assigned At Female Tobacco Use/Smoking Question Answer Notes Patient is a former smoker How long has it been since you last smoked? > 10 years Additional Findings: Tobacco Non-User Ex-cigaret te smoker Vital Signs Temperature 98.4 degrees Fahrenheit 02/21/20 24 Blood pressure systolic 133 mm Hg 02/21/20 24 Blood pressure diastolic 81 mm Hg 024 Heart Rate 86 /min 02/21/2024 Height 65 in 02/21/2024 Weight 166 lbs 02/21/2024 BMI 27.62 kg/m2 02/21/2024 Encounters Encounter Location Date Provider Diagnosis Humberto Roca III, MD [address] [place] [address] [place] [address] 02/21/2024 Humberto Roca Former smoker Z87.89 1 ; Malignant neoplasm of upper-outer quadrant of right female breast C50.411 ; Overweight E66.3 ; Status post right breast reconstruction Z98.89 and Use of tamoxifen (Nolvadex) Z79.810 Assessments Encounter Date Diagnosis (ICD Code) Assessment Notes Treat ment Notes Treatment Clinical Notes 02/21/2024 Former smoker (ICD-1 0 - Z87.891) She is highly motivated not to smoke. She has a plan for prevention of relapse in times of stress. 02/21/2024 Malignant neoplasm o f upper-outer quadrant of right female breast (ICD-10 - C50.411) There is no sign of a new primary are of returns today. 02/21/2024 Overweight (ICD-10 - E66.3) She has lost 9 more pounds. She is no longer obese. We discussed her weight loss strategy today. We reviewed her diet and nutrition today. 02/21/2024 Status post right breast reconstruction (ICD-10 - Z98.89) There is no change in the appearance of breast and the cosmetic result is adequate. 02/21/2024 Use of tamoxifen (Nolvadex) (ICD-10 - Z79.810) She reports being up-to-date with MAINTENANCE CLERK and has had no vaginal bleeding. Plan Of Treatment Medication Medication Name Sig Start Date Stop Date Notes Gabapentin 300 MG 1 capsule Orally Once a day Next Appt Details Follow Up: 1 Year, Reason: o v no tests Provider Name:Humberto Roca, 01/08/2025 09:00:00 AM, [address] [place] [address] [address], [place], [address], Provider Name:Humberto Roca, 02/20/2025 10:30:00 AM, [address] [place] [address] [address], [place], [address], Progress Notes * Chaya YANGSheriOB:1960 (63 yo F)Acc No.[id number]:02/21/2024 Progress Notes Patient: Batsheva TERRY Provider: Maria T Roca MD :1960 A ge:63 Y S ex:Female Date:02/21/2024 Address:[address] [place] [address] [id number] Pcp:Oswald Murdock MD Subjective: * Chief Complaints: * H istory of right breast cancerDrug-induced neuropathy * HPI: C OVID-19 Screening: Questions H ave you experienced fever, chills, cough, sore throat, shortness of breath, difficulty breathing, muscle aches, loss of taste or smell? N o H ave you been exposed to the virus within the last 10 days? N o H ave you travelled internationally in the last 10 days? N o H ave you been exposed to COVID-19 in the past? N o on amitriptyline 25 slee;, right reconstruction. She returns for a 6 month check after a history of early breast cancer on the right treated with mastectomy followed by reconstruction. She then underwent adjuvant hormonal therapy with tamoxifen and adjuvant chemotherapy. This left her with mild peripheral neuropathy primarily in the lower extremities and neuropathic pain. She is now taking 25 mg of amitriptyline daily for the pain. She has remained free of disease to date. She has no new complaints. She is up-to-date with mammography. She conducting breast self-examination regularly. Her examination today showed no sign of recurrence or of a new primary. * ROS: G eneral/Constitutional: pain M ild to moderate neuropathic pain lower extremities, ootherwiseonly normal aches and pains. C hills d enies. F atigue a dmits. F ever?denies. E NT: Decreased hearing d enies. R espiratory: Cough d enies. C ardiovascular: Chest pain with exertion d enies. D yspnea on exertion?denies. S hortness of breath d enies. G astrointestinal: Constipation o ccasional. D ecreased appetite d enies. D iarrhea d enies. H eartburn d enies. N ausea d enies. R ectal bleeding d enies. V omiting d enies. H ematology: bruising d enies. p etechiae d enies. S wollen glands n one have been noted. G enitourinary: Frequent urination d enies. M usculoskeletal: Muscle aches d enies. P ainful joints d enies. S ciatica d enies. W eakness d enies. S kin: Itching d enies. R katlyn d enies. S kin lesion(s)?denies. N eurologic: Difficulty speaking d enies. D izziness d enies.?Headache d enies. L ow back pain d enies. P sychiatric: Depressed mood d enies. * Medical History: * Surgical History: 2 caesarean sections appendectomy right breast reconstruction left breast reduction full dental extractions 2019 * Hospitalization/Major Diagno stic Procedure: D enies Past Hospitalization * Family History: F ather: , unknown. M other: 83 yrs, hyperlipidemia, chronic obstructive pulmonary disease, hypertension, diagnosed with HTN, Hyperlipidemia. 3 brother(s) , 3 sister(s) - healthy. 1 son(s) , 1 daughter(s) - healthy. . There is no history of breast cancer history. * Social History: T obacco Use: T obacco Use/Smoking P atjuan is a f ormer smoker H ow long has it been since you last smoked??> 10 years A dditional Findings: Tobacco Non-User E x-cigarette smoker S he works at [employer]. She has been for 10 years to George. They have 2 children. She was born in [place], [place]. * Medications: T akingGabapentin 300 MG Capsule 1 capsule Orally Once a day Medication List reviewed and reconciled with the patientTaking Gabapentin 300 MG Capsule 1 capsule Orally Once a day Medication List reviewed and reconciled with the patient * Allergies: S violet[Allergies Verified] Objective: * Vitals: H t: 65, Wt: 166, BMI:27.62, BP: 133/81, HR: 86, Temp: 98.4, Wt-k.3. * Examination: G eneral Examination: GENERAL APPEARANCE: p leasant, well nourished, well developed, in no acute distress, calm and relaxed, overweight, woman. HEAD: a traumatic, normocephalic. EYES: e marielena, perrla, anicteric, conjugate. EARS: n ormal. NOSE: s eptum intact. ORAL CAVITY: n ormal, unremarkable. NECK/THYROID: n o jugular venous distention, no carotid bruit, thyroid normal. LYMPH NODES: n o enlarged lymph nodes,spleen normal. SKIN: n o suspicious lesions, anicteric. HEART: n o clicks, gallops, murmurs, or rubs, regular rhythm, S1, S2 normal, no s3, or vascular bruits. LUNGS: c lear to auscultation . BREASTS: L eft breast unremarkable, reconstructed right breast shows no signs of relapse.. ABDOMEN: b owel sounds normal, no ascites, no organomegaly, no mass, overweight. RECTAL EXAM: n ot examined. MUSCULOSKELETAL: e xtremities unremarkable, no clubbing, cyanosis or edema. PERIPHERAL PULSES: n ormal. NEUROLOGIC: a lert and oriented, cranial nerves 2-12 grossly intact, deep tendon reflexes 2+ symmetrical, motor strength normal upper and lower extremities, sensory exam intact. PSYCH: a lert, oriented. Assessment: * Assessment: 1. M alignant neoplasm of upper-outer quadrant of right female breast - C50.411 (Primary) ? N otes :There is no sign of a new primary are of returns today. 2 . F ormer smoker - Z87.891 N otes :She is highly motivated not to smoke. She has a plan for prevention of relapse in times of stress. 3 . O verweight - E66.3 N otes :She has lost 9 more pounds. She is no longer obese. We discussed her weight loss strategy today. We reviewed her diet and nutrition today. 4 . S tatus post right breast reconstruction - Z98.89 N otes :There is no change in the appearance of breast and the cosmetic result is adequate. 5 . U se of tamoxifen (Nolvadex) - Z79.810 N otes :She reports being up-to-date with MAINTENANCE CLERK and has had no vaginal bleeding. Plan: * Treatment: * Procedure Codes: * Preventive Medicine: Counseling: C are goal follow-up plan: Counseling for abnormal BMI given Y es Above Normal BMI Follow-up D ietary management education, guidance, and counseling S moking/Tobacco Use Patient counseled on the dangers of tobacco use and urged to quit. 1 * Follow Up: 1 Year (Reason: ov no tests) * Images: * Sign off status: Completed true * Provider: Maria T Roca MD Date: 1 Generated for Radha mcintosh/Juanis/eTransmitting on: 0 12/25/2024 03:03 PM EDT History and Physical Notes * HPI (History of Present Illness) Category Sub-Category Detail Notes COVID-19 Screening Questions Have you had any new onset fever, chills, cough, congestion, sore throat, shortness of breath, muscle aches?: No Have you been exposed to the virus withi n the last 10 days?: No Have you travelled internationally in [facility] last 10 days?: No Have you been exposed to COVID-19 in the past?: No Examination Category Sub-Category Detail Notes General Examination GENERAL APPEARANCE: pleasant , well nourished, well developed, in no acute distress, calm and relaxed, overweight, woman HEAD: atraumatic, normocep halic EYES: eomi, perrla, anicte zia, conjugate EARS: normal NOSE: septum intact NECK/THYROID: no jugular venous di stention, no carotid bruit, thyroid normal HEART: no clicks, gallops, murmurs, or rubs, regular rhythm, S1, S2 normal, no s3, or vascular bruits LUNGS: clear to auscultatio n ABDOMEN: bowel sounds normal, no ascites, no organomegaly, no mass, overweight NEUROLOGIC: alert and oriented, cranial nerves 2-12 grossly intact, deep tendon reflexes 2+ symmetrical, motor strength normal upper and lower extremities, sensory exam intact SKIN: no suspicious lesion s, anicteric PERIPHERAL PULSES: normal BREASTS: Left breast unremark able, reconstructed right breast shows no signs of relapse. MUSCULOSKELETAL: extremities unremark able, no clubbing, cyanosis or edema LYMPH NODES: no enlarged lymph no demar,spleen normal RECTAL EXAM: not examined PSYCH: alert, oriented ORAL CAVITY: normal, unremarkable
--- NOTE | ~2024-12-25 | MR_ITS ---
EXAMINATION: MR BREAST WITHOUT AND WITH CONTRAST, BILATERAL CLINICAL INFORMATION: Biopsy-proven invasive ductal carcinoma 2 biopsy sites in the upper outer left breast. History of right breast cancer status post mastectomy 15 years ago. COMPARISON: Comparison is made with relevant prior imaging. TECHNIQUE: MR imaging of the breast was performed using T1, T2 and fat saturated techniques. Dynamic multiphase imaging was also performed after the administration of intravenous gadolinium contrast agent. Computer generated 3D reconstruction and enhancement kinetic analysis was ulitized by the radiologist in the interpretation of this examination. FINDINGS: Breast composition: Heterogeneous fibroglandular breast tissue Background parenchymal enhancement: Moderate LEFT BREAST: There are multiple solid irregular enhancing masses in the upper central upper outer left breast anterior and middle depth with some surrounding satellite lesions and suspicious nonmass enhancement. The overall area of multiple irregular enhancing masses solid masses, satellite lesions and background suspicious non-mass enhancement measures 37 mm anterior to posterior by 27 mm transverse by 66 mm superior to inferior. Biopsy marker clips in the upper outer breast into a the solid irregular masses, the extent of distance between the marker clips does not define the entire extent of suspicious enhancement. Normal-appearing intramammary lymph node upper inner breast far posterior depth series 4 image 115/172. Multiple prominent left axillary lymph nodes. RIGHT BREAST: Post mastectomy changes. No suspicious enhancing masses or areas of non mass enhancement. No axillary or internal mammary adenopathy. Limited views of the chest and abdomen are unremarkable. MR/MR breast BI wo/w con IMPRESSION: Left: Left upper outer quadrant biopsy-proven malignancy in 2 sites with extensive surrounding suspicious masses and nonmass enhancement. The entire area of suspicious enhancing masses, satellite lesions and background nonmass enhancement encompasses up to 66 mm superior to inferior by 37 mm anterior to posterior by 27 mm transverse approximately. If breast conservation therapy is being considered additional biopsies could be performed however suspicious satellite and vague nonmass enhancement may be difficult to biopsy on entire extent. The patient is under the care of a breast surgeon for excision and further management of known left breast biopsy-proven malignancy. 2. Multiple prominent left axillary lymph nodes. Recommend left ultrasound of the axilla at this time. Right: Status post mastectomy changes. No suspicious areas of enhancement. Benign. ASSESSMENT: LEFT BREAST: BI-RADS 6 biopsy-proven malignancy. RIGHT BREAST: BI-RADS 2 benign. Status post mastectomy changes. RECOMMENDATIONS: Biopsy-proven malignancy in the upper outer left breast. The patient is under the care of a breast surgeon for excision and further management. Multiple prominent left axillary lymph nodes. Recommend left axillary ultrasound evaluation at this time. Above findings discussed with patients breast surgeon Dr Doe. Electronically signed by: Fidelina Brandon DO 12/26/2024 03:08 PM EDT
== END 2024-12-25 14:50 | disposition home or self-care (01) ==
LOC: HO.MRI 14:49
PROVIDERS: Visit Provider Surgery
DX: C50.912 Malignant neoplasm of unspecified site of left female breast (principal); Z85.3 Personal history of malignant neoplasm of breast
CPT/HCPCS: 77049; A9585

== ENCOUNTER → 2024-12-25 14:59 | Outpatient (BNV) | payer OTHER, SELFPAY | PROVIDERS: Visit Provider Internal Medicine | DX: C50.412 Malignant neoplasm of upper-outer quadrant of left female breast (principal); Z90.11 Acquired absence of right breast and nipple | CPT/HCPCS: 77049 ==

== ENCOUNTER → 2025-01-06 11:07 | Outpatient (BNV) | payer OTHER, SELFPAY | PROVIDERS: Visit Provider Internal Medicine | DX: D05.02 Lobular carcinoma in situ of left breast (principal) | CPT/HCPCS: 99205; G2211 ==

== ENCOUNTER 2025-01-08 09:56 | Inpatient (IN) | payer OTHER, SELFPAY ==
--- OUTSIDE RECORDS SUMMARY | 2024-02-21 06:00 | XMS_ITS ---
Author Organization Humberto Roca III, MD Address [address] [place] [address] [place] [address] Care Team Providers Care Lifeguard Name Role Phone Oswald Murdock MD Primary Care Provider Humberto Franks [phone] Allergies Allergen (clinical drug ingredient) Drug/Non Drug [...] Date Provider Diagnosis Humberto Roca III, MD [address] [place] [address] [place] [address] 02/21/2024 Humberto Roca Former smoker Z87.89 1 [...] - Z79.810) She reports being up-to-date with GEOSPATIAL SPECIALIST and has had no vaginal bleeding. Plan Of Treatment Medication Medication Name Sig Start Date Stop Date Notes Gabapentin 300 MG 1 capsule Orally Once a day Next Appt Details Follow Up: 1 Year, Reason: o v no tests Provider Name:Humberto Roca, 01/14/2025 02:30:00 PM, [address] [place] [address] [address], [place], [address], Provider Name:Humberto Roca, 02/20/2025 10:30:00 AM, [address] [place] [address] [address], [place], [address], Progress Notes * Chaya YANGSheriOB:1960 (63 yo F)Acc No.[id number]:02/21/2024 Progress Notes Patient: Batsheva TERRY Provider: Maria T Roca MD :1960 A ge:63 Y S ex:Female Date:02/21/2024 Address:[address] [place] [address] [phone] Pcp:Oswald Murdock MD Subjective: * Chief Complaints: [...] E x-cigarette smoker S he works at [employer]. She has been for 10 years to George. They have 2 children. She was born in [place], [place]. * Medications: T akingGabapentin 300 MG [...] N otes :She reports being up-to-date with GEOSPATIAL SPECIALIST and has had no vaginal bleeding. Plan: [...] 1 Generated for Radha mcintosh/Juanis/eTransmitting on: 0 01/07/2025 07:55 AM EDT History and Physical Notes * HPI (History of Present Illness) Category Sub-Category Detail Notes COVID-19 Screening Questions Have you had any new onset fever, chills, cough, congestion, sore throat, shortness of breath, muscle aches?: No Have you been exposed to the virus withi n the last 10 days?: No Have you travelled internationally in [facility] last 10 days?: No Have you been [...]
--- OUTSIDE RECORDS SUMMARY | 2024-12-18 09:09 | XMS_ITS ---
Author Organization Humberto Roca III, MD Address [address] [place] [address] [place] [address] Care Team Providers Care Tree Trimmer Helper Name Role Phone Oswald Murdock MD Primary Care Provider Humberto Franks [phone] REASON FOR VISIT pathology results Social History Sex Assigned At : Social History Observation Description Sex Assigned At Female Encounters Encounter Location Date Provider Diagnosis Humberto Roca III, MD [address] [place] [address] [place] [address] 12/18/2024 Humberto Roca Plan Of Treatment Next Appt Details Provider Name:Humberto Roca, 01/14/2025 02:30:00 PM, [address] [place] [address] [place], [address], Provider Name:Humberto Roca, 02/20/2025 10:30:00 AM, [address] [place] [address] [place], [address], Progress Notes * Chaya YANGeDOB:1960 (64 yo F)Acc No.[id number]:12/18/2024 Patient: Batsheva TERRY :1960 A ge:64 Y S ex:Female Address:[address] [place] [address] [place] [address] * true * Date: Generated for Printi ng/Faxing/eTransmitting on: 0 01/07/2025 07:55 AM EDT
--- OUTSIDE RECORDS SUMMARY | 2024-12-31 09:48 | XMS_ITS ---
Author Organization Humberto Roca III, MD Address [address] [place] [address] [place] [address] Care Team Providers Care Cpo Name Role Phone Oswald Murdock MD Primary Care Provider Humberto Franks [phone] REASON FOR VISIT update Social History Sex Assigned At : Social History Observation Description Sex Assigned At Female Encounters Encounter Location Date Provider Diagnosis Humberto Roca III, MD [address] [place] [address] [address] [place] [address] 12/31/2024 Humberto Roca Plan Of Treatment Next Appt Details Provider Name:Humberto Roca, 01/14/2025 02:30:00 PM, [address] [place] [address] [place], [address], Provider Name:Humberto Roca, 02/20/2025 10:30:00 AM, [address] [place] [address] [place], [address], Progress Notes * Chaya YANGeDOB:1960 (64 yo F)Acc No.[id number]:12/31/2024 Patient: Batsheva TERRY :1960 A ge:64 Y S ex:Female Address:[address] [place] [address] [place] [address] * true * Date: Generated for Printi ng/Faxing/eTransmitting on: 0 01/07/2025 07:54 AM EDT
--- OUTSIDE RECORDS SUMMARY | 2025-01-07 07:55 | XMS_ITS | Patient Health Record ---
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 [place] [id number] Mammography Report Signed Patient: Batsheva Greenberg MR#: [id number] : 1960 Acct:[id number] Age/Sex: 64 / F ADM Date: 10/03/24 Loc: HO.MAMMO Attending Dr: Humberto Roca MD Ordering Physician: Humberto Roca MD Results: 0Incompl ete: Needs Additional Imaging Evaluation Date of Service: 10/03/24 Follow Up: Additional Imagi ng Procedure(s): MM tomosynthesis screening Accession Number(s): [id number] cc: Humberto Roca MD EXAMINATION: MM SCREENING DIGITAL BREAST TOMOSYNTHESIS, BILATERAL CLINICAL INFORMATION: Screening. Asymptomatic. Right breast cancer in 2010 status post mastectomy. COMPARISON: Mammography: This study is compared with prior exams dating back to TECHNIQUE: Digital breast tomosynthesis is performed in both the craniocaudal and mediolateral oblique views along with computer-aided detection (CAD). Synthesized 2D images are generated from the tomosynthesis. FINDINGS: The breasts are heterogeneously dense, which may obscure small masses (ACR BI-RADS breast composition Category c). There is a focal asymmetry in the upper outer breast best seen on CC view with associated distortion. No suspicious calcifications or other abnormal findings. MM/MM tomosynthesis screening LT IMPRESSION: Focal asymmetry in the left breast. Additional imaging recommended at this time. ASSESSMENT: BI-RADS BI-RADS 0 - Incomplete: Needs additional Imaging. RECOMMENDATION: 1. Additional views of the left breast. 2. Targeted ultrasound if warranted after review of the additional views. 3. Radiology department staff will contact the patient for additional imaging. Additional Imaging required This examination should not preclude the clinical evaluation of a suspicious palpable abnormality. This patient's information was entered into a reminder system with a target due date for their next mammogram. Electronically signed by: Fidelina Brandon DO 10/11/2024 04:50 PM EDT Dictated By: Fidelina Brandon DO Signed By: <Electronically signed by Fidelina Brandon DO in OV> 10/11/24 1650 DD/ 0815 TD/TT: 10/03/24 0830 Crna: [facility] [address] [place] [address] Mammography Report Signed Patient: Batsheva Greenberg MR#: [id number] : 1960 Acct:[id number] Age/Sex: 64 / F ADM Date: 10/03/24 Loc: HO.MAMMO Attending Dr: Humberto Roca MD Ordering Physician: Humberto Roca MD Results: 0Incompl ete: Needs Additiona l Imaging Evaluation Date of Service: Follow Up: Additional Imagi ng Procedure(s): MM devon osynthesis screening LT Accession Number(s): [id number] cc: Humberto Roca MD EXAMINATION: MM SCREENING DIGITAL BREAST TOMOSYNTHESIS, BILATERAL CLINICAL INFORMATION: Screening. Asymptoma tic. Right breast cancer in 2010 status post mastectomy. COMPARISON: Mammography: This st udy is compared with prior exams dating back to TECHNIQUE: Digital breast tomos ynthesis is performed in both the craniocaudal and mediolateral oblique views along with computer-aided detection (CAD). Synthesized 2D image s are generated from the tomosynthesis. FINDINGS: The breasts are hete rogeneously dense, which may obscure small masses (ACR BI-RADS breast composition Category c). There is a focal asy mmetry in the upper outer breast best seen on CC view with associated distortion. No suspicious calcif ications or other abnormal findings. M M/MM tomosynthesis screening LT IMPRESSION: Focal asymmetry in t he left breast. Additional imaging recommended at this time. ASSESSMENT: BI-RADS BI-RADS 0 - Incomplete: Needs additional Imaging. RECOMMENDATION: 1. Additional views of the left breast. 2. Targeted ultrasou nd if warranted after review of the additional views. 3. Radiology departm ent staff will contact the patient for additional imaging. Additional Imaging required This examination jose uld not preclude the clinical evaluation of a suspicious palpable abnormality. This patient's infor mation was entered into a reminder system with a target due date for their next mammogram. Electronically kodi d by: Fidelina Brandon DO 10/11/2024 04:50 PM EDT RP Dictated By: Fidelina Brandon DO Signed By: <Electron ically signed by Fidelina Brandon DO in OV> 10/11/24 1650 DD/ 0815 TD/TT: 10/03/24 0830 Crna: MM tomosynthesis added views L Reviewed date:12/22/2024 08:09:11 PM Interpretation: Performing Lab: Notes/Report: [facility] [address] [place] [address] Mammography Report Signed Patient: Batsheva Greenberg MR#: [id number] : 1960 Acct:[id number] Age/Sex: 64 / F ADM Date: 12/02/24 Loc: HO.MAMMO Attending Dr: Humberto Roca MD Ordering Physician: Humberto Roca MD Results: 4Suspici ous Finding Date of Service: 12/02/24 Follow Up: Biopsy Recommend ed Procedure(s): MM tomosynthesis added views L Accession Number(s): [id number] cc: Humberto Roca MD EXAMINATION: MM DIAGNOSTIC DIGITAL BREAST TOMOSYNTHESIS, LEFT Limited left breast ultrasound. CLINICAL INFORMATION: Call back from screening for developing focal asymmetry in the upper outer left breast with questioned associated distortion. COMPARISON: Mammography: [facility] on PACS. TECHNIQUE: Digital breast tomosynthesis is performed in both the craniocaudal and mediolateral oblique views along with computer-aided detection (CAD). Synthesized 2D images are generated from the tomosynthesis. FINDINGS: The breasts are heterogeneously dense, which may obscure small masses (ACR BI-RADS breast composition Category c). Focal asymmetry in the upper outer breast persists on additional imaging projections. No suspicious calcifications or other abnormal findings. Targeted color Doppler ultrasound scanning in the upper outer quadrant of the left breast demonstrates a hypoechoic irregular solid mass at 2:00 4 cm from the nipple measuring 9 x 11 x 7 mm and a hypoechoic irregular solid mass at 2:00 4 cm from the nipple measuring 7 x 6 x 10 mm. MM/MM tomosynthesis added views L IMPRESSION: 2 irregular hypoechoic solid masses at 2:00 4 cm from the nipple. Recommend histology with ultrasound-guided core needle biopsy at this time for confirmation. The findings and recommendations were discussed with the patient the procedure will be scheduled. ASSESSMENT: BI-RADS BI-RADS 4 - Suspicious finding RECOMMENDATION: Biopsy recommended Results were provided to the patient at time of visit by the technologist. This patient's information was entered into a reminder system with a target due date for their next mammogram. Electronically signed by: Fidelina Brandon DO 12/02/2024 10:44 AM EDT Dictated By: Fidelina Brandon DO Signed By: <Electronically signed by Fidelina Brandon DO in OV> 12/02/24 1044 DD/ 0945 TD/TT: 12/02/24 1010 Crna: [facility] [address] [place] [address] [place] [address] Mammography Report Signed Patient: Batsheva Greenberg MR#: [id number] : 1960 Acct:[id number] Age/Sex: 64 / F ADM Date: 12/02/24 Loc: HO.MAMMO Attending Dr: Humberto Roca MD Ordering Physician: Humberto Roca MD Results: 4Suspici ous Finding Date of Service: Follow Up: Biopsy Recommend ed Procedure(s): MM devon osynthesis added views L Accession Number(s): [id number] cc: Humberto Roca MD EXAMINATION: MM DIAGNOSTIC DIGITA L BREAST TOMOSYNTHESIS, LEFT Limited left breast ultrasound. CLINICAL INFORMATION: Call back from ailin castañeda for developing focal asymmetry in the upper outer left breast wi th questioned associated distortion. COMPARISON: Mammography: Priors on PACS. TECHNIQUE: Digital breast tomos ynthesis is performed in both the craniocaudal and mediolateral oblique views along with computer-aided detection (CAD). Synthesized 2D image s are generated from the tomosynthesis. FINDINGS: The breasts are hete rogeneously dense, which may obscure small masses (ACR BI-RADS breast composition Category c). Focal asymmetry in t he upper outer breast persists on additional imaging projections. No suspicious calcif ications or other abnormal findings. Targeted color Doppl er ultrasound scanning in the upper outer quadrant of the left breast d emonstrates a hypoechoic irregular solid mass at 2:00 4 cm from the n ipple measuring 9 x 11 x 7 mm and a hypoechoic irregular solid mass at 2:00 4 cm from the nipple measuring 7 x 6 x 10 mm. M M/MM tomosynthesis added views L IMPRESSION: 2 irregular hypoecho ic solid masses at 2:00 4 cm from the nipple. Recommend histology with ultrasound-guided core needle biopsy at this time for confirmatio n. The findings and recommendations were discussed with the patient the procedure will be scheduled. ASSESSMENT: BI-RADS BI-RADS 4 - Suspicious finding RECOMMENDATION: Biopsy recommended Results were provide d to the patient at time of visit by the technologist. This patient's infor mation was entered into a reminder system with a target due date for their next mammogram. Electronically kodi d by: Fidelina Brandon DO 12/02/2024 10:44 AM EDT RP Dictated By: Fidelina Brandon DO Signed By: <Electron ically signed by Fidelina Brandon DO in OV> 12/02/24 1044 DD/ 0945 TD/TT: 12/02/24 1010 Crna: US breast LT limited mamm on ly Reviewed date:12/22/2024 08:09:11 PM Interpretation: Performing Lab: Notes/Report: [facility]'[address] [place] [address] Ultrasound Report Signed Patient: Batsheva Greenberg MR#: [id number] : 1960 Acct:[id number] Age/Sex: 64 / F ADM Date: 12/02/24 Loc: HO.MAMMO Attending Dr: Humberto Roca MD Ordering Physician: Humberto Roca MD Date of Service: 12/02/24 Procedure(s): US breast LT limited mamm only Accession Number(s): [id number] cc: Humberto Roca MD EXAMINATION: MM DIAGNOSTIC DIGITAL BREAST TOMOSYNTHESIS, LEFT Limited left breast ultrasound. CLINICAL INFORMATION: Call back from screening for developing focal asymmetry in the upper outer left breast with questioned associated distortion. COMPARISON: Mammography: Priors on PACS. TECHNIQUE: Digital breast tomosynthesis is performed in both the craniocaudal and mediolateral oblique views along with computer-aided detection (CAD). Synthesized 2D images are generated from the tomosynthesis. FINDINGS: The breasts are heterogeneously dense, which may obscure small masses (ACR BI-RADS breast composition Category c). Focal asymmetry in the upper outer breast persists on additional imaging projections. No suspicious calcifications or other abnormal findings. Targeted color Doppler ultrasound scanning in the upper outer quadrant of the left breast demonstrates a hypoechoic irregular solid mass at 2:00 4 cm from the nipple measuring 9 x 11 x 7 mm and a hypoechoic irregular solid mass at 2:00 4 cm from the nipple measuring 7 x 6 x 10 mm. US/US breast LT limited mamm only IMPRESSION: 2 irregular hypoechoic solid masses at 2:00 4 cm from the nipple. Recommend histology with ultrasound-guided core needle biopsy at this time for confirmation. The findings and recommendations were discussed with the patient the procedure will be scheduled. ASSESSMENT: BI-RADS BI-RADS 4 - Suspicious finding RECOMMENDATION: Biopsy recommended Results were provided to the patient at time of visit by the technologist. This patient's information was entered into a reminder system with a target due date for their next mammogram. Electronically signed by: Fidelina Brandon DO 12/02/2024 10:44 AM EDT Dictated By: Fidelina Brandon DO Signed By: <Electronically signed by Fidelina Brandon DO in OV> 12/02/24 1044 DD/ 0944 TD/TT: 12/02/24 1022 Crna: [facility] [address] [place] [address] Ultrasound Report Signed Patient: Batsheva Greenberg MR#: [id number] : 1960 Acct:[id number] Age/Sex: 64 / F ADM Date: 12/02/24 Loc: HO.MAMMO Attending Dr: Humberto Roca MD Ordering Physician: Humberto Roca MD Date of Service: 12/02/24 Procedure(s): US ovidio ast LT limited mamm only Accession Number(s): [id number] cc: Humberto Roca MD EXAMINATION: MM DIAGNOSTIC DIGITA L BREAST TOMOSYNTHESIS, LEFT Limited left breast ultrasound. CLINICAL INFORMATION: Call back from ailin castañeda for developing focal asymmetry in the upper outer left breast wi th questioned associated distortion. COMPARISON: Mammography: Priors on PACS. TECHNIQUE: Digital breast tomos ynthesis is performed in both the craniocaudal and mediolateral oblique views along with computer-aided detection (CAD). Synthesized 2D image s are generated from the tomosynthesis. FINDINGS: The breasts are hete rogeneously dense, which may obscure small masses (ACR BI-RADS breast composition Category c). Focal asymmetry in t he upper outer breast persists on additional imaging projections. No suspicious calcif ications or other abnormal findings. Targeted color Doppl er ultrasound scanning in the upper outer quadrant of the left breast d emonstrates a hypoechoic irregular solid mass at 2:00 4 cm from the n ipple measuring 9 x 11 x 7 mm and a hypoechoic irregular solid mass at 2:00 4 cm from the nipple measuring 7 x 6 x 10 mm. U S/US breast LT limited mamm only IMPRESSION: 2 irregular hypoecho ic solid masses at 2:00 4 cm from the nipple. Recommend histology with ultrasound-guided core needle biopsy at this time for confirmatio n. The findings and recommendations were discussed with the patient the procedure will be scheduled. ASSESSMENT: BI-RADS BI-RADS 4 - Suspicious finding RECOMMENDATION: Biopsy recommended Results were provide d to the patient at time of visit by the technologist. This patient's infor mation was entered into a reminder system with a target due date for their next mammogram. Electronically okdi d by: Fidelina Brandon DO 12/02/2024 10:44 AM EDT RP Dictated By: Fidelina Brandon DO Signed By: <Electron ically signed by Fidelina Brandon DO in OV> 12/02/24 1044 DD/ 0944 TD/TT: 12/02/24 1022 Crna: Pathology (Not yet reviewed by provider) Interpretation: Performing Lab:[facility], [address] [place] [id number] Notes/Report: Name: Batsheva Greenberg Shakir Lopez e/Sex: 64/F : 1960 Unit#: [id number] Attend Dr: Rodger Doe MD Re12/12/24 Status : DEP REF Location: .MAMMO Disch: SPEC : [id number] RECD : 12/12/24-1011 STATUS: AMBROCIO BETANCOURT NUM: [id number] FANY: 12/12/[address] [facility] [address]: Fidelina Brandon DO ENTERED: 12/12/24-10 15 SP TYPE: Surgical OTHR DR: Humberto Roca MD,Rodger Arriaga MD ORDERED: HE Stain/4, Gross Micro L4/2, Cytokeratin/2, ER/2, MS/2, IHC/2, Add. immunos/6, IHC ER/MS/Her2N/8, E -cadherin/2, Ki-67/2, p63/2, SMM/2, TYR0CWY/2 COMMENTS: Part A: As per the specimen requisition slip the specimen is collected at 0913 and placed in formalin at 0922. Part B: As per the s pecimen requisition slip the specimen is collected at 0913 and placed in formalin at 0924. Addendum Addendum 1 Entered: 12/31/24 Proliferation index (A and B): Low (10% of tumor cells with Ki-67 immunostain). No change is made to the diagnoses. Addendum Signed ____ __(signature on file) Bry Charles MD 12/31/24908 Diagnosis A. Breast, left mass site A, biopsy: - Invasive carcinoma with ductal and lobular features, MSBR grade 2. - Usual ductal hyper plasia and small intraductal papilloma. B. Breast, left mass site B, biopsy: - Invasive carcinoma with ductal and lobular features, MSBR grade 1-2. - Lobular carcinoma in situ. Comment: Recommend r epeat studies on the excision specimen to determine extent of ductal and lobular phenotypes. Estrogen receptor (A ): Positive (100% of tumor cells; strong intensity) Progesterone recepto r (A): Insufficient tumor left in block for evaluation HER2 (A): Low (1+) Proliferation index (A): Will be addended Estrogen receptor (B ): Positive (100% of tumor cells; strong intensity) Progesterone recepto r (B): Positive (80% of tumor cells; moderate intensity) HER2 (B): Low (1+) Proliferation index (B): Will be addended CONTINUED ON NEXT PAGE Name: Batsheva Greenberg e/Sex: 64/F : 1960 Unit#: [id number] Attend Dr: Rodger Doe MD Re12/12/24 Status : DEP REF Location: HO.MAMMO Disch: SPEC : [id number] RECD : 12/12/24-1011 STATUS: AMBROCIO BETANCOURT NUM: [id number] FANY: 12/12/24-[address] [facility] [address]: Fidelina Brandon DO ENTERED: 12/12/24- 15 SP TYPE: Surgical OTHR DR: Humberto Roca MD, John J MD ORDERED: HE Stain/4, Gross Micro L4/2, Cytokeratin/2, ER/2, MS/2, IHC/2, Add. immunos/6, IHC ER/MS/Her2N/8, E -cadherin/2, Ki-67/2, p63/2, SMM/2, OFX9FKP/2 COMMENTS: Part A: As per the specimen requisition slip the specimen is collected at 0913 and placed in formalin at 0922. Part B: As per the s pecimen requisition slip the specimen is collected at 0913 and placed in formalin at 0924. Diagnosis (Continued) Breast Biopsy Data Synopsis Procedure: Core biopsy Specimen laterality: Left (two sites - A and B) Histologic type: Adolph kee and lobular features Histologic grade (No ttingham/MSBR histologic score): 2 - Glandular/tubular differentiation: Score: 3 - Nuclear pleomorphism: Score: 2 - Mitotic rate: Score: 1 Tumor size: Largest linear diameter: 5 mm Ductal carcinoma in situ: Not present (LCIS is present) Lymphovascular invas ion: Not identified Microcalcifications: Not identified Note: Some of the li sted elements may change with subsequent review of the entire lesion. Clinical History Left breast mass sit es A and B, question cancer vs. other Microscopic Description A. Sections have cor es of breast tissue infiltrated by a carcinoma comprised of cords of tumor cells, which a re small to medium size, have scant cytoplasm and polygonal nuclei with variable chromatin. By immunohistochemistry, pancytokeratin highlights the extent of tumor, which appears reacti ve with E-cadherin. Immunostains for p63 and smooth muscle myosin highlight other area s of usual ductal hyperplasia and a small intraductal papilloma (but are negative in the tumor focus). B. Sections have cor es of breast tissue infiltrated by a carcinoma with differing architecture. One ar ea has cords of tumor cells with similar appearance as that seen in part A. A separate c ore has tumor comprised of small tubules with cribriforming architecture and paula or cells which are medium in size, have moderate amphophilic cytoplasm and oval nuclei with variable chromatin, supported by p63 and smooth muscle myosin immunostains. By immunohistochemistry, E-cadherin is reactive in the tumor cells. CONTINUED ON NEXT PAGE Name: Melao,Batsheva E Ag e/Sex: 64/F : 1960 Unit#: [id number] Attend Dr: Rodger Doe MD Re12/12/24 Status : [facility]P [facility] SPEC : [id number] RECD : 12/12/24-1010 STATUS: AMBROCIO BETANCOURT NUM: [id number] FANY: 12/12/24-[address] [facility] [address]: Fidelina Brandon DO ENTERED: 12/12/24-10 15 SP TYPE: Surgical OTHR DR: Humberto Roca MD, John J MD ORDERED: HE Stain/4, Gross Micro L4/2, Cytokeratin/2, ER/2, MS/2, IHC/2, Add. immunos/6, IHC ER/MS/Her2N/8, E -cadherin/2, Ki-67/2, p63/2, SMM/2, QLH7TYM/2 COMMENTS: Part A: As per the specimen requisition slip the specimen is collected at 0913 and placed in formalin at 0922. Part B: As per the s pecimen requisition slip the specimen is collected at 0913 and placed in formalin at 0924. Microscopic Descript ion (Continued) Pancytokeratin highl ights the extent of tumor; focal in-situ carcinoma is also present, which appears reacti ve with E-cadherin. Material Received A. Left breast mass site A, ? CA vs other B. Left breast mass site B, ? CA vs other Gross Description Received in two parts. Part A: Received in formalin labeled ?left breast mass 2 o'clock site A? are five irregular shards and cylindric al threads of benavidez, white-pink and benavidez-yellow lobular fibrofatty breast tissue ranging from 0.2 to 2.0 cm in greatest dimension, submitted in toto in a cassette labeled A. Part B: Received in formalin labeled ?left breast mass 2 o'clock site B are five irregular shards and cylindric al threads of benavidez, white-pink and red-maroon fibrofatty breast tissue and blood ranging fr om 0.2 to 1.1 cm in greatest dimension, submitted in toto in a cassette labeled B. CEDS Formalin-fixed paraf fin-embedded tissue. Time tissue removed from patient: 912 Time tissue placed i n fixative: 921 and 923 Duration of fixation : between 6 and 24 hrs. Estrogen and Progest erone receptor immunohistochemistry performed in accordance with ASCO/CAP recommendations (2010). Estrogen receptor: Tamia santos SP1; Dako Envision+ Dual Link System-HRP. Progesterone recepto r: Clone [id number]; elarm Mach 4 detection system. Her-2/trudi immunohist ochemistry performed in accordance with ASCO/CAP recommendations (2007) and update (2013). Hercep Test CONTINUED ON NEXT PAGE Name: Batsheva Greenberg e/Sex: 64/F : 1960 Unit#: [id number] Attend Dr: Rodger Doe MD Re12/12/24 Status : DEP REF Location: HO.MAMMO Disch: SPEC : [id number] RECD : 12/12/24-1010 STATUS: AMBROCIO BETANCOURT NUM: [id number] FANY: 12/12/24-[address]: Fidelina Brandon DO ENTERED: 12/12/24-10 15 SP TYPE: Surgical OTHR DR: Humberto Roca MD,Rodger Arriaga MD ORDERED: HE Stain/4, Gross Micro L4/2, Cytokeratin/2, ER/2, MS/2, IHC/2, Add. immunos/6, IHC ER/MS/Her2N/8, E -cadherin/2, Ki-67/2, p63/2, SMM/2, PMO7LCK/2 COMMENTS: Part A: As per the specimen requisition slip the specimen is collected at 0913 and placed in formalin at 0922. Part B: As per the s pecimen requisition slip the specimen is collected at 0913 and placed in formalin at 0924. Gross Description (Continued) Detection system: Polymer type Scoring criteria: For ER/MS and Her-2/ trudi: All internal (if present) and external controls react appropriately. ER and MS immunostai ns are scored as Positive (> 10% of tumor cell nuclei), Low Positive (1- 10% of tumor cell nu clei) or Negative (<1% of tumor cell nuclei) with associated staining intensity designatio n. The Negative category is further delineated by the presence or absence of internal positive control tissue. The HER2 immunostain assay is resulted as Positive (3+) with i ntense, complete membranous staining of more than 10% of the carcinoma or Negative (0) rudolph esponding to negative or incomplete/weak membranous staining in <10% of cells. HER2 Low (1+) corresponding to incomplete/weak membranous staining in >10% of cells. The Equivocal (2+) d esignation reflects weak or non-uniform circumferential staining or dark (moderate) circumfer ential staining in less than 10% of the tumor cells. The Equivocal (2+) category includes a minor subset of patients that will show HER2 gene amplification, and therefore confirmato ry HER2 FISH testing will be performed on all Equivocal cases. The Ki-67 immunostain is score d, according to cut-offs established in the monarchE trial, as High (> or = 20% of tumor ce ll nuclei) or Low (< 20% of tumor cell nuclei). Tumor cell nuclear staining intensity o f 1+ or greater is positive. New AC, Luisito ME, et al. Human Epidermal Growth Factor Receptor 2 Testing in Breast Cancer: ASCO/CAP Cli nical Practice Guideline Focus Update. Arch of Pathol Lab Med, 142, 2018: 5889-7828. Verito KH, Luisito ME, et al. Estrogen and Progesterone Receptor Testing in Breast Cancer: ASCO/CAP Guideline U pdate. Arch of Pathol Lab Med, 144 2020: 545-563. Pari N, Monroe P , et al. Adjuvant abemaciclib combined with endocrine therapy for high- risk early breast ca ncer: updated efficacy and Ki-67 analysis from the [facility] study. Shantelle Oncol. 2020;32(12):7377-1770. This case was review ed intradepartmentally; results were communicated to Drs. Doe and Aleksandr on 12/16/2024. CONTINUED ON NEXT PAGE Name: Batsheva Greenberg e/Sex: 64/F : 1960 [id number]#: [id number] Attend Dr: Rodger Doe MD Re12/12/24 Status : DEP REF Location: [facility] [facility] Dis[facility] SPEC : [id number] REC STATUS: AMBROCIO BETANCOURT NUM: [id number] FANY: 12/12/[address]: Fidelina Brandon DO ENTERED: 12/12/24- 15 SP TYPE: Surgical OTHR DR: Humberto Roca MD, John J MD ORDERED: HE Stain/4, Gross Micro L4/2, Cytokeratin/2, ER/2, MS/2, IHC/2, Add. immunos/6, IHC ER/MS/Her2N/8, E -cadherin/2, Ki-67/2, p63/2, SMM/2, WFM7BWL/2 COMMENTS: Part A: As per the specimen requisition slip the specimen is collected at 0913 and placed in formalin at 0922. Part B: As per the s pecimen requisition slip the specimen is collected at 0913 and placed in formalin at 0924. Gross Description (Continued) Special studies orde red and performed: Immunostains for E-cadherin, pancytokeratin, p63, smooth muscle myosin , ER, MS, HER2 and Ki 67 (A and B) IHC S/NG Disclaimer NOTE: Unless otherwi se stated, all tissue is formalin-fixed and paraffin-embedded. Some or all of the immunohis tochemical tests reported herein may have been developed and their performance characte ristics determined by [facility]. They have not been cleared or appr josefa by the U.S. Food and Drug Administration (FDA). However, the FDA has determined that such clearance or approval is not necessary. This laboratory is certified under the Clinical Laboratory Improvement Amendments of 1988 (CLIA) as qualified to perform high comp lexity clinical laboratory testing. Copies To: Humberto Roca MD [address] [facility], [address] [place] [address] Rodger Doe MD [facility] [address] [place] [address] Fidelina Brandon DO [address] [place] [address] Signed (si gnature on file) Bry Charles MD 12/16/24 1638 END OF REPORT MM tomosynthesis diagnostic LT Reviewed date:12/22/2024 08:09:10 PM Interpretation: Performing Lab: Notes/Report: [facility]'[address] [place], [place] [address] Mammography Report Signed with Thony Patient: Batsheva Greenberg MR#: [id number] : 1960 Acct:[id number] Age/Sex: 64 / F ADM Date: 12/12/24 Loc: HO.MAMMO Attending Dr: Rodger Doe MD Ordering Physician: Rodger Doe MD Results: Date of Service: 12/12/24 Follow Up: Procedure(s): MM tomosynthesis diagnostic LT Accession Number(s): [id number] cc: Humberto Roca MD; Rodger Doe MD ADDENDUM ADDENDUM #1 ADDENDUM: Slight a: Left breast mass ultrasound guided core needle biopsy: Invasive carcinoma with ductal and lobular features and small intraductal papilloma. These findings are malignant and intraductal papilloma is high risk and concordant. 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 Results are malignant and concordant for both sites. The patient is under the care of a breast surgeon Dr. Rodger Siddiqui for excision and further management Electronically signed by: Fidelina Brandon DO 12/18/2024 01:47 PM EDT Addendum Dictated By: Fidelina Brandon DO Addendum Signed By: <Electronically signed by Fidelina Brandon DO in OV> 12/18/24 1347 Addendum Cosigned By: DD/ TD/TT: 12/12/24 PROCEDURE: ULTRASOUND-GUIDED LEFT BREAST BIOPSY CLINICAL INFORMATION: 2 solid irregular masses in the left breast at 2:00 4 cm from the nipple here for ultrasound-guided core needle biopsy. COMPARISON: Priors on PACS. TECHNIQUE: The details of the procedure, as well as the risks, benefits, and alternatives to the procedure were explained to the patient in detail and all of her questions were answered, after which, written informed consent was obtained. PROCEDURE: Prior to the procedure, sonography revealed Two solid irregular masses at 2:00 4 cm from the nipple in the left breast. A time-out was performed, the lesions intended for biopsy was targeted and the skin of the left breast was then prepped and draped in the usual sterile fashion. Site A: Using sonographic guidance, sterile technique, and 1% lidocaine without epinephrine for local anesthesia, a total of 4 cores were obtained through the targeted area with a 14-gauge biopsy device. At the completion of tissue sampling, a single coil metallic clip was deposited at the biopsy site. Site 8B: Using sonographic guidance, sterile technique, and 1% lidocaine without epinephrine for local anesthesia, a total of 4 cores were obtained through the targeted area with a 14-gauge biopsy device. At the completion of tissue sampling, a single butterfly metallic clip was deposited at the biopsy site. An appropriate sample was obtained. The postprocedure 2-view direct digital mammogram reveals satisfactory positioning of the biopsy clips. The patient tolerated the procedure well and, after assuring adequate hemostasis, was discharged in good condition after reviewing postbiopsy breast care instructions. Final pathology results are pending. MM/MM tomosynthesis diagnostic LT IMPRESSION: 1. Uncomplicated sonographically-guided core biopsy of the left breast. The 2-view direct digital postprocedure mammogram reveals satisfactory positioning of the biopsy clips. 2. Final pathology results are pending. A separate report with final recommendations will be issued once these results are made available. Electronically signed by: Fidelina Brandon DO 12/12/2024 11:51 AM EDT Dictated By: Fidelina Brandon DO Signed By: <Electronically signed by Fidelina Brandon DO in OV> 12/12/24 1151 DD/ 4 TD/TT: 12/12/24929 Crna: [facility] [address] [place] [address] [place] [address] Mammography Report Signed with Addenda Patient: Batsheva Greenberg MR#: [id number] : 1960 Acct:[id number] Age/Sex: 64 / F ADM Date: 12/12/24 Loc: HO.MAMMO Attending Dr: Rodger Doe MD Ordering Physician: Rodger Doe MD Results: Date of Service: Follow Up: Procedure(s): MM devon osynthesis diagnostic LT Accession Number(s): [id number] cc: Humberto Roca MD; Rodger Doe MD ADDENDUM ADDENDUM #1 ADDENDUM: Slight a: Left breas t mass ultrasound guided core needle biopsy: Invasive carcinoma w ith ductal and lobular features and small intraductal papilloma. These findings are m alignant and intraductal papilloma is high risk and concordant. Site B left breast m ass ultrasound guided core needle biopsy: Invasive carcinoma w ith ductal and lobular features and lobular carcinoma in situ. Results are malignan t and concordant for both sites. The patient is under the care of a breast surgeon Dr. Rodger Siddiqui for excision and further management Electronically kodi d by: Fidelina Brandon DO 12/18/2024 01:47 PM EDT Addendum Dictated By : Fidelina Brandon DO Addendum Signed By: <Electronically signed by Fidelina Brandon DO in OV> 12/18/24 1347 Addendum Cosigned By: DD/ TD/TT: 12/12/24 PROCEDURE: ULTRASOUND-GUIDED LE FT BREAST BIOPSY CLINICAL INFORMATION: 2 solid irregular ma sses in the left breast at 2:00 4 cm from the nipple here for ultr asound-guided core needle biopsy. COMPARISON: Priors on PACS. TECHNIQUE: The details of the p rocedure, as well as the risks, benefits, and alternatives to the procedure were explained to the patient in detail and all of her quest ions were answered, after which, written informed consent was obtained. PROCEDURE: Prior to the procedu re, sonography revealed Two solid irregular masses at 2:00 4 cm from th e nipple in the left breast. A time-out was performed, the lesio ns intended for biopsy was targeted and the skin of the left breast was then prepped and draped in the usual sterile fashion. Site A: Using sonographic gu idance, sterile technique, and 1% lidocaine without epinephrine for loca l anesthesia, a total of 4 cores were obtained through the targeted area with a 14-gauge biopsy device. At the completion of tissue sampling, a single coil metallic clip was deposited at the biopsy site. Site 8B: Using sonographic gu idance, sterile technique, and 1% lidocaine without epinephrine for loca l anesthesia, a total of 4 cores were obtained through the targeted area with a 14-gauge biopsy device. At the completion of tissue sampling, a single butterfly metallic clip was deposited at the biopsy site. An appropriate sampl e was obtained. The postprocedure 2- view direct digital mammogram reveals satisfactory positioning of the biopsy clips. The patient tolerate d the procedure well and, after assuring adequate hemostasis, was disc harged in good condition after reviewing postbiopsy breast care instruct ions. Final pathology results are pending. M M/MM tomosynthesis diagnostic LT IMPRESSION: 1. Uncomplicated sonographically-guided core biopsy of the left breast. The 2-view direct di gital postprocedure mammogram reveals satisfactory positioning of the biopsy clips. 2. Final pathology r esults are pending. A separate report with final recommendations will be issued once these results are made available. Electronically kodi d by: Fidelina Brandon DO 12/12/2024 11:51 AM EDT Dictated By: Fidelina Brandon DO Signed By: <Electron ically signed by Fidelina Brandon DO in OV> 12/12/24 1151 DD/ 0905 TD/TT: 12/12/24 09 Crna: US breast ndl core bio ea ad d Reviewed date:12/22/2024 08:09:10 PM Interpretation: Performing Lab: Notes/Report: [facility]'s [address] [place] [address] Ultrasound Report Signed with Thony Patient: Batsheva Greenberg MR#: [id number] : 1960 Acct:[id number] Age/Sex: 64 / F ADM Date: 12/12/24 Loc: MAMMNasir Attending Dr: Rodger Doe MD Ordering Physician: Rodger Doe MD Date of Service: 12/12/24 Procedure(s): US breast ndl core bio ea add Accession Number(s): [id number] cc: Humberto Roca MD; Rodger Doe MD ADDENDUM ADDENDUM #1 ADDENDUM: Slight a: Left breast mass ultrasound guided core needle biopsy: Invasive carcinoma with ductal and lobular features and small intraductal papilloma. These findings are malignant and intraductal papilloma is high risk and concordant. 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 Results are malignant and concordant for both sites. The patient is under the care of a breast surgeon Dr. Rodgre Siddiqui for excision and further management Electronically signed by: Fidelina Brandon DO 12/18/2024 01:47 PM EDT Addendum Dictated By: Fidelina Brandon DO Addendum Signed By: <Electronically signed by Fidelina Brandon DO in OV> 12/18/24 1347 Addendum Cosigned By: DD/ TD/TT: 12/12/24 PROCEDURE: ULTRASOUND-GUIDED LEFT BREAST BIOPSY CLINICAL INFORMATION: 2 solid irregular masses in the left breast at 2:00 4 cm from the nipple here for ultrasound-guided core needle biopsy. COMPARISON: Priors on PACS. TECHNIQUE: The details of the procedure, as well as the risks, benefits, and alternatives to the procedure were explained to the patient in detail and all of her questions were answered, after which, written informed consent was obtained. PROCEDURE: Prior to the procedure, sonography revealed Two solid irregular masses at 2:00 4 cm from the nipple in the left breast. A time-out was performed, the lesions intended for biopsy was targeted and the skin of the left breast was then prepped and draped in the usual sterile fashion. Site A: Using sonographic guidance, sterile technique, and 1% lidocaine without epinephrine for local anesthesia, a total of 4 cores were obtained through the targeted area with a 14-gauge biopsy device. At the completion of tissue sampling, a single coil metallic clip was deposited at the biopsy site. Site 8B: Using sonographic guidance, sterile technique, and 1% lidocaine without epinephrine for local anesthesia, a total of 4 cores were obtained through the targeted area with a 14-gauge biopsy device. At the completion of tissue sampling, a single butterfly metallic clip was deposited at the biopsy site. An appropriate sample was obtained. The postprocedure 2-view direct digital mammogram reveals satisfactory positioning of the biopsy clips. The patient tolerated the procedure well and, after assuring adequate hemostasis, was discharged in good condition after reviewing postbiopsy breast care instructions. Final pathology results are pending. US/US breast ndl core bio ea add IMPRESSION: 1. Uncomplicated sonographically-guided core biopsy of the left breast. The 2-view direct digital postprocedure mammogram reveals satisfactory positioning of the biopsy clips. 2. Final pathology results are pending. A separate report with final recommendations will be issued once these results are made available. Electronically signed by: Fidelina Brandon DO 12/12/2024 11:51 AM EDT Dictated By: Fidelina Brandon DO Signed By: <Electronically signed by Fidelina Brandon DO in OV> 12/12/24 1151 DD/ 0905 TD/TT: 12/12/24 09 Crna: [facility] [address] [place] [address] [place] [address] Ultrasound Report Signed with Addenda Patient: Batsheva Greenberg MR#: [id number] : 1960 Acct:[id number] Age/Sex: 64 / F ADM Date: 12/12/24 Loc: HO.MAMMO Attending Dr: Rodger Doe MD Ordering Physician: Rodger Doe MD Date of Service: 12/12/24 Procedure(s): US ovidio ast ndl core bio ea add Accession Number(s): [id number] cc: Humberto Roca MD; Rodger Doe MD ADDENDUM ADDENDUM #1 ADDENDUM: Slight a: Left breas t mass ultrasound guided core needle biopsy: Invasive carcinoma w ith ductal and lobular features and small intraductal papilloma. These findings are m alignant and intraductal papilloma is high risk and concordant. Site B left breast m ass ultrasound guided core needle biopsy: Invasive carcinoma w ith ductal and lobular features and lobular carcinoma in situ. Results are malignan t and concordant for both sites. The patient is under the care of a breast surgeon Dr. Rodger Siddiqui for excision and further management Electronically kodi d by: Fidelina Brandon DO 12/18/2024 01:47 PM EDT Addendum Dictated By : Fidelina Brandon DO Addendum Signed By: <Electronically signed by Fidelina Brandon DO in OV> 12/18/24 1347 Addendum Cosigned By: DD/ TD/TT: 12/12/24 PROCEDURE: ULTRASOUND-GUIDED LE FT BREAST BIOPSY CLINICAL INFORMATION: 2 solid irregular ma sses in the left breast at 2:00 4 cm from the nipple here for ultr asound-guided core needle biopsy. COMPARISON: Priors on PACS. TECHNIQUE: The details of the p rocedure, as well as the risks, benefits, and alternatives to the procedure were explained to the patient in detail and all of her quest ions were answered, after which, written informed consent was obtained. PROCEDURE: Prior to the procedu re, sonography revealed Two solid irregular masses at 2:00 4 cm from th e nipple in the left breast. A time-out was performed, the lesio ns intended for biopsy was targeted and the skin of the left breast was then prepped and draped in the usual sterile fashion. Site A: Using sonographic gu idance, sterile technique, and 1% lidocaine without epinephrine for loca l anesthesia, a total of 4 cores were obtained through the targeted area with a 14-gauge biopsy device. At the completion of tissue sampling, a single coil metallic clip was deposited at the biopsy site. Site 8B: Using sonographic gu idance, sterile technique, and 1% lidocaine without epinephrine for loca l anesthesia, a total of 4 cores were obtained through the targeted area with a 14-gauge biopsy device. At the completion of tissue sampling, a single butterfly metallic clip was deposited at the biopsy site. An appropriate sampl e was obtained. The postprocedure 2- view direct digital mammogram reveals satisfactory positioning of the biopsy clips. The patient tolerate d the procedure well and, after assuring adequate hemostasis, was disc harged in good condition after reviewing postbiopsy breast care instruct ions. Final pathology results are pending. [facility]/ breast ndl core bio ea add IMPRESSION: 1. Uncomplicated sonographically-guided core biopsy of the left breast. The 2-view direct di gital postprocedure mammogram reveals satisfactory positioning of the biopsy clips. 2. Final pathology r esults are pending. A separate report with final recommendations will be issued once these results are made available. Electronically kodi d by: Fidelina Brandon DO 12/12/2024 11:51 AM EDT Dictated By: Fidelina Brandon DO Signed By: <Modesto lima signed by Fidelina Brandon DO in OV> 12/12/24 1151 DD/ 0905 TD/TT: 12/12/24 0930 Crna: US breast ndl core biopsy LT Reviewed date:12/22/2024 08:09:10 PM Interpretation: Performing Lab: Notes/Report: [facility] [address] [place] [address] Ultrasound Report Signed with Addenda Patient: Batsheva Greenberg MR#: [id number] : 1960 Acct:[id number] Age/Sex: 64 / F ADM Date: 12/12/24 Loc: BRANDI Attending Dr: Rodger Doe MD Ordering Physician: Rodger Doe MD Date of Service: 12/12/24 Procedure(s): US breast ndl core biopsy LT Accession Number(s): [id number] cc: Humberto Roca MD; Rodger Doe MD ADDENDUM ADDENDUM #1 ADDENDUM: Slight a: Left breast mass ultrasound guided core needle biopsy: Invasive carcinoma with ductal and lobular features and small intraductal papilloma. These findings are malignant and intraductal papilloma is high risk and concordant. 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 Results are malignant and concordant for both sites. The patient is under the care of a breast surgeon Dr. Rodger Siddiqui for excision and further management Electronically signed by: Fidelina Brandon DO 12/18/2024 01:47 PM EDT Addendum Dictated By: Fidelina Brandon DO Addendum Signed By: <Electronically signed by Fidelina Brandon DO in OV> 12/18/24 1347 Addendum Cosigned By: DD/ TD/TT: 12/12/24 PROCEDURE: ULTRASOUND-GUIDED LEFT BREAST BIOPSY CLINICAL INFORMATION: 2 solid irregular masses in the left breast at 2:00 4 cm from the nipple here for ultrasound-guided core needle biopsy. COMPARISON: Priors on PACS. TECHNIQUE: The details of the procedure, as well as the risks, benefits, and alternatives to the procedure were explained to the patient in detail and all of her questions were answered, after which, written informed consent was obtained. PROCEDURE: Prior to the procedure, sonography revealed Two solid irregular masses at 2:00 4 cm from the nipple in the left breast. A time-out was performed, the lesions intended for biopsy was targeted and the skin of the left breast was then prepped and draped in the usual sterile fashion. Site A: Using sonographic guidance, sterile technique, and 1% lidocaine without epinephrine for local anesthesia, a total of 4 cores were obtained through the targeted area with a 14-gauge biopsy device. At the completion of tissue sampling, a single coil metallic clip was deposited at the biopsy site. Site 8B: Using sonographic guidance, sterile technique, and 1% lidocaine without epinephrine for local anesthesia, a total of 4 cores were obtained through the targeted area with a 14-gauge biopsy device. At the completion of tissue sampling, a single butterfly metallic clip was deposited at the biopsy site. An appropriate sample was obtained. The postprocedure 2-view direct digital mammogram reveals satisfactory positioning of the biopsy clips. The patient tolerated the procedure well and, after assuring adequate hemostasis, was discharged in good condition after reviewing postbiopsy breast care instructions. Final pathology results are pending. US/US breast ndl core biopsy LT IMPRESSION: 1. Uncomplicated sonographically-guided core biopsy of the left breast. The 2-view direct digital postprocedure mammogram reveals satisfactory positioning of the biopsy clips. 2. Final pathology results are pending. A separate report with final recommendations will be issued once these results are made available. Electronically signed by: Fidelina Brandon DO 12/12/2024 11:51 AM EDT Dictated By: Fidelina Brandon DO Signed By: <Electronically signed by Fidelina Brandon DO in OV> 12/12/24 1151 DD/ 09 TD/TT: 12/12/24929 Crna: [facility] [address] [place] [address] Ultrasound Report Signed with Addenda Patient: Batsheva Greenberg MR#: [id number] : 1960 Acct:[id number] Age/Sex: 64 / F ADM Date: 12/12/24 Loc: HO.MAMMO Attending Dr: Rodger Doe MD Ordering Physician: Rodger Doe MD Date of Service: 12/12/24 Procedure(s): US ovidio ast ndl core biopsy LT Accession Number(s): [id number] cc: Humberto Roca MD; Rodger Doe MD ADDENDUM ADDENDUM #1 ADDENDUM: Slight a: Left breas t mass ultrasound guided core needle biopsy: Invasive carcinoma w ith ductal and lobular features and small intraductal papilloma. These findings are m alignant and intraductal papilloma is high risk and concordant. Site B left breast m ass ultrasound guided core needle biopsy: Invasive carcinoma w ith ductal and lobular features and lobular carcinoma in situ. Results are malignan t and concordant for both sites. The patient is under the care of a breast surgeon Dr. Rodger Siddiqui for excision and further management Electronically kodi d by: Fidelina Brandon DO 12/18/2024 01:47 PM EDT RP Addendum Dictated By : Fidelina Brandon DO Addendum Signed By: <Electronically signed by Fidelina Brandon DO in OV> 12/18/24 1347 Addendum Cosigned By: DD/ TD/TT: 12/12/24 PROCEDURE: ULTRASOUND-GUIDED LE FT BREAST BIOPSY CLINICAL INFORMATION: 2 solid irregular ma sses in the left breast at 2:00 4 cm from the nipple here for ultr asound-guided core needle biopsy. COMPARISON: Priors on PACS. TECHNIQUE: The details of the p rocedure, as well as the risks, benefits, and alternatives to the procedure were explained to the patient in detail and all of her quest ions were answered, after which, written informed consent was obtained. PROCEDURE: Prior to the procedu re, sonography revealed Two solid irregular masses at 2:00 4 cm from th e nipple in the left breast. A time-out was performed, the lesio ns intended for biopsy was targeted and the skin of the left breast was then prepped and draped in the usual sterile fashion. Site A: Using sonographic gu idance, sterile technique, and 1% lidocaine without epinephrine for loca l anesthesia, a total of 4 cores were obtained through the targeted area with a 14-gauge biopsy device. At the completion of tissue sampling, a single coil metallic clip was deposited at the biopsy site. Site 8B: Using sonographic gu idance, sterile technique, and 1% lidocaine without epinephrine for loca l anesthesia, a total of 4 cores were obtained through the targeted area with a 14-gauge biopsy device. At the completion of tissue sampling, a single butterfly metallic clip was deposited at the biopsy site. An appropriate sampl e was obtained. The postprocedure 2- view direct digital mammogram reveals satisfactory positioning of the biopsy clips. The patient tolerate d the procedure well and, after assuring adequate hemostasis, was disc harged in good condition after reviewing postbiopsy breast care instruct ions. Final pathology results are pending. U S/US breast ndl core biopsy LT IMPRESSION: 1. Uncomplicated sonographically-guided core biopsy of the left breast. The 2-view direct di gital postprocedure mammogram reveals satisfactory positioning of the biopsy clips. 2. Final pathology r esults are pending. A separate report with final recommendations will be issued once these results are made available. Electronically kodi d by: Fidelina Brandon DO 12/12/2024 11:51 AM EDT RP Dictated By: Fidelina Brandon DO Signed By: <Electron ically signed by Fidelina Brandon DO in OV> 12/12/24 1151 DD/ 4 TD/TT: 12/12/24929 Crna: MR breast BI wo/w con Reviewed date:12/30/2024 04:08:59 PM Interpretation: Performing Lab: Notes/Report: [place] [address] Magnetic Resonance Report Signed Patient: Batsheva Greenberg MR#: [id number] : 1960 Acct:[id number] Age/Sex: 64 / F ADM Date: 12/25/24 Loc: .MRI Attending Dr: Rodger Doe MD Ordering Physician: Rodger Doe MD Date of Service: 12/25/24 Procedure(s): MR breast BI wo/w con Accession Number(s): [id number] cc: Humberto Roca MD; Rodger Doe MD; Physician,Unknown EXAMINATION: MR BREAST WITHOUT AND WITH CONTRAST, BILATERAL CLINICAL INFORMATION: Biopsy-proven invasive ductal carcinoma 2 biopsy sites in the upper outer left breast. History of right breast cancer status post mastectomy 15 years ago. COMPARISON: Comparison is made with relevant prior imaging. TECHNIQUE: MR imaging of the breast was performed using T1, T2 and fat saturated techniques. Dynamic multiphase imaging was also performed after the administration of intravenous gadolinium contrast agent. Computer generated 3D reconstruction and enhancement kinetic analysis was ulitized by the radiologist in the interpretation of this examination. FINDINGS: Breast composition: Heterogeneous fibroglandular breast tissue Background parenchymal enhancement: Moderate LEFT BREAST: There are multiple solid irregular enhancing masses in the upper central upper outer left breast anterior and middle depth with some surrounding satellite lesions and suspicious nonmass enhancement. The overall area of multiple irregular enhancing masses solid masses, satellite lesions and background suspicious non-mass enhancement measures 37 mm anterior to posterior by 27 mm transverse by 66 mm superior to inferior. Biopsy marker clips in the upper outer breast into a the solid irregular masses, the extent of distance between the marker clips does not define the entire extent of suspicious enhancement. Normal-appearing intramammary lymph node upper inner breast far posterior depth series 4 image 115/172. Multiple prominent left axillary lymph nodes. RIGHT BREAST: Post mastectomy changes. No suspicious enhancing masses or areas of non mass enhancement. No axillary or internal mammary adenopathy. Limited views of the chest and abdomen are unremarkable. MR/MR breast BI wo/w con IMPRESSION: Left: Left upper outer quadrant biopsy-proven malignancy in 2 sites with extensive surrounding suspicious masses and nonmass enhancement. The entire area of suspicious enhancing masses, satellite lesions and background nonmass enhancement encompasses up to 66 mm superior to inferior by 37 mm anterior to posterior by 27 mm transverse approximately. If breast conservation therapy is being considered additional biopsies could be performed however suspicious satellite and vague nonmass enhancement may be difficult to biopsy on entire extent. The patient is under the care of a breast surgeon for excision and further management of known left breast biopsy-proven malignancy. 2. Multiple prominent left axillary lymph nodes. Recommend left ultrasound of the axilla at this time. Right: Status post mastectomy changes. No suspicious areas of enhancement. Benign. ASSESSMENT: LEFT BREAST: BI-RADS 6 biopsy-proven malignancy. RIGHT BREAST: BI-RADS 2 benign. Status post mastectomy changes. RECOMMENDATIONS: Biopsy-proven malignancy in the upper outer left breast. The patient is under the care of a breast surgeon for excision and further management. Multiple prominent left axillary lymph nodes. Recommend left axillary ultrasound evaluation at this time. Above findings discussed with patients breast surgeon Dr Doe. Electronically signed by: Fidelina Brandon DO 12/26/2024 03:08 PM EDT Dictated By: Fidelina Brandon DO Signed By: <Electronically signed by Fidelina Brandon DO in OV> 12/26/24 1508 DD/ 1501 TD/TT: 12/25/24 1559 Crna: [address] [address] Magnetic Resonance Report Signed Patient: Batsheva Greenberg MR#: [id number] : 1960 Acct:[id number] Age/Sex: 64 / F ADM Date: 12/25/24 Loc: HO.MRI Attending Dr: Rodger Doe MD Ordering Physician: Rodger Doe MD Date of Service: 12/25/24 Procedure(s): MR nolan ast BI wo/w con Accession Number(s): [id number] cc: Humberto Roca MD; Rodger Doe MD; Physician,Unknown EXAMINATION: MR BREAST WITHOUT AN D WITH CONTRAST, BILATERAL CLINICAL INFORMATION: Biopsy-proven invasi ve ductal carcinoma 2 biopsy sites in the upper outer left breast. History of right ovidio ast cancer status post mastectomy 15 years ago. COMPARISON: Comparison is made w ith relevant prior imaging. TECHNIQUE: MR imaging of the br east was performed using T1, T2 and fat saturated techniques. Dynamic multiphase i maging was also performed after the administration of intravenous gadol inium contrast agent. Computer generated 3 D reconstruction and enhancement kinetic analysis was ulitized by the radiologist in the interpretation of this examination. FINDINGS: Breast composition: Heterogeneous fibroglandular breast tissue Background parenchym al enhancement: Moderate LEFT BREAST: There are multiple s olid irregular enhancing masses in the upper central upper outer left breast anterior and middle depth with some surrounding satellit e lesions and suspicious nonmass enhancement. The overall area of multiple irregular enhancing masses solid masses, satellite lesions an d background suspicious non-mass enhancement measures 37 mm anter ior to posterior by 27 mm transverse by 66 mm superior to inferior. Biopsy marker clips in the upper outer breast into a the solid irregular masses, th e extent of distance between the marker clips does not define the entir e extent of suspicious enhancement. Normal-appearing int ramammary lymph node upper inner breast far posterior depth seri es 4 image 115/172. Multiple prominent l eft axillary lymph nodes. RIGHT BREAST: Post mastectomy changes. No suspicious enhanc ing masses or areas of non mass enhancement. No axillary or inter nal mammary adenopathy. Limited views of the chest and abdomen are unremarkable. M R/MR breast BI wo/w con IMPRESSION: Left: Left upper outer clara drant biopsy-proven malignancy in 2 sites with extensive surroundin g suspicious masses and nonmass enhancement. The entire area of s uspicious enhancing masses, satellite lesions and background nonmass e nhancement encompasses up to 66 mm superior to inferior by 37 mm an terior to posterior by 27 mm transverse approximately. If breast conservati on therapy is being considered additional biopsies could be performed h owever suspicious satellite and vague nonmass enhancement may be d ifficult to biopsy on entire extent. The patient is under the care of a breast surgeon for excision and further management o f known left breast biopsy-proven malignancy. 2. Multiple prominent l eft axillary lymph nodes. Recommend left ultrasound of the axilla at this time. Right: Status post mastecto my changes. No suspicious areas of enhancement. Benign. ASSESSMENT: LEFT BREAST: BI-RADS 6 biopsy-proven malignancy. RIGHT BREAST: BI-RAD S 2 benign. Status post mastectomy changes. RECOMMENDATIONS: Biopsy-proven malign ag in the upper outer left breast. The patient is under the care of a breast surgeon for excision and further management. Multiple prominent l eft axillary lymph nodes. Recommend left axillary ultrasound evaluatio n at this time. Above findings discu ssed with patients breast surgeon Dr Doe. Electronically kodi d by: Fidelina Brandon DO 12/26/2024 03:08 PM EDT Dictated By: Fidelina Brandon DO Signed By: <Electro nically signed by Fidelina Brandon DO in OV> 12/26/24 1508 DD/ 1505 TD/TT: 12/25/24 1559 Crna: Reason For Referral No Information Medications Medication [...] Problem Status W/U Status Risk Notes Problem 3276385 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 She has a plan for prevention of relapse in times of stress. Problem 227263283 Overweight (E66.3) Active confirmed She has lost 9 more pounds. She is no longer obese. We discussed her weight loss strategy today. We reviewed her diet and nutrition today. Problem 925269605 Malignant neoplasm of upper-outer quadrant of right female breast (C50.411) Active confirmed There is no sign of a new primary are of returns today. Problem 979273404 Use of tamoxifen (Nolvadex) (Z79.810) Active confirmed She reports being up-to-date with [employer] and has had no vaginal bleeding. Problem 832545924 History of appendectomy (Z90.49) Active confirmed Problem 299982576 Status post righ t breast reconstruction (Z98.89) [...] Date Provider Diagnosis Humberto Roca III, MD [address] [place] [address] [place] [address] 02/21/2024 Humberto Roca Former smoker Z87.89 1 ; Malignant neoplasm of upper-outer quadrant of right female breast C50.411 ; Overweight E66.3 ; Status post right breast reconstruction Z98.89 and Use of tamoxifen (Nolvadex) Z79.810 Humberto Roca III, MD [address] [place] [address] [place] [address] 12/18/2024 Humberto Roca III, MD [address] [place] [address] [place] [address] 12/31/2024 Humberto Roca Assessments Encounter Date Diagnosis (ICD Code) Assessment [...] - Z79.810) She reports being up-to-date with [employer] and has had no vaginal bleeding. Plan Of Treatment Pending Test Test Name Order Date BONE DENSITY DEXA 06/05/2019 MAMMOGRAM DIGITAL SCREEN LEFT UNI 2019 MAMMOGRAM DIGITAL SCREEN LEFT UNI 2022 Pathology 12/12/2024 Next Appt Details Provider Name:Humberto Chanelle, 01/14/2025 02:30:00 PM, [address] [place] [address] [address], [place], [phone], Provider Name:Humberto Roca, 02/20/2025 10:30:00 AM, [address] [place] [address] [address], [place], [address], Insurance Providers Payer Name Payer Address Payer Phone Subscriber Number Group Number Insured Name Patient Relationship to Insured Coverage Start Date Coverage End Date [facility] [address] [address] [place] [address] [id number] Batsheva Greenberg Self - patient is the insured Medical (General) History Medical History History ICD Code [id number] breast cancer last mammogram 05/2015 @ [facility] [place] quintero stop 04/2019 Surgical History Surgery Date(Month/Year) full dental extractions 2019 left breast reduction right breast reconstruction appendectomy 2 caesarean sections
--- NOTE | 2025-01-07 10:58 | HO.ANESPROP2 ---
Documented by User: Jade León NP 01/07/25 10:59 HPI - Anesthesia Eval Consult details Narrative: 64yo F for Left Mastectomy Modified Radical No PAT eval PMFSH Active Problems Active Problems: All Active Problems Primary invasive malignant neoplasm of left female breast (Acute) Abnormal ultrasound of breast (Acute) Abnormal mammogram of left breast (Acute) Neuralgia (Acute) Preprocedural examination (Acute) Invasive lobular carcinoma of breast, stage 3 (Acute) Past Medical History Medical History HTN (hypertension) Invasive lobular carcinoma of breast, stage 3 Family History Family History Mother HTN (hypertension) Surgical History Surgical History History of 2 sections History of appendectomy History of mastectomy History of right breast biopsy Social History Social History Household Members: Spouse Are you a primary primary care nurse to a significant other at home: No Do you presently have visiting nurse or other home services: No Alcohol intake: current Alcohol intake frequency: holidays/special occasions only Patient Tobacco Use Status: Former Tobacco user Tobacco use type: Cigarette Use of substances other than those prescribed or required for medical reasons: No Have you been hit, kicked, punched, or otherwise hurt by someone within the past year? If so, by whom?: No Are you DNR?: No Advance Directives: No Advance Directives Information Provided: Yes Patient : No Poor oral hygiene: Yes service: No Current occupational status: employed and unemployed Meds Allergies Allergy/AdvReac Type Severity Reaction Status Date / Time adhesive Allergy Unknown rash Uncoded 01/08/25 10:04 percocet Allergy Unknown nausea/vomi Uncoded 01/08/25 10:04 ting Exam Pertinent Lab Results Pertinent Lab Results: Laboratory Tests 01/06/25 12:20 WBC 7.7 Hgb 13.7 Hct 41.0 Plt Count 290 Sodium 140 Potassium 4.2 Chloride 104 Carbon Dioxide 29 BUN 13 Creatinine 0.66 Assessment and Plan Assessment Anesthesia Assessment: Chart Reviewed Documented by User: Mayra Del Cid MD 01/08/25 12:20 [facility] Past Medical History Medical History HTN (hypertension) Invasive lobular carcinoma of breast, stage 3 Family History Family History Mother HTN (hypertension) Family history of problems with anesthesia: No Surgical History Surgical History History of 2 sections History of appendectomy History of mastectomy History of right breast biopsy History of Problems with Anesthesia: No Social History Social History Household Members: Spouse Are you a primary primary care nurse to a significant other at home: No Do you presently have visiting nurse or other home services: No Alcohol intake: current Alcohol intake frequency: holidays/special occasions only Patient Tobacco Use Status: Former Tobacco user Tobacco use type: Cigarette Use of substances other than those prescribed or required for medical reasons: No Have you been hit, kicked, punched, or otherwise hurt by someone within the past year? If so, by whom?: No Are you DNR?: No Advance Directives: No Advance Directives Information Provided: Yes Patient : No Poor oral hygiene: Yes service: No Current occupational status: employed and unemployed Meds Allergies Allergy/AdvReac Type Severity Reaction Status Date / Time adhesive Allergy Unknown rash Uncoded 01/08/25 10:04 percocet Allergy Unknown nausea/vomi Uncoded 01/08/25 10:04 ting Exam Airway Mallampati Class: III TM Dist: >3cm Neck ROM: Full Heart: rrr Lungs: cta Assessment and Plan Assessment Anesthesia Assessment: Anesthesia Plan Discussed Final Anesthetic Review Family History of Problems with Anesthesia: No History of Problems with Anesthesia: No NPO: Yes ASA Class: III Final Preanesthetic Review: No Changes in Pt Med Stat, Meds/Allgs Chart Reviewed, Consent Obtained/Reviewed and Anes Risks/Benef Reviewed Patient Risk: Intermediate Procedure Risk: Intermediate Anesthetic Plan Anesthetic Plan: GA and Agree w/ Assess. and Plan Disposition: Standard PACU
[2025-01-08] VITALS (14 sets, daily range): BP systolic 129–197; BP diastolic 74–98; PULSE 72–91; RESP 14–19; TEMP 36.1–36.9; O2SAT 94–99; BMI 28.9; BMI 30.5
[2025-01-08] MEDS: Lactated Ringers 1,000 ML 100 ML IVCONT (10:36)
--- NOTE | 2025-01-08 12:10 | MHC.SHP ---
Pre-Procedural Eval Section A - 24 Hr Update-Section A only Date of Service: 01/08/25 Changes since office visit: Yes Patient answered all questions; No Cold of Flu in the past 2 weeks, No New Medical Problems and No Changes in Medication The patient has been examined within 24 hours of the surgical procedure. The History & Physical has been completed within 30 days and I have reviewed it.: No Section B - Complete if H&P > 30 days Chief Complaint: left breast invasive carcinoma Details of Present Illness: Patient met with Dr. Trinh and the decision made to proceed with a left breast modified radical mastectomy. Patient may require postoperative chemotherapy based on pathology results. Relevant Family History (Specify if Yes): No Relevant Social History: None Present Medications: see Short Stay Collaborative assessment Medical History: Significant History (Previous right breast carcinoma) History of Previous Operations: No relevant previous surgery Allergies: Allergies Allergy/AdvReac Type Severity Reaction Status Date / Time adhesive Allergy Unknown rash Uncoded 01/08/25 10:04 percocet Allergy Unknown nausea/vomi Uncoded 01/08/25 10:04 ting Review of Systems Sugical H&P ROS: Negative: Constitution, Cardiovascular, Respiratory, Neurological, Psychiatric, Hem-Onc, Allergic/Immunologic, Gastrointestinal, Genitourinary, Musculoskeletal and Integumentary Exam Surgical H&P Exam: Normal: HEENT, Normal: Heart, Normal: Lungs, Normal: Extremities, Normal: Abdomen and Normal: Skin Plan Diagnosis/Plan: Change I have reviewed the history and physical and performed a pertinent physical examination on my patient. No changes have occurred unless specified. I reviewed the procedure, risks and alternatives of a left breast modified radical mastectomy and she consents to the surgery. Time Spent With Patient Time: Total time managing care of this patient today ____ minutes.
--- NOTE | 2025-01-08 12:31 | PHA.MEDREC ---
Addendum entered by Kojo Paul, Marjorie 01/08/25 12:49: MED REC CHECKED BY [facility] Original Note: Pharmacy Consult ? Medication Reconciliation Pharmacy has reviewed the medication reconciliation done by nursing. claims match med list.
--- NOTE | 2025-01-08 14:41 | W.PM.OPN ---
Operative Note Operative Note Date of Service: 01/08/25 Narrative: Preoperative diagnosis: Left breast invasive carcinoma with lobular and ductal features Postoperative diagnosis: Same Procedure: Left breast modified radical mastectomy Surgeon: Rodger Doe MD Molded Frames Assembler: Mera Lugo PA-C; Cristopher Butt PA-C, Romeo Mccauley, MS-3 Anesthesia: General endotracheal Indications for procedure: 64-year-old female patient presenting with a prior history of right breast carcinoma status post mastectomy with reconstruction now presenting with a new breast cancer on the left side. She was diagnosed with an invasive carcinoma with ductal and lobular features, grade 1-2. MRI confirmed the known breast cancer measuring 66 x 37 x 27 mm in the central upper outer left breast. Operative findings: No obvious breast tumor at margins and no pathologically enlarged lymph nodes noted. Level 1 and 2 axillary nodes removed. Specimen: Left breast and axillary layla dissection Estimated blood loss: 25 mL Complications: None Drains: BHASKAR x2 Procedure details: The patient was brought to the OR and placed in a supine position. After administering general anesthesia a pectoralis block was applied by anesthesia. The patient's left breast was prepped with ChloraPrep and draped in a sterile fashion. A surgical time-out was called the consent confirmed. Patient received preoperative antibiotics and Venodyne boots were in place. An elliptical incision was then created to include the nipple extending from the lateral edge of sternum to the lower aspect of the axilla. Beginning in the superior flap incision was carried down into the subcutaneous tissue. Electrocautery was then used to dissect the skin flap superiorly to the lower surface of the clavicle. Inferior flap was similarly dissected down to the costal margin. Dissection was continued down to chest wall and the breast dissected from medial to lateral superior to inferior using electrocautery. Hemostasis was also assured using free ties of 3-0 Polysorb. Dissection was continued laterally into the axillary compartment. The dissection along the pectoralis major lateral surface continued to include Arnol's nodes. The edge of pectoralis minor was dissected further up to the axillary vein. The axillary vein was identified with the surrounding lymphatic tissue preserved. Level 1 and 2 axillary nodes were dissected and the long thoracic and thoracodorsal nerves identified and preserved. Superficial vessels to the axillary tissue were ligated using free ties of 2-0 silk. Once confirmation of the long thoracic and thoracodorsal nerves was established the remaining axillary tissue was excised in the specimen removed. Axilla was marked with a silk tie. Wounds were irrigated with saline solution and suctioned dry. Two Frankie-Diallo drains were placed through a stab wound and secured using a 2-0 nylon suture. One drain was placed in the inferior breast flap in the 2nd in the axilla. Both were connected to bulb suctioned. Wounds were again checked for hemostasis. Dermis was then reapproximated using interrupted 3-0 Polysorb sutures. Skin was closed using a running subcuticular 4-0 Polysorb suture. Steri-Strips, 4 x 4 gauze and Tegaderm were applied. Breast binder was also applied. The patient tolerated the procedure well. Sponge, instrument, and needle counts were reported as correct. The patient was transferred to PACU in stable condition. Breast Axillary Dissection Resection was performed within the boundaries of the axillary vein, chest wall (serratus anterior), and latissimus dorsi: Yes The long thoracic and thoracodorsal nerves were spared during dissection: Yes Attempts were made to spare the intercostobrachial nerves during dissection if possible: Yes If one or more level III nodes is/are removed, then document why: n/a Procedure performed with curative intent?: Yes General Surg. - Synoptic Notes Breast Axillary Dissection Resection was performed within the boundaries of the axillary vein, chest wall (serratus anterior), and latissimus dorsi: Yes The long thoracic and thoracodorsal nerves were spared during dissection: Yes Attempts were made to spare the intercostobrachial nerves during dissection if possible: Yes If one or more level III nodes is/are removed, then document why: n/a Procedure performed with curative intent?: Yes
[2025-01-08] MEDS: 0.9 % Sodium Chloride Flush 3 ML SYRINGE IVFLUSH ×2 (17:04→21:27)
[2025-01-08] MEDS: Dextrose 5 % and Lactated Ring 1,000 ML 125 ML IVCONT (17:04)
[2025-01-09] MEDS: Dextrose 5 % and Lactated Ring 1,000 ML 125 ML IVCONT (01:03)
[2025-01-09 04:00] VITALS: BP 139/79; PULSE 92; RESP 18; TEMP 36.8; O2SAT 99
[2025-01-09 05:50] LABS: MANUAL DIFF FLAG NO
[2025-01-09 05:55] LABS: Hematocrit 35.1 % (37.0-47.0); Hemoglobin 11.9 g/dl (12.0-16.0); Imm Gran Abs Auto 0.05 X10*3/uL (0.00-0.03); Imm Gran Pct Auto 0.4 % (0.0-0.4); Lymphocytes Absolute Auto 1.6 X10*3/uL (1.2-4.9); Mean Corpuscular HGB Conc 33.9 g/dl (31.0-35.0); Mean Corpuscular Hemoglobin 31.5 pg (27.0-33.0); Mean Corpuscular Volume 92.9 fL (80.0-98.0); NRBC Abs Auto 0.000 X10*3/uL (0.0-0.012); NRBC Pct Auto 0.0 /100WBC (0.0-0.2); Platelet Count 302 X10*3/uL (160-400); Red Blood Count 3.78 X10*6/uL (4.20-5.50); White Blood Count 12.1 X10*3/uL (4.8-10.8)
[2025-01-09 06:11] LABS: Anion Gap 13 (12-20); Blood Urea Nitrogen 9 mg/dL (9-16); Calcium 9.1 mg/dL (8.4-10.2); Carbon Dioxide 28 mmol/L (22-29); Chloride 103 mmol/L (96-108); Creatinine Clr Calc Pharmacy 85.3; Estimated Glomerular Filt Rate > 60; Potassium 4.5 mmol/L (3.3-5.1); Sodium 139 mmol/L (135-145)
--- NOTE | 2025-01-09 07:10 | P.PNGS_ITS ---
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 Today she is doing well. Her pain is an 8/10 without medication, but a 5/10 with pain management. She has not had a bowel movement yet but passed gas last night. She is tolerating solid foods without N/V. She is ambulating and has no trouble with urination. She denies chest pain, SOB, fever, or chills. 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 Today she is doing well. Her pain is an 8/10 without medication, but a 5/10 with pain management. She has not had a bowel movement yet but passed gas last night. She is tolerating solid foods without N/V. She is ambulating and has no trouble with urination. She denies chest pain, SOB, fever, or chills. pain well controlled with IV meds, but when trialing oral pain meds only, pain is worse, wants to continue IV meds for now. <Cristopher Butt PA-C - Last Filed: 01/09/25 07:52> Physical Exam 2 Vital Signs: Vital Signs: Last Vital Signs Temp 98.2 F 01/09/25 04:00 Pulse 92 01/09/25 04:00 Resp 18 01/09/25 04:00 BP 139/79 01/09/25 04:00 Pulse Ox 99 01/09/25 04:00 O2 Del Method Room Air 01/09/25 04:00 O2 Flow Rate 2 01/08/25 16:23 BMI result Body Mass Index 30.5 <Romeo Mccauley - Last Filed: 01/09/25 07:21> Chest: Other: 2x BHASKAR tube with 75 mL total output at ti me of inspection. <Romeo Mccauley - Last Filed: 01/09/25 07:21> Other: 2x BHASKAR tube with 75 mL total output at ti me of inspection. 330 total output overnight <Cristopher Butt PA-C - Last Filed: 01/09/25 07:52> Chest palpation & inspection: tenderness (to palpation of the area surrounding the breast) <Romeo Mccauley - Last Filed: 01/09/25 07:21> Skin: Other: Binder on covering dressings/incisions. No erythema outside of the binder. <Romeo Mccauley - Last Filed: 01/09/25 07:21> Objective Data Active Medications Amitriptyline HCl (Amitriptyline Hcl 50 Mg Tablet) 50 mg PO BEDTIME PRN PRN Reason: insomnia, neuropathic pain Calcium Carbonate (Calcium Carbonate 750 Mg Tab.Chew) 750 mg PO Q4H PRN PRN Reason: Heartburn Gabapentin (Gabapentin 600 Mg Tablet) 600 mg PO TID [facility] Last Admin: 01/08/25 21:00 Dose: 600 mg Documented By: KARLIE Hydromorphone HCl (Hydromorphone Hcl 2 Mg Tablet) 2 mg PO Q6H PRN PRN Reason: Pain, Moderate(Pain Scale 4-6) Last Admin: 01/09/25 06:04 Dose: 2 mg Documented By: KARLIE Hydromorphone HCl (Hydromorphone Hcl 0.5 Mg/0.5 Ml Syringe) 0.5 mg IVPUSH Q3H PRN; Protocol PRN Reason: Pain, Severe (Pain Scale 7-10) Last Admin: 01/09/25 01:26 Dose: 0.5 mg Documented By: KARLIE Acetaminophen (Ofirmev) 1,000 mg in 100 mls @ 400 mls/hr IV Q6H PRN PRN Reason: Pain, Mild (Pain Scale 1-3) Dextrose/Lactated Ringer's (D5lr) 1,000 mls @ 125 mls/hr IVCONT .Q8H [facility] Last Admin: 01/09/25 01:03 Dose: 125 mls/hr Documented By: KARLIE Magnesium Hydroxide (Milk Of Magnesia 30 Ml Oral.Susp) 30 ml PO DAILY PRN PRN Reason: Constipation Melatonin (Melatonin 3 Mg Tablet) 6 mg PO BEDTIME PRN PRN Reason: Insomnia Ondansetron HCl (Ondansetron Hcl 4 Mg/2 Ml Vial) 4 mg IVPUSH QID PRN PRN Reason: Nausea Sodium Chloride (0.9 % Sodium Chloride Flush 3 Ml Syringe) 3 ml IVFLUSH QSHIFT [facility] Last Admin: 01/08/25 21:27 Dose: 3 ml Documented By: KARLIE <[facility] - Last Filed: 01/09/25 07:21> Labs CBC & Chem 7: 01/09/25 05:32 01/09/25 05:32 <[facility] Last Filed: 01/09/25 07:21> Labs: Laboratory Results - last 24 hr 01/08/25 01/09/25 10:57 05:32 MCV 92.9 MCH 31.5 MCHC 33.9 RDW 14.3 Plt Count 302 MPV 9.3 L Immature Gran % (Auto) 0.4 Neut % (Auto) 78.3 H Lymph % (Auto) 13.2 L [place] % (Auto) 8.0 Eos % (Auto) 0.0 Baso % (Auto) 0.1 Lymph # (Auto) 1.6 [place] # (Auto) 1.0 Eos # (Auto) 0.0 Baso # (Auto) 0.0 Abs Immat Gran (auto) 0.05 H Absolute Neuts (auto) 9.5 H Absolute Nucleated RBC 0.000 Nucleated RBC % (auto) 0.0 Anion Gap 13 Estim Creat Clear Calc 85.3 Estimated GFR > 60 Random Glucose 149 H Calcium 9.1 Blood Type O Positive Antibody Screen NEGATIVE <[facility] - Last Filed: 01/09/25 07:21> Procedures Date of Service Date of Service: 01/09/25 <[facility] - Last Filed: 01/09/25 07:21> 01/09/25 <Cristopher Butt PA-C - Last Filed: 01/09/25 07:52> 01/09/25 <Rodger Doe MD - Last Filed: 01/09/25 08:34> Progress Note: A&P Assessment and plan (1) S/P left mastectomy: Status: Acute <Romeo Mccauley - Last Filed: 01/09/25 07:21> Assessment and Plan: Batsheva Greenberg is a 64 y/o woman who is POD 1 s/p modified radical mastectomy of the left breast due to 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 Her BHASKAR tube is still draining significant amounts (330mL over ~10 hrs). Pain management is her biggest augustin, but she has been switched to oral pain medication as of this morning. Plan Continue oral pain management as needed. Consider patient for discharge. Patient will need to return when BHASKAR tube output is <30mL for removal and lesion closure. Continue ambulating. 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 Her BHASKAR tube is still draining significant amounts (330mL over ~10 hrs). Pain management is her biggest augustin, but she has been switched to oral pain medication as of this morning. Plan Continue oral pain management as needed. Consider patient for discharge. Patient will need to return when BHASKAR tube output is <30mL for removal and lesion closure. Continue ambulating. seen and examined independently. I agree with the above assessment and plan. Overall patient doing well, she is having some difficulty with pain control, it is well controlled with IV pain medications however she has been trying to use the oral pain medications, and states her pain is increased and she would like to continue IV pain medications. BHASKAR output since procedure is 330 cc serosanguineous fluid. There is tenderness to the left breast, breast binder in place without strikethrough. Mild decrease in H/H, appropriate postoperative changes. 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 Her BHASKAR tube is still draining significant amounts (330mL over ~10 hrs). Pain management is her biggest augustin, but she has been switched to oral pain medication as of this morning. Plan Continue oral pain management as needed. Consider patient for discharge. Patient will need to return when BHASKAR tube output is <30mL for removal and lesion closure. Continue ambulating. seen and examined independently. I agree with the above assessment and plan. Overall patient doing well, she is having some difficulty with pain control, it is well controlled with IV pain medications however she has been trying to use the oral pain medications, and states her pain is increased and she would like to continue IV pain medications. BHASKAR output since procedure is 330 cc serosanguineous fluid. There is tenderness to the left breast, breast binder in place without strikethrough. Mild decrease in H/H, appropriate postoperative changes. There is also a mild leukocytosis, which is likely reactive from yesterdays procedure pain control continue diet as tolerated strict BHASKAR output management POD 1 following left modified radical mastectomy for invasive carcinoma left breast with lobular and ductal features. She tolerated the procedure well and has reasonable pain control with current medications. BHASKAR is producing serosanguineous fluid which is fairly thin. Agree with the above assessment and plan. We will continue observation today with possible discharge in a.m. with the drains. Patient should be instructed on drain management. <Rodger Doe MD - Last Filed: 01/09/25 08:34> Time Spent With Patient Time: Total time managing care of this patient today ____ minutes. <Romeo Mccauley - Last Filed: 01/09/25 07:21> Quality Stroke Does the patient have a stroke diagnosis?: No <Rodger Doe MD - Last Filed: 01/09/25 08:34> VTE Prior VTE?: No <Rodger Doe MD - Last Filed: 01/09/25 08:34> VTE Risk Level:: Surgical - moderate <Romeo Mccauley - Last Filed: 01/09/25 07:21> VTE Device Contraindication: N/A - Device Ordered <Romeo Mccauley - Last Filed: 01/09/25 07:21> VTE Drug Contraindication: Treatment Not Indicated <Romeo Mccauley - Last Filed: 01/09/25 07:21>
[2025-01-09 07:28] VITALS: BP 137/77; PULSE 87; RESP 18; TEMP 36.9; O2SAT 98
--- NOTE | 2025-01-09 07:52 | HO.POSTANES ---
Post Anesthesia Evaluation Post Anesthesia Evaluation Date of Service: 01/09/25 Vital Signs: Vital Signs Temp Pulse Resp BP Pulse Ox O2 Del Method 01/09/25 07:28 98.4 F 87 18 137/77 98 Room Air 01/09/25 04:00 98.2 F 92 18 139/79 99 Room Air Anesthesia: General LMA Mental Status: Awake Pain Control: Satisfactory Nausea/Vomiting: None Hydration: Adequate Anesthesia-Related Issues: No Anes. Related Issues
--- NOTE | 2025-01-09 10:22 | MHC.CM.PN ---
PT REPORTS SHE LIVES WITH HER AND IS INDEPENDENT WITH CARE SHE HAS NO DME AND NO HOME SERVICES PT DOES NOT HAVE A PCP SINCE HERS RETIRED, BROCHURE PROVIDED HCP ON FILE DCP: HOME NO SERVICES, PT FEELS COMFORTABLE MANAGING DRAINS WILL TRANSPORT
[2025-01-09] MEDS: 0.9 % Sodium Chloride Flush 3 ML SYRINGE IVFLUSH ×2 (15:10→20:13)
[2025-01-09 15:25] VITALS: BP 140/66; PULSE 75; RESP 18; TEMP 36.6; O2SAT 98
[2025-01-09] MEDS: Milk of Magnesia 30 ML ORAL.SUSP PO (16:11)
[2025-01-09 19:50] VITALS: BP 154/84; PULSE 77; RESP 18; TEMP 37.2; O2SAT 96
[2025-01-10 03:37] VITALS: BP 179/82; PULSE 69; RESP 18; TEMP 36.2; O2SAT 98
[2025-01-10 05:37] VITALS: BP 164/80
--- NOTE | 2025-01-10 06:51 | PM.PNGS ---
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 She is doing okay today and wants to go home. She said the pain still gets up to about an 8/10 when the pain medication wears off, but she said she is willing to switch to oral pain management if that can get her home sooner. She said she liked to IV meds for the instant relief. She also said she had a leak of fluid overnight. She also said she got really sad and cried during the night but is feeling better now. She hasn't really eaten anything due to not liking the food and denies N/V. She still has not had a BM but she is passing gas. She is ambulating and using spirometry as directed. She has no issues with urination, no chest pain, SOB, fever, or chills. <[facility] Last Filed: 01/10/25 07:02> Physical Exam Vital Signs: Vital Signs: Last Vital Signs Temp 97.1 F 01/10/25 03:37 Pulse 69 01/10/25 03:37 Resp 18 01/10/25 03:37 BP 164/80 H 01/10/25 05:37 Pulse Ox 98 01/10/25 03:37 O2 Del Method Room Air 01/10/25 03:37 O2 Flow Rate 2 01/08/25 16:23 BMI result Body Mass Index 30.5 <[facility] Last Filed: 01/10/25 07:02> Const: General: cooperative, healthy appearing, comfortable and no acute distress <[facility] Filed: 01/10/25 07:02> Orientation/consciousness: patient oriented x3 <[facility] Filed: 01/10/25 07:02> Chest: Other: Chest covered with binder. Binder has some brown fluid that leaked into it laterally. 2 BHASKAR tubes from the breast with scant serosanguinous fluid. <[facility] Filed: 01/10/25 07:02> Other: Chest covered with binder. Binder has some brown fluid that leaked into it laterally. 2 BHASKAR tubes from the breast with scant serosanguinous fluid. dressings removed, there was some strike through and saturation of the lateral aspect of the dressings. no active bleeding. <Cristopher Butt PA-C - Last Filed: 01/10/25 07:57> Chest palpation & inspection: tenderness (around the L breast) <[facility] Filed: 01/10/25 07:02> Chest palpation & inspection: tenderness (around the L breast mostly superior to the incision site) <Cristopher Butt PA-C - Last Filed: 01/10/25 07:57> Resp: Effort & Inspection: normal respiratory effort <[facility] Filed: 01/10/25 07:02> Auscultation: clear to auscultation bilaterally <[facility] Filed: 01/10/25 07:02> Cardio: Rate: regular rate <[facility] Filed: 01/10/25 07:02> Rhythm: regular rhythm <[facility] Filed: 01/10/25 07:02> Heart sounds: no click, no gallops, no murmurs and no rubs <[facility] Filed: 01/10/25 07:02> Skin: General skin exam: no erythema <[facility] Filed: 01/10/25 07:02> Neuro: General: patient oriented x3 <[facility] Filed: 01/10/25 07:02> Objective Data Active Medications Amitriptyline HCl (Amitriptyline Hcl 50 Mg Tablet) 50 mg PO BEDTIME PRN PRN Reason: insomnia, neuropathic pain Calcium Carbonate (Calcium Carbonate 750 Mg Tab.Chew) 750 mg PO Q4H PRN PRN Reason: Heartburn Gabapentin (Gabapentin 600 Mg Tablet) 600 mg PO TID [facility] Last Admin: 01/09/25 20:12 Dose: 600 mg Documented By: AMANDA Hydromorphone HCl (Hydromorphone Hcl 2 Mg Tablet) 2 mg PO Q6H PRN PRN Reason: Pain, Moderate(Pain Scale 4-6) Last Admin: 01/09/25 15:04 Dose: 2 mg Documented By: SAROJ Hydromorphone HCl (Hydromorphone Hcl 0.5 Mg/0.5 Ml Syringe) 0.5 mg IVPUSH Q3H PRN; Protocol PRN Reason: Pain, Severe (Pain Scale 7-10) Last Admin: 01/10/25 02:49 Dose: 0.5 mg Documented By: AMANDA Acetaminophen (Ofirmev) 1,000 mg in 100 mls @ 400 mls/hr IV Q6H PRN PRN Reason: Pain, Mild (Pain Scale 1-3) Last Infusion: 01/09/25 15:27 Dose: Infused Documented By: SAROJ Magnesium Hydroxide (Milk Of Magnesia 30 Ml Oral.Susp) 30 ml PO DAILY PRN PRN Reason: Constipation Last Admin: 01/09/25 16:11 Dose: 30 ml Documented By: SAROJ Melatonin (Melatonin 3 Mg Tablet) 6 mg PO BEDTIME PRN PRN Reason: Insomnia Ondansetron HCl (Ondansetron Hcl 4 Mg/2 Ml Vial) 4 mg IVPUSH QID PRN PRN Reason: Nausea Sodium Chloride (0.9 % Sodium Chloride Flush 3 Ml Syringe) 3 ml IVFLUSH QSHIFT [facility] Last Admin: 01/09/25 20:13 Dose: 3 ml Documented By: AMANDA <Romeo Carpenterh - Last Filed: 01/10/25 07:02> Labs CBC & Chem 7: 01/09/25 05:32 01/09/25 05:32 <[facility] - Last Filed: 01/10/25 07:02> Procedures Date of Service Date of Service: 01/10/25 <[facility] - Last Filed: 01/10/25 07:02> 01/10/25 <Cristopher Butt PA-C - Last Filed: 01/10/25 07:57> Progress Note: A&P Assessment and plan (1) S/P left mastectomy: Status: Acute <Romeo Carpenterh - Last Filed: 01/10/25 07:02> Assessment and Plan: Batsheva Greenberg is a 64 y/o woman who is POD 2 s/p modified radical mastectomy of the left breast due to 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 Her drains are still putting out significant liquid (239mL over 24 hours), so cannot be removed at this time. Pain control is her main issue right now. Plan Switch to oral pain management if possible. Consider giving a laxative to help with bowel movements. Patient should continue ambulating. Patient should continue using spirometry 10x per hour. 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 Her drains are still putting out significant liquid (239mL over 24 hours), so cannot be removed at this time. Pain control is her main issue right now. Plan Switch to oral pain management if possible. Consider giving a laxative to help with bowel movements. Patient should continue ambulating. Patient should continue using spirometry 10x per hour. Patient seen and examined independently, I agree with the above plan. Overall patient improving. will trial oral pain control, if patient comfortable in the afternoon can likely DC. Drains will remain in place. Dressing changes as needed. <Cristopher Butt PA-C - Last Filed: 01/10/25 07:57> Time Spent With Patient Time: Total time managing care of this patient today ____ minutes. <Romeo Carpenterh Last Filed: 01/10/25 07:02> Quality Stroke Does the patient have a stroke diagnosis?: No [facility] Last Filed: 01/10/25 07:02> VTE Prior VTE?: No <[facility] - Last Filed: 01/10/25 07:02> VTE Risk Level:: Surgical - moderate <[facility] Last Filed: 01/10/25 07:02> VTE Device Contraindication: N/A - Device Ordered <[facility] Last Filed: 01/10/25 07:02> VTE Drug Contraindication: Treatment Not Indicated <[facility] Last Filed: 01/10/25 07:02>
[2025-01-10] MEDS: 0.9 % Sodium Chloride Flush 3 ML SYRINGE IVFLUSH (07:40)
[2025-01-10 07:41] VITALS: BP 136/83; PULSE 69; RESP 18; TEMP 36.7; O2SAT 97
--- NOTE | 2025-01-10 09:30 | MHC.CM.PN ---
Patient is discharged to home today. She is independent with drain management. She will discharge to home self care. She has arranged for her to provide transportation home.
--- NOTE | 2025-01-10 15:05 | P.DS_ITS ---
DS: Providers Provider Date of Service: 01/10/25 Date of admission: 01/08/25 09:56 Date of discharge: 01/10/25 Primary care physician: Humberto Roca MD Admitting clinician: Rodger Doe Attending physician on admission: Rodger Doe Attending physician on discharge: Rodger Doe DS: Diagnosis Discharge Diagnosis (1) S/P left mastectomy: Status: Acute DS: Summary Hospital Course Hospital Course: admission hpi: 62-year-old female patient, former patient of Dr. Braswell with a previous history of infiltrating lobular carcinoma of the right breast. She underwent a right modified radical mastectomy on 03/23, she received 4 cycles of dose dense AC followed by 4 cycles of Taxotere and chest wall radiation. Pathology revealed 2 foci of infiltrating lobular carcinoma, 8 cm and 1.5 cm, grade 2, ER/TN positive, HER2 Yohan negative. Two sentinel nodes were positive (1 with macro metastases and the 2nd with micrometastases). Eight additional lymph nodes were removed all were negative for malignancy. TNM staging: T3 N1 M0, stage III. She was then started on tamoxifen following completion of the chemotherapy. She subsequently underwent a TRAM flap reconstruction of the right breast (Dr. Sal at [facility]) as well as reduction mammoplasty of the left breast. She denies any new breast symptoms but does still get some pain in the right axilla. This is made worse with heavy lifting at work. Her last mammogram of the left breast dated 05/02/2022 revealed no mammographic evidence of malignancy (BI-RADS 1). hospital course: Patient was brought to the operating room on 01/08 for left modified radical mastectomy. She tolerated the procedure well, two drains were left in place and she was admitted for further management. POD1 patient doing well, only complaint is pain. BHASKAR ouput about 330 overnight. seroanguenious. Tolerating diet. Out of bed, urinating independently. POD2 patient continuing to improve, no changes overnight. She is trialling oral pain meds for possible discharge. BHASKAR tube ouput decreased, likely due to a small occlusion from a clot, this was milked, now producing more output. [place] ready to go home. At the time of discharge patient was in stable condition, JPs will remain in place and removed in the office. patient was educated on maintaining drain at home. Time Attestation Discharge Coordination Time (in mins): 30 Quality: Safe Use of Opioids Does Pt have an Active Cancer Diagnosis on the Problem List?: Yes Opioid Measure Date for [facility] Report: 12/15/24 Opioid Measure Time for [facility] Report: 08:17 Quality: Stroke Does the patient have a stroke diagnosis?: No Physical Exam Vital Signs: Vital Signs: Last Vital Signs Temp 98.1 F 01/10/25 07:41 Pulse 69 01/10/25 07:41 Resp 18 01/10/25 07:41 BP 136/83 01/10/25 07:41 Pulse Ox 97 01/10/25 07:41 O2 Del Method Room Air 01/10/25 07:41 O2 Flow Rate 2 01/08/25 16:23 BMI result Body Mass Index 30.5 Const: General: cooperative, healthy appearing, comfortable and no acute distress Orientation/consciousness: patient oriented x3 Chest: Other: Chest covered with binder. Binder has some brown fluid that leaked into it laterally. 2 BHASKAR tubes from the breast with scant se rosanguinous fluid. dressings removed, there was some strike through and saturation of the lateral aspect of the dressings. no active bleeding. Chest palpation & inspection: tenderness (around the L breast mostly superior to the incision site) Resp: Effort & Inspection: normal respiratory effort Auscultation: clear to auscultation bilaterally Cardio: Rate: regular rate Rhythm: regular rhythm Heart sounds: no click, no gallops, no murmurs and no rubs Skin: General skin exam: no erythema Neuro: General: patient oriented x3 DS: Data Data Completed and Pending Pending studies at discharge: Pending at discharge 01/08/25 14:21 Surgical [PTH] Routine Discharge Plan Discharge Anticipated Discharge Date/Time: 01/10/25 08:50 Patient Disposition: Home, Self-Care Discharge Diagnosis: Invasive breast cancer left breast Referrals: Humberto Roca MD [Primary Care Provider, Internal Medicine] - 1 Week Rodger Doe MD [Physician, General Surgery] - 1 Week Discharge Medications: New oxycodone 5 mg tablet 5 mg PO Q6H PRN (Reason: pain (scale score 7-10)) Qty: 20 0RF Rx Instructions: Partial Fill upon patient request. Continued amitriptyline 50 mg tablet 50 mg PO BEDTIME PRN (Reason: insomnia, neuropathic pain) 30 Days Qty: 30 11RF gabapentin 600 mg tablet 600 mg PO TID 30 Days Qty: 90 11RF Discharge Orders: Discharge Order (Routine); Ordered 01/10/25 Ordered By: Rodger Doe Diet: Advance to usual diet Activity on Discharge: No heavy lifting Stand Alone Forms: Patient Portal Discharge page Print Language: Surinamese Care Plan Goals: return to normal activity Health Concerns: mass left breast Plan of Treatment: left modified radical mastectomy Assessment: Left breast invasive carcinoma Discharge Date/Time: 01/10/25 11:50
== END 2025-01-10 11:50 | disposition home or self-care (01) | DRG 583 ==
LOC: HO.SSSA 10:24 → HO.S3 16:20
PROVIDERS: Admitting Provider Surgery; PCP Internal Medicine Medical Oncology; Visit Provider Surgery
PROC: 0HTU0ZZ Resection of Left Breast, Open Approach (ICD-10-PCS; CPT 19307; principal; 2025-01-08 11:20)
DX: C50.412 Malignant neoplasm of upper-outer quadrant of left female breast (principal); G89.18 Other acute postprocedural pain; Z87.891 Personal history of nicotine dependence; Z79.899 Other long term (current) drug therapy
CPT/HCPCS: 36415; 80048; 85025; 86850; 86900; 86901; 88307; 88309; 88342; J0131; J0665; J0690; J1100; J1171; J2003; J2405; J2704; J3010

== ENCOUNTER → 2025-01-08 09:56 | Outpatient (BNV) | payer OTHER, SELFPAY | PROVIDERS: Admitting Provider Surgery; PCP Internal Medicine Medical Oncology; Visit Provider Surgery | DX: Z90.12 Acquired absence of left breast and nipple (principal) | CPT/HCPCS: 19307; 99024 ==

== ENCOUNTER 2025-01-17 10:58 | Outpatient (AMB) | payer OTHER, SELFPAY ==
--- OUTSIDE RECORDS SUMMARY | 2024-02-21 06:00 | XMS_ITS ---
Author Organization Humberto Roca III, MD Address [address] [place] [address] [place] [address] Care Team Providers Care Semiconductor Packages Platemaker Name Role Phone Oswald Murdock MD Primary Care Provider Humberto Franks [phone] Allergies Allergen (clinical drug ingredient) Drug/Non Drug [...] Date Provider Diagnosis Humberto Roca III, MD [address] [place] [address] [place] [address] 02/21/2024 Humberto Roca Former smoker Z87.89 1 [...] - Z79.810) She reports being up-to-date with OIL DISPATCHER and has had no vaginal bleeding. Plan Of Treatment Medication Medication Name Sig Start Date Stop Date Notes Gabapentin 300 MG 1 capsule Orally Once a day Next Appt Details Follow Up: 1 Year, Reason: o v no tests Provider Name:Humberto Roca, 02/20/2025 10:30:00 AM, [address] [place] [address] [address] [place] [address], [phone], Progress Notes * Chaya YANGSheriOB:1960 (63 yo F)Acc No.[id number]:02/21/2024 Progress Notes Patient: Batsheva TERRY Provider: Maria T Roca MD :1960 A ge:63 Y S ex:Female Date:02/21/2024 Address:[address] [place] [phone] Pcp:Oswald Murdock MD Subjective: * Chief Complaints: [...] T obacco Use: T obacco Use/Smoking P atient is a f ormer smoker H ow long has it been since you last smoked??> 10 years A dditional Findings: Tobacco Non-User E x-cigarette smoker S he works at [employer]. She has been for 10 years to George. They have 2 children. She was born in [place], [place]. * Medications: T akingGabapentin 300 MG [...] N otes :She reports being up-to-date with OIL DISPATCHER and has had no vaginal bleeding. Plan: [...] Roca MD Date: 1 Generated for Radha mcintosh/Juanis/Keyshaitting on: 0 01/17/2025 11:59 AM EDT History and Physical Notes * HPI (History of Present Illness) Category Sub-Category Detail Notes COVID-19 Screening Questions Have you had any new onset fever, chills, cough, congestion, sore throat, shortness of breath, muscle aches?: No Have you been exposed to the virus with n the last 10 days?: No Have you travelled internationally in [facility] last 10 days?: No Have you [...]
--- OUTSIDE RECORDS SUMMARY | 2024-12-18 09:09 | XMS_ITS ---
Author Organization Humberto Roca III, MD Address [address] [place] [address] [place] [address] Care Team Providers Care Computer Software Engineer Name Role Phone Oswald Murdock MD Primary Care Provider Humberto Franks [phone] REASON FOR VISIT pathology results Social History Sex Assigned At : Social History Observation Description Sex Assigned At Female Encounters Encounter Location Date Provider Diagnosis Humberto Roca III, MD [address] [place] [address] [address] [facility] [place] [address] 12/18/2024 Humberto Roca Plan Of Treatment Next Appt Details Provider Name:Humberto Roca, 02/20/2025 10:30:00 AM, [address] [place] [address] [place], [address], Progress Notes * Zan YANGOB:1960 (64 yo F)Acc No.[id number]:12/18/2024 Patient: Batsheva TERRY :1960 A ge:64 Y S ex:Female Address:[address] [place], [place] [address] [address] * true * Date: Generated for Printi ng/Faxing/eTransmitting on: 0 01/17/2025 12:00 PM EDT
--- OUTSIDE RECORDS SUMMARY | 2024-12-31 09:48 | XMS_ITS ---
Author Organization Humberto Roca III, MD Address [address] [place] [address] [place] [address] Care Team Providers Care Justice Professor Name Role Phone Oswald Murdock MD Primary Care Provider Humberto Franks [phone] REASON FOR VISIT update Social History Sex Assigned At : Social History Observation Description Sex Assigned At Female Encounters Encounter Location Date Provider Diagnosis Humberto Roca III, MD [address] [place] [address] [place] [address] 12/31/2024 Humberto Roca Plan Of Treatment Next Appt Details Provider Name:Humberto Roca, 02/20/2025 10:30:00 AM, [address] [place] [address] [place], [address], Progress Notes * Zan YANGOB:1960 (64 yo F)Acc No.[id number]:12/31/2024 Patient: Batsheva TERRY :1960 A ge:64 Y S ex:Female Address:[address] [place], [place] [address] [address] * true * Date: Generated for Printi ng/Faxing/eTransmitting on: 0 01/17/2025 11:59 AM EDT
--- OUTSIDE RECORDS SUMMARY | 2025-01-08 13:00 | XMS_ITS ---
Author Organization Humberto Roca III, MD Address [address] [place] [address] [place] [address] Care Team Providers Care Junior Systems Engineer Name Role Phone Oswald Murdock MD Primary Care Provider Humberto Franks [phone] REASON FOR VISIT New Concern Social History Sex Assigned At : Social History Observation Description Sex Assigned At Female Encounters Encounter Location Date Provider Diagnosis Humberto Roca III, MD [address] [place] [address] DR [facility] [place] [facility] [place] [address] 01/08/2025 Humberto Roca Plan Of Treatment Next Appt Details Provider Name:Humberto Roca, 02/20/2025 10:30:00 AM, [address] [place] [address] [place], [address], Progress Notes * Chaya YANGeDOB:1960 (64 yo F)Acc No.[id number]:01/08/2025 Progress Notes Patient: Batsheva TERRY Provider: Maria T Roca MD :1960 A ge:64 Y S ex:Female Date:01/08/2025 Address:[address] [place], [place] [id number] Pcp:Oswald Murodck MD Subjective: * Chief Complaints: * 1 . New Concern. * Medical History: Objective: * Vitals: Assessment: Plan: * Treatment: * Images: * The named appointment provid er may or may not be the originator of this progress note, and it is not deemed complete until electronically signed by the appointment provider. Sign off status: Pending * Provider: Maria T Roca MD Date: 0 01/08/2025 Generated for Radha mcintosh/Juanis/Elvis on: 0 01/17/2025 11:59 AM EDT
--- OUTSIDE RECORDS SUMMARY | 2025-01-14 10:30 | XMS_ITS ---
Author Organization Humberto Roca III, MD Address [address] [place] [address] [place] [address] Care Team Providers Care Edge Bander Hand Name Role Phone Oswald Murdock MD Primary Care Provider Humberto Franks [phone] Allergies Allergen (clinical drug ingredient) Drug/Non Drug Allergy documented on EMR Reaction Allergy Type Onset Date Status Seasonale Unknown Drug Allergy Active REASON FOR VISIT New Concern Medications Medication SIG (Take, Route, Fr equency, [...] Additional Findings: Tobacco Non-User Ex-cigaret te smoker Encounters Encounter Location Date Provider Diagnosis Humberto Roca III, MD [address] [place] [address] [place] [address] 01/14/2025 Humberto Roca Plan Of Treatment Medication Medication Name Sig Start Date Stop Date Notes Gabapentin 300 MG 1 capsule Orally Once a day Next Appt Details Provider Name:Humberto Roca, 02/20/2025 10:30:00 AM, [address] [place] [address] [place] [facility] [place], [id number], Progress Notes * Zan YANGOB:1960 (64 yo F)Acc No.[id number]:01/14/2025 Progress Notes Patient: Batsheva TERRY Provider: Maria T Roca MD :1960 A ge:64 Y S ex:Female Date:01/14/2025 Address:[address] [place], [place] [address] [id number] Pcp:Oswald Murdock MD Subjective: * Chief Complaints: * 1 . New Concern. * HPI: C OVID-19 Screening: Questions H ave you had any new onset fever, chills, cough, congestion, sore throat, shortness of breath, muscle aches? N o * ROS: G eneral/Constitutional: pain o nly normal aches and pains. C hills d enies.?Fatigue a dmits. F ever d enies. E NT: Decreased hearing d enies. R espiratory: Cough d enies. C ardiovascular: Chest pain with exertion d enies. D yspnea on exertion?denies. S hortness of breath d enies. G astrointestinal: Constipation d enies. D ecreased appetite d enies.?Diarrhea d enies. H eartburn d enies. N ausea d enies. R ectal bleeding?denies. V omiting d enies. H ematology: bruising [...] Depressed mood d enies. * Medical History: [place] 3P2AB1, Breast cancer, last mammogram 05/2015 @ [facility], [place] stop 04/2019. * Surgical History: 2 caesarean sections , appendectomy , right breast reconstruction , left breast reduction , full dental extractions 2018 . * Hospitalization/Major Diagno stic Procedure: D enies Past Hospitalization. * Family History: F ather: , unknown. M other: 83 yrs, hyperlipidemia, chronic obstructive pulmonary disease, hypertension, diagnosed with Hyperlipidemia, HTN. 3 brother(s) , 3 sister(s) - healthy. 1 son(s) , 1 daughter(s) - healthy. . There is no history of breast cancer history. * Social History: T obacco Use: T obacco Use/Smoking P atient is a f ormer smoker H ow long has it been since you last smoked??> 10 years A dditional Findings: Tobacco Non-User E x-cigarette smoker S he works at [employer]. She has been for 10 years to George. They have 2 children. She was born in [place], [place]. * Medications: T aking Gabapentin 300 MG Capsule 1 capsule Orally Once a day , Medication List reviewed and reconciled with the patient * Allergies: S easonale. Objective: * Vitals: * Examination: G eneral Examination: GENERAL APPEARANCE: p leasant, well nourished, well developed, in no acute distress, calm and relaxed. HEAD: a traumatic, normocephalic. EYES: e marielena, [...] LUNGS: c lear to auscultation . BREASTS: no masses palpable bilaterally. ABDOMEN: b owel sounds normal, no ascites, no organomegaly, no mass. RECTAL EXAM: n ot examined. MUSCULOSKELETAL: e xtremities unremarkable, no clubbing, cyanosis or edema. PERIPHERAL PULSES: n ormal. NEUROLOGIC: a lert and oriented, cranial nerves 2-12 grossly intact, deep tendon reflexes 2+ symmetrical, motor strength normal upper and lower extremities, sensory exam intact. PSYCH: a lert, oriented. Assessment: Plan: * Treatment: * Images: * The named appointment provid er may or may not be the originator of this progress note, and it is not deemed complete until electronically signed by the appointment provider. Sign off status: Pending * Provider: Maria T Roca MD Date: 01/14/2025 Generated for Radha mcintosh/Juanis/Elvis on: 01/17/2025 11:59 AM EDT History and Physical Notes * HPI (History of Present Illness) Category Sub-Category Detail Notes COVID-19 Screening Questions Have you had any new onset fever, chills, cough, congestion, sore throat, shortness of breath, muscle aches?: No Examination Category Sub-Category Detail Notes General Examination GENERAL APPEARANCE: pleasant , well nourished, well developed, in no acute distress, calm and relaxed HEAD: atraumatic, normocep halic EYES: eomi, perrla, anicte zia, conjugate EARS: normal NOSE: septum intact NECK/THYROID: no jugular venous di stention, no carotid bruit, thyroid normal HEART: no clicks, gallops, murmurs, or rubs, regular rhythm, S1, S2 normal, no s3, or vascular bruits LUNGS: clear to auscultatio n ABDOMEN: bowel sounds normal, no ascites, no organomegaly, no mass NEUROLOGIC: alert and oriented, cranial nerves 2-12 grossly intact, deep tendon reflexes 2+ symmetrical, motor strength normal upper and lower extremities, sensory exam intact SKIN: no suspicious lesion s, anicteric PERIPHERAL PULSES: normal BREASTS: no masses palpable b ilaterally MUSCULOSKELETAL: extremities unremark able, no clubbing, cyanosis or edema LYMPH NODES: no enlarged lymph no demar,spleen normal RECTAL EXAM: not examined PSYCH: alert, oriented ORAL CAVITY: normal, unremarkable
--- NOTE | 2025-01-17 11:06 | MHC.OFFVIS ---
Vital Signs 01/17/25 11:18 Weight 168 lb BP 134/69 Blood Pressure Location Rt brachial Position Sitting Pulse 85 Intake Visit Reasons: S/P Lt modified radical mastectomy Intake Note: Patient is seen in office for post op assessment post left breast modified radical mastectomy. Patient c/o: pain on left chest area. Has one pill of pain meds left. Requesting rx. Denies oozing, bleeding from incisions. Has two drains. Output has been consistent. surgery:01/08/25 Policy Loan Calculator Required: No Accompanied by: Self / Same As Patient Allergies adhesive Allergy (Unknown, Uncoded 01/17/25 11:17) rash percocet Allergy (Unknown, Uncoded 01/17/25 11:17) nausea/vomiting HPI HPI S/P Lt modified radical mastectomy: Details: 64-year-old female patient who had screening mammogram performed on 10/03/2024 as well as follow-up images and ultrasound on 12/02/2024 which revealed 2 irregular hypoechoic solid masses in the 2 o'clock position felt to be suspicious for malignancy. She underwent left breast ultrasound-guided core biopsy of 12/12/2024 reveal invasive carcinoma with lobular and ductal features, located in 2 lesions, ER positive, MN positive, HER2 Yohan negative. Her past history is significant for a right modified radical mastectomy on 03/23 for invasive lobular carcinoma, she received 4 cycles of dose dense AC followed by 4 cycles of Taxotere and chest wall radiation. Pathology revealed 2 foci of infiltrating lobular carcinoma, 8 cm and 1.5 cm, grade 2, ER/MN positive, HER2 Yohan negative. Two sentinel nodes were positive (1 with macro metastases and the 2nd with micrometastases). Eight additional lymph nodes were removed all were negative for malignancy. TNM staging: T3 N1 M0, stage III. She was then started on tamoxifen following completion of the chemotherapy. She subsequently underwent a TRAM flap reconstruction of the right breast (Dr. Sal at [facility]) as well as reduction mammoplasty of the left breast. She had left breast MRI which showed left upper outer quadrant biopsy-proven malignancy in 2 sites with extensive surrounding suspicious masses and nonmass enhancement with multiple prominent left axillary lymph nodes. She decided to proceed with mastectomy. She underwent left breast modified radical mastectomy on 01/08/[address] Doe. She tolerated the procedure well. Her recovery course was uncomplicated and she was discharged to home on 01/10/25 with her BHASKAR drains in place. She returns today for wound and drain check. She reports feeling ok. She continues to have pain at both the breast and axilla. She is taking oxycodone twice a day with tylenol in between for the pain. She will need more oxycodone. She is tolerating a solid diet. She has not had a good BM since before the procedure. She did not bring her drain records but reports emptying them both twice a day for around 30cc and reports drainage is yellow/red tinged. She denies fevers, chills, nausea, vomiting, rashes. She has an appointment with Dr. Trinh next week. [facility] Medical History HTN (hypertension) Invasive lobular carcinoma of breast, stage 3 Surgical History History of 2 sections History of appendectomy History of mastectomy History of right breast biopsy Family History Mother HTN (hypertension) Social History Household Members: Spouse Housing: House Are you a primary personal care service provider to a significant other at home: No Do you presently have visiting nurse or other home services: No Alcohol intake: current Alcohol intake frequency: holidays/special occasions only Patient Tobacco Use Status: Former Tobacco user Tobacco use type: Cigarette service: No Current occupational status: employed and unemployed Female Reproductive History Menstrual Age of Menarche: 13 Review of Systems Const All systems reviewed & are unremarkable except as noted in HPI and below Physical Exam Vital Signs: Last Vital Signs Pulse 85 01/17/25 11:18 BP 134/69 01/17/25 11:18 Const General: comfortable, no acute distress and alert Orientation/consciousness: patient oriented x3 Chest Other: left mastectomy incision with steris in place, both flaps viable appearing, no erythema, some mild edema and induration of inferior flap with small amount of fullness/fluid present incision site/axilla mildly tender Resp Effort & Inspection: normal respiratory effort Skin General skin exam: no rashes or lesions noted Neuro General: patient oriented x3 and moves all extremities Results Reviewed Results Reviewed: Breast, left, mastectomy: - 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 - Ductal carcinoma in-situ, nuclear grade 2, with necrosis; margins negative (2.5 cm). - Lobular carcinoma in-situ. - Background biopsy site changes, usual ductal hyperplasia and fibrocystic changes. - Metastatic carcinoma present in two of nine lymph nodes examined. - pT2 N1a (AJCC Stage 8th ed.) Assessment & Plan Assessment & Plan (1) S/P left mastectomy: Code(s): Z90.12 - Acquired absence of left breast and nipple Category: Surgical Plan 64 year old female left breast invasive carcinoma with lobular and ductal features who underwent left breast modified radical mastectomy on 01/08/[address] Doe. She tolerated the procedure well and continues to overall well post operatively. Mastectomy incision site is clean appearing without evidence of infection, both flaps viable. She does have some mild edema/induration and fluid at the inferior flap. BHASKAR drainage remains high and therefore will keep both drains in place with follow up in 1 week for possible removal. She was instructed to bring her drain records to the next appointment. Pathology was reviewed with the patient by Dr. Doe. She has a referral in for heme/oncology follow up and has an appointment scheduled. Her oxycodone has been renewed as well as a stool softener which she has been instructed to take twice a day while she is taking narcotics. All questions answered. F/u in 1 week; can call or return sooner if develops concerns. Coding Level of Care Code Global (01627) Diagnoses S/P left mastectomy Z90.12
[2025-01-17 11:18] VITALS: BP 134/69; PULSE 85
--- OUTSIDE RECORDS SUMMARY | 2025-01-17 12:00 | XMS_ITS | Patient Health Record ---
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 [place] [id number] Mammography Report Signed Patient: Batsheva Greenberg MR#: [id number] : 1960 Acct:[id number] Age/Sex: 64 / F ADM Date: 10/03/24 Loc: HO.MAMMO Attending Dr: Humberto Roca MD Ordering Physician: Humberto Roca MD Results: 0Incompl ete: Needs Additional Imaging Evaluation Date of Service: 10/03/24 Follow Up: Additional Imagi ng Procedure(s): MM tomosynthesis screening Accession Number(s): [id number] cc: Humberto Roca MD EXAMINATION: MM SCREENING [...] 10/11/24 1650 DD/ 0815 TD/TT: 10/03/24 0830 [employer]: [facility] [address] [place] [address] Mammography Report Signed Patient: Batsheva Greenberg MR#: [id number] : 1960 Acct:[id number] Age/Sex: 64 / F ADM Date: 10/03/24 Loc: HO.MAMMO Attending Dr: Humberto Roca MD Ordering Physician: Humberto Roca MD Results: 0Incompl ete: Needs Additiona l Imaging Evaluation Date of Service: Follow Up: Additional Imagi ng Procedure(s): MM tomosynthesis screening LT Accession Number(s): [id number] cc: Humberto Roca MD EXAMINATION: MM SCREENING [...] By: Fidelina Brandon DO Signed By: <Electron icallmicaela signed by Fidelina Brandon DO in OV> 10/11/24 1650 DD/ 0815 TD/TT: 10/03/24 0830 [employer]: PATEL tomosynthesis added views L Reviewed date:12/22/2024 08:09:11 PM Interpretation: Performing Lab: Notes/Report: [facility] [address] [place] [address] Mammography Report Signed Patient: Batsheva Greenberg MR#: [id number] : 1960 Acct:[id number] Age/Sex: 64 / F ADM Date: 12/02/24 Loc: HO.MAMMO Attending Dr: Humberto Roca MD Ordering Physician: Humberto Roca MD Results: 4Suspici ous Finding Date of Service: 12/02/24 Follow Up: Biopsy Recommend ed Procedure(s): MM tomosynthesis added views L Accession Number(s): [id number] cc: Humberto Roca MD EXAMINATION: MM DIAGNOSTIC [...] 12/02/24 1044 DD/ 0945 TD/TT: 12/02/24 1010 [employer]: [facility] [address] [place] [address] [place], [place] [address] Mammography Report Signed Patient: Batsheva Greenberg MR#: [id number] : 1960 Acct:[id number] Age/Sex: 64 / F ADM Date: 12/02/24 Loc: HO.MAMMO Attending Dr: Humberto Roca MD Ordering Physician: Humberto Roca MD Results: 4Suspici ous Finding Date of Service: Follow Up: Biopsy Recommend ed Procedure(s): MM tomosynthesis added views L Accession Number(s): [id number] cc: Humberto Roca MD EXAMINATION: MM DIAGNOSTIC [...] 12/02/24 1044 DD/ 0945 TD/TT: 12/02/24 1010 [employer] [place]: US breast LT limited mamm on ly Reviewed date:12/22/2024 08:09:11 PM Interpretation: Performing Lab: Notes/Report: [facility] [address] [place], [place] [address] Ultrasound Report Signed Patient: Batsheva Greenberg MR#: [id number] : 1960 Acct:[id number] Age/Sex: 64 / F ADM Date: 12/02/24 Loc: HO.MAMMO Attending Dr: Humberto Roca MD Ordering Physician: Humberto Roca MD Date of Service: 12/02/24 Procedure(s): US breast LT limited mamm only Accession Number(s): [id number] cc: Humberto Roca MD EXAMINATION: MM DIAGNOSTIC [...] 12/02/24 1044 DD/ 0944 TD/TT: 12/02/24 1022 [employer]: [facility] [address] [place] [address] Ultrasound Report Signed Patient: Batsheva Greenberg MR#: [id number] : 1960 Acct:[id number] Age/Sex: 64 / F ADM Date: 12/02/24 Loc: HO.MAMMO Attending Dr: Humberto Roca MD Ordering Physician: Humberto Roca MD Date of Service: 12/02/24 Procedure(s): US ovidio ast LT limited mamm only Accession Number(s): [id number] cc: Humberto Roca MD EXAMINATION: MM DIAGNOSTIC [...] 12/02/24 1044 DD/ 0944 TD/TT: 12/02/24 1022 [employer]: Pathology Reviewed date:01/10/2025 02:53:02 PM Interpretation: Performing Lab:[facility], [address] [place] [id number] Notes/Report: -------- -------- Name: Batsheva Greenberg John e/Sex: 64/F : 1960 [id number]#: [id number] Attend Dr: Rodger Doe MD Re12/12/24 Status : DEP REF Location: .MAMMO Disch: -------- -------- SPEC : [id number] RECD : 12/12/24 STATUS: AMBROCIO BETANCOURT NUM: [id number] FANY: 12/12/[address] [facility] [address]: Fidelina Brandon DO ENTERED: 12/12/24-10 15 SP TYPE: Surgical OTHR DR: Humberto Rcoa MD,Rodger Arriaga MD ORDERED: HE Stain/4, Gross Micro L4/2, Cytokeratin/2, ER/2, MT/2, IHC/2, Add. immunos/6, IHC ER/MT/Her2N/8, E-cadherin/2, Ki-67/2, p63/2, SMM/2, XKB6UHP/2 COMMENTS: Part A: As per the specimen [...] is made to the diagnoses. Addendum Signed (signature on file) Bry Charles MD 12/31/24908 -------- -------- Diagnosis A. Breast, left mass site A, [...] Will be addended CONTINUED ON NEXT PAGE -------- -------- Name: Batsheva Greenberg ge/Sex: 64/F : 1960 Unit#: [id number] Attend Dr: Rodger Doe MD Re12/12/24 Status : DEP REF Location: HO.MAMMO Disch: -------- -------- SPEC : [id number] RECD : 12/12/24-1010 STATUS: AMBROCIO BETANCOURT NUM: [id number] FANY: 12/12/24-[address] [facility] [address]: Fidelina Brandon DO ENTERED: 12/12/24- 15 SP TYPE: Surgical OTHR DR: Humberto Roca MD, John J MD ORDERED: HE Stain/4, Gross Micro L4/2, Cytokeratin/2, ER/2, MT/2, IHC/2, Add. immunos/6, IHC ER/MT/Her2N/8, E-cadherin/2, Ki-67/2, p63/2, SMM/2, LOS4HZU/2 COMMENTS: Part A: As per the specimen requisition slip the specimen is collected at 13 and placed in formalin at 0922. Part B: As per the [facility] requisition slip the specimen is collected at 0913 and placed in formalin at 0924. Diagnosis (Continued) Breast Biopsy Data Synopsis Procedure: Core biopsy Specimen laterality: Left (two sites - A and B) Histologic type: Adolph kee and lobular features Histologic grade (Tree/MSBR histologic score): 2 - Glandular/tubular differentiation: Score: 3 - Nuclear pleomorphi sm: Score: 2 - Mitotic rate: Score: 1 [...] intraductal papilloma (but are negative in the tumo r focus). B. Sections have cor es of [...] the tumor cells. CONTINUED ON NEXT PAGE -------- -------- Name: YariBatshevakevin Lopez e/Sex: 64/F : 1960 Unit#: [id number] Attend Dr: Rodger Doe MD Re12/12/24 Status : DEP REF Location: HO.MAMMO Disch: -------- -------- SPEC : [id number] RECD : 12/12/24-1010 STATUS: AMBROCIO BETANCOURT NUM: [id number] FANY: 12/12/24-[address] [facility] [address]: Fidelina Brandon DO ENTERED: 12/12/24- 15 SP TYPE: Surgical OTHR DR: Humberto Roca MD, John J MD ORDERED: HE Stain/4, Gross Micro L4/2, Cytokeratin/2, ER/2, MT/2, IHC/2, Add. immunos/6, IHC ER/MT/Her2N/8, E-cadherin/2, Ki-67/2, p63/2, SMM/2, QNC3OLT/2 COMMENTS: Part A: As per the specimen [...] in a cassette labeled B. CEDS Formalin-fixed paraffin-embedded tissue. Time tissue removed from patient: 912 Time tissue placed i n fixative: 921 and 923 Duration of fixation : between 6 and 24 hrs. Estrogen and Progest erone receptor immunohistochemistry performed in accordance with ASCO/CAP recommendat ions (2010). Estrogen receptor: Tamia santos SP1; Dako Envision+ Dual Link System-HRP. Progesterone recepto r: Clone [id number]; Bizo Mach 4 detection system. Her-2/trudi immunohistochemistry performed in accordance with ASCO/CAP recommendations (2007) and update (2013). Hercep Test CONTINUED ON NEXT PAGE -------- -------- Name: Batsheva Greenberg John e/Sex: 64/F : 1960 Unit#: [id number] Attend Dr: Rodger Doe MD Re12/12/24 Status : [facility]P [facility] -------- SPEC : [id number] RECD : 12/12/24-101 STATUS: AMBROCIO BETANCOURT NUM: [id number] FANY: 12/12/24-[address]: Fidelina Brandon DO ENTERED: 12/12/24-10 15 SP TYPE: Surgical OTHR DR: Humberto Roca MD, John J MD ORDERED: HE Stain/4, Gross Micro L4/2, Cytokeratin/2, ER/2, MT/2, IHC/2, Add. immunos/6, IHC ER/MT/Her2N/8, E-cadherin/2, Ki-67/2, p63/2, SMM/2, MIF7TGC/2 COMMENTS: Part A: As per the specimen requisition slip the specimen is collected at 0913 and placed in formalin at 0922. Part B: As per the s pecimen requisition slip the specimen is collected at 0913 and placed in formalin at 0924. Gross Description (Continued) Detection system: Po lymer type Scoring criteria: For ER/MT and Her-2/ trudi: All internal (if present) and external controls react appropriately. ER and MT immunostai ns are scored as Positive (> [...] 10% of the carcinoma or Negative (0) corresponding to negative or incomplete/weak membranous staining in <10% of cells. HER2 Low (1+) corresponding to incomplete/weak membranous staining in >10% of cells. The Equivocal (2+) designation reflects weak or non-uniform circumferential staining or [...] Arch of Pathol Lab Med, 142, 2018: 5805-8779. Verito KH, Luisito ME, et al. Estrogen and Progesterone Receptor Testing in Breast Cancer: ASCO/CAP Guideline U pdate. Arch of Pathol Lab Med, 144 2020: 545-563. Pari N, Monroe P , et al. Adjuvant abemaciclib combined with endocrine therapy for high- risk early breast ca ncer: updated efficacy and Ki-67 analysis from the [facility] study. Shantelle Oncol. 2020;32(12):6273-5226. This case was review ed intradepartmentally; results were communicated to Drs. Doe and Aleksandr on 12/16/2024. CONTINUED ON NEXT PAGE -------- -------- Name: Batsheva Greenberg John e/Sex: 64/F : 1960 Unit#: [id number] Attend Dr: Rodger Doe MD Re12/12/24 Status : DEP REF Location: .MAMMO Disch: -------- -------- SPEC : [id number] RECD : 12/12/241011 STATUS: AMBROCIO BETANCOURT NUM: [id number] FANY: 12/12/[address] [facility] [address]: Fidelina Brandon DO ENTERED: 12/12/24- 15 SP TYPE: Surgical OTHR DR: Humberto Roca MD, John J MD ORDERED: HE Stain/4, Gross Micro L4/2, Cytokeratin/2, ER/2, MT/2, IHC/2, Add. immunos/6, IHC ER/MT/Her2N/8, E-cadherin/2, Ki-67/2, p63/2, SMM/2, FHO0BUV/2 COMMENTS: Part A: As per the specimen requisition slip the specimen is collected at 0913 and placed in formalin at 0922. Part B: As per the s pecimen requisition slip the specimen is collected at 0913 and placed in formalin at 0924. Gross Description (Continued) Special studies orde red and performed: Immunostains for E-cadherin, pancytokeratin, p63, smooth muscle myosin , ER, MT, HER2 and Ki 67 (A and B) IHC S/NG Disclaimer NOTE: Unless otherwi se stated, all tissue is formalin-fixed and paraffin-embedded. Some or all of the immunohistochemical tests reported herein may have been developed and their performance characte ristics determined by [facility]. They have not been cleared or appr josefa by the U.S. Food and Drug Administration (FDA). However, the FDA has determined that such clearance or approval is not necessary. This laboratory is certified under the Clinical Laboratory Improvement Amendments of 1988 (CLIA) as qualified to perform high comp lexity clinical laboratory testing. Copies To: Humberto Roca MD [address] [place] [address], [address] [place] [address] Rodger Doe MD [facility] [address] [place] [address] Fidelina Brandon DO [address] [place] [address] -------- -------- Signed (si gnature on file) Bry Charles MD 12/16/24 1638 -------- -------- END OF REPORT MM tomosynthesis diagnostic LT Reviewed date:12/22/2024 08:09:10 PM Interpretation: Performing Lab: Notes/Report: [facility]'s [address] [place] [address] Mammography Report Signed with Addnya Patient: Bathseva Greenberg MR#: [id number] : 1960 Acct:[id number] Age/Sex: 64 / F ADM Date: 12/12/24 Loc: BRANDI Attending Dr: Rodger Doe MD Ordering Physician: Rodger Doe MD Results: Date of Service: 12/12/24 Follow Up: Procedure(s): MM tomosynthesis diagnostic LT Accession Number(s): [id number] cc: Humberto Roca MD; Rodger Doe MD [...] OV> 12/12/24 1151 DD/ 4 TD/TT: 12/12/24929 [employer]: [facility] [address] [place] [address] [place] [address] Mammography Report Signed with Addenda Patient: Batsheva Greenberg MR#: [id number] : 1960 Acct:[id number] Age/Sex: 64 / F ADM Date: 12/12/24 Loc: HO.MAMMO Attending Dr: Rodger Doe MD Ordering Physician: Rodger Doe MD Results: Date of Service: Follow Up: Procedure(s): MM tomosynthesis diagnostic LT Accession Number(s): [id number] cc: Humberto Roca MD; Rodger Doe MD [...] coil metallic clip was deposited at the bio psy site. Site 8B: Using sonographic gu idance, sterile technique, and 1% lidocaine without epinephrine for loca l anesthesia, a total of 4 cores were obtained through the targeted area with a 14-gauge biopsy device. At the completion of tissue sampling, a single butterfly metallic clip was deposited at the bio psy site. An appropriate sampl e was obtained. The postprocedure 2- view direct digital mammogram reveals satisfactory positioning of the b iopsy clips. The patient tolerate d the procedure well and, after assuring adequate hemostasis, was disc harged in good condition after reviewing postbiopsy breast care instruct ions. Final pathology results are pending. M M/MM tomosynthesis diagnostic LT IMPRESSION: 1. Uncomplicated sonographically-guided core biopsy of the left breast. The 2-view direct di gital postprocedure mammogram reveals satisfactory positioning of the b iopsy clips. 2. Final pathology r esults are pending. A separate report with final recommendations will be issued once these results are made available. Electronically kodi d by: Fidelina Brandon DO 12/12/2024 11:51 AM EDT Dictated By: Fidelina Brandon DO Signed By: <Modesto lima signed by Fidelina Brandon DO in OV> 12/12/24 1151 DD/ 0905 TD/TT: 12/12/24929 [employer]: breast ndl core bio ea ad d Reviewed date:12/22/2024 08:09:10 PM Interpretation: Performing Lab: Notes/Report: [place] [facility]'s [address] [place], [place] [address] Ultrasound Report Signed with Addnya Patient: Batsheva Greenberg MR#: [id number] : 1960 Acct:[id number] Age/Sex: 64 / F ADM Date: 12/12/24 Loc: HO.MAMMO Attending Dr: Rodger Doe MD Ordering Physician: Rodger Doe MD Date of Service: 12/12/24 Procedure(s): US breast ndl core bio ea add Accession Number(s): [id number] cc: Humberto Roca MD; Rodger Doe MD [...] 12/12/24 1151 DD/ 0905 TD/TT: 12/12/24 09 [employer]: [place] [facility] [address] [place] [address] Ultrasound Report Signed with Addenda Patient: Batsheva Greenberg MR#: [id number] : 1960 Acct:[id number] Age/Sex: 64 / F ADM Date: 12/12/24 Loc: MAMMO Attending Dr: Rodger Doe MD Ordering Physician: Rodger Deo MD Date of Service: 12/12/24 Procedure(s): US ovidio ast ndl core bio ea add Accession Number(s): [id number] cc: Humberto Roca MD; Rodger Doe MD [...] coil metallic clip was deposited at the bio psy site. Site 8B: Using sonographic gu idance, sterile technique, and 1% lidocaine without epinephrine for loca l anesthesia, a total of 4 cores were obtained through the targeted area with a 14-gauge biopsy device. At the completion of tissue sampling, a single butterfly metallic clip was deposited at the bio psy site. An appropriate sampl e was obtained. The postprocedure 2- view direct digital mammogram reveals satisfactory positioning of the b iopsy clips. The patient tolerate d the procedure well and, after assuring adequate hemostasis, was disc harged in good condition after reviewing postbiopsy breast care instruct ions. Final pathology results are pending. [facility]/ breast ndl core bio ea add IMPRESSION: 1. Uncomplicated sonographically-guided core biopsy of the left breast. The 2-view direct di gital postprocedure mammogram reveals satisfactory positioning of the b iopsy clips. 2. Final pathology r esults are pending. A separate report with final recommendations will be issued once these results are made available. Electronically kodi d by: Fidelina Brandon DO 12/12/2024 11:51 AM EDT Dictated By: Fidelina Brandon DO Signed By: <Modesto lima signed by Fidelina Brandon DO in OV> 12/12/24 1151 DD/ TD/TT: 12/12/24929 [employer]: US breast ndl core biopsy LT Reviewed date:12/22/2024 08:09:10 PM Interpretation: Performing Lab: [facility]/Report: [facility] [address] [place] [address] Ultrasound Report Signed with Addenda Patient: Batsheva Greenberg MR#: [id number] : 1960 Acct:[id number] Age/Sex: 64 / F ADM Date: 12/12/24 Loc: BRANDI Attending Dr: Rodger Doe MD Ordering Physician: Rodger Doe MD Date of Service: 12/12/24 Procedure(s): US breast ndl core biopsy LT Accession Number(s): [id number] cc: Humberto Roca MD; Rodger Doe MD [...] 12/18/2024 01:47 PM EDT RP Addendum Dictated By: Fidelina Brandon DO Addendum [...] OV> 12/12/24 1151 DD/ 4 TD/TT: 12/12/24929 [employer]: [facility] [address] [place] [address] Ultrasound Report Signed with Addenda Patient: Batsheva Greenberg MR#: [id number] : 1960 Acct:[id number] Age/Sex: 64 / F ADM Date: 12/12/24 Loc: HO.MAMMO Attending Dr: Rodger Doe MD Ordering Physician: Rodger Doe MD Date of Service: 12/12/24 Procedure(s): US ovidio ast ndl core biopsy LT Accession Number(s): [id number] cc: Humberto Roca MD; Rodger Doe MD [...] coil metallic clip was deposited at the bio psy site. Site 8B: Using sonographic gu idance, sterile technique, and 1% lidocaine without epinephrine for loca l anesthesia, a total of 4 cores were obtained through the targeted area with a 14-gauge biopsy device. At the completion of tissue sampling, a single butterfly metallic clip was deposited at the bio psy site. An appropriate sampl e was obtained. The postprocedure 2- view direct digital mammogram reveals satisfactory positioning of the b iopsy clips. The patient tolerate d the procedure well and, after assuring adequate hemostasis, was disc harged in good condition after reviewing postbiopsy breast care instruct ions. Final pathology results are pending. U S/US breast ndl core biopsy LT IMPRESSION: 1. Uncomplicated sonographically-guided core biopsy of the left breast. The 2-view direct di gital postprocedure mammogram reveals satisfactory positioning of the b iopsy clips. 2. Final pathology r esults are pending. A separate report with final recommendations will be issued once these results are made available. Electronically kodi d by: Fidelina Brandon DO 12/12/2024 11:51 AM EDT Dictated By: Fidelina Brandon DO Signed By: <Electron ically signed by Fidelina Brandon DO in OV> 12/12/24 1151 DD/ 4 TD/TT: 12/12/24929 [employer]: MR breast BI wo/w con Reviewed date:12/30/2024 04:08:59 PM Interpretation: Performing Lab: Notes/Report: [place] [address] Magnetic Resonance Report Signed Patient: Batsheva Greenberg MR#: [id number] : 1960 Acct:[id number] Age/Sex: 64 / F ADM Date: 12/25/24 Loc: HO.MRI Attending Dr: Rodger Doe MD Ordering Physician: Rodger Doe MD Date of Service: 12/25/24 Procedure(s): MR breast BI wo/w con Accession Number(s): [id number] cc: Humberto Roca MD; Rodger Doe MD; [...] OV> 12/26/24 1508 DD/ 1505 TD/TT: 12/25/24 1556 [employer] [place]: [address] [address] Magnetic Resonance Report Signed Patient: Batsheva Greenberg MR#: [id number] : 1960 Acct:[id number] Age/Sex: 64 / F ADM Date: 12/25/24 Loc: .MRI Attending Dr: Rodger Doe MD Ordering Physician: Rodger Doe MD Date of Service: 12/25/24 Procedure(s): MR nolan ast BI wo/w con Accession Number(s): [id number] cc: Humberto Roca MD; Rodger Doe MD; [...] entir e extent of suspicious enhancement. Normal-appearing intramammary lymph [...] OV> 12/26/24 1508 DD/ 1505 TD/TT: 12/25/24 1445 [employer]: Pathology (Not yet reviewed by provider) Interpretation: Performing Lab:[facility], [address] [place] [phone] Notes/Report: -------- -------- Name: Batsheva Greenberg e/Sex: 64/F : 1960 [id number] [id number] Attend Dr: Rdoger Doe MD Re01/08/25 Status : DIS IN Location: [facility] 350-1 Disch: 01/10/25 -------- -------- SPEC : [id number] RECD : 01/08/25-150 STATUS: AMBROCIO BETANCOURT NUM: [id number] FANY: 01/08/25-[address] [facility] [address]: Rodger Doe MD ENTERED: 01/08/25-15 10 SP TYPE: Surgical OTHR DR: Humberto Roca MD ORDERED: Gross Micro L5, IHC, E-cadherin/2 Diagnosis Breast, left, mastectomy: - 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 - Ductal carcinoma i n-situ, nuclear grade 2, with necrosis; margins negative (2.5 cm). - Lobular carcinoma in-situ. - Background biopsy site changes, usual ductal hyperplasia and fibrocystic changes. - Metastatic carcino ma present in two of nine lymph nodes examined. - pT2 N1a (AJCC Stag e 8th ed.) Synoptic Data - Inva sive Breast Cancer Procedure: Mastectom y, simple Laterality: Left Tumor size: 3.1 cm Tumor focality: Unifocal Extent of tumor Skin: Not identified Nipple: Not identified Skeletal muscle: No skeletal muscle identified DCIS: Present Nuclear grade: 2 Extent/EIC positive/negative: Negative LCIS: Present Type of invasive car cinoma: Mixed ductal and lobular Histologic grade (MSBR): 2 Tubule formation score: 2 Nuclear pleomorphism score: 3 Mitotic rate score: 1 LVI: Present Margin, inv tumor: Negative Closest margin: 2.5 cm from superior/anterior margin Margin, DCIS: Negative Closest margin: 2.5 cm from superior/anterior margin Lymph nodes Number examined: 9 [place] nodes: 0 Axillary nodes: 9 Number involved: 2 With macrometastases: 2 With micrometastases: 0 With isolated tumor cells: 0 Extranodal extension : Not identified CONTINUED ON NEXT PAGE -------- -------- Name: Batsheva Greenberg e/Sex: 64/F : 1960 Unit#: [id number] Attend Dr: Rodger Doe MD Re01/08/25 Status : DIS IN Location: [place] [address]-1 Disch: 01/10/25 -------- -------- SPEC : [id number] RECD : 01/08/25-150 STATUS: AMBROCIO BETANCOURT NUM: [id number] FANY: 01/08/25-[address] [facility] [address]: Rodger Doe MD ENTERED: 01/08/25-15 10 SP TYPE: Surgical OTHR DR: Humberto Roca MD ORDERED: Gross Micro L5, IHC, E-cadherin/2 Diagnosis (Continued) Size of largest met. deposit: 7 mm Treatment effect Breast: Not identified Lymph nodes: Not identified TNM: pT2 N1a (AJCC S tage 8th ed.) Ancillary studies: E R positive, MT low positive, HER2 negative (0), low proliferation (see [id number]) Clinical History Left breast invasive carcinoma Microscopic Description Sections have an inv asive carcinoma comprised of cords, nests and tubules along with areas with cribriforming architecture. The tumor cells are medium to large in size, have moderate to abundant amphophi lic cytoplasm and oval/polygonal nuclei with open chromatin; plasmacytoid forms a re seen. Surrounding areas of lobular carcinoma in-situ are present. Focal lymphovascular invasion is identified. E-cadherin immunostain is nonreactive in the foci of LCIS and has irregularly retained immunoreactivity in the invasive tumor cells as well as immunoreacti vity in the foci of DCIS. Background biopsy site changes are present along with apocrine metaplasia, fibrocystic changes and usual ductal hyperplasia. The skin is unremarkable appearing. Material Received Left breast mastectomy Gross Description Received in formalin is a 1100 g, 30.0 x 21.0 x 5.0 cm left mastectomy specimen, oriented to include suture on th e axilla. The anterior surface displays a 25.0 x 6.5 cm ellipse of white grossly unrema rkable skin with a 1.5 x 1.3 x 1.0 cm everted nipple and up to 1.3 cm of surrounding areola. The external surface is inked as follows: anterior surface superior to skin-blue, anterior surface inferior to skin-green and posterior surface-black. The specimen is serially sectioned from medial to lateral and within the outer half of the specimen is a 3.0 x 1.9 x 1.3 cm firm benavidez-white mass, grossly located 2.5 cm from the superior margin, 3.8 cm from the anterior skin and 4.0 cm or greater from the posterior and inferior margins and nipple. Intimately associated with and surrounding the mass is an additional broad are a of dense fibrous tissue with induration and cystic areas, greatest overall dimension to include mass with adjacent fibrocystic tissue is 5.4 cm (superior to inferior). The fibro us tissue measures 2.8 cm from the closest inferior margin. The remainder of the fib rofatty parenchyma consists of yellow lobulated adipose tissue with CONTINUED ON NEXT PAGE -------- -------- Name: Batsheva Greenberg e/Sex: 64/F : 1960 [id number] [id number] Attend Dr: Rodger Doe MD Re01/08/25 Status : DIS IN Location: [facility] 350-1 Disch: 01/10/25 -------- -------- SPEC : [id number] RECD : 01/08/25-1508 STATUS: AMBROCIO BETANCOURT NUM: [id number] FANY: 01/08/25-[address] [facility] [address]: Rodger Doe MD ENTERED: 01/08/25- 10 SP TYPE: Surgical OTHR DR: Humberto Roca MD ORDERED: Gross Micro L5, IHC, E-cadherin/2 Gross Description (Continued) interspersed focally dense fibrous tissue with areas of cysts, however, additional discrete lesions are not lilian sly identified. A few lymph nodes are identified within the lateral- most soft tissue. Section code. A1-3. Mass and assoc iated fibrocystic parenchyma extending inferiorly, one contiguous section A4. Additional secti on of mass and adjacent fibrocystic parenchyma, no margins A5. Superior margin A6. Posterior margin A7. Inferior margin A8. Anterior skin A9. Nipple A10. Upper inner clara drant fibrous tissue A11. Lower inner calra drant fibrous tissue A12. Lower outer clara drant fibrous tissue A13. Upper outer clara drant fibrous tissue A14. One sectioned l ymph node A15-18. Multiple int act lymph nodes A19. One bisected lymph node A20. One bisected ly mph node. (DTL) Time in formalin: 14:21 on 01/08/25. This case was review ed intradepartmentally. Special studies orde red and performed: immunostain for e-cadherin IHC S/NG Disclaimer NOTE: Unless otherwi se stated, all tissue is formalin-fixed and paraffin-embedded. Some or all of the immunohistochemical tests reported herein may have been developed and their performance characte ristics determined by [facility]. They have not been cleared or appr josefa by the U.S. Food and Drug Administration (FDA). However, the FDA has determined that such clearance or approval is not necessary. This laboratory is certified under the Clinical Laboratory Improvement Amendments of 1988 (CLIA) as qualified to perform high comp lexity clinical laboratory testing. Copies To: Humberto Roca MD [address] [place] [address], [address] [place], [place] [id number] CONTINUED ON NEXT PAGE -------- -------- Name: Batsheva Greenberg ge/Sex: 64/F : 1960 Unit#: [id number] Attend Dr: Rodegr Doe MD Re01/08/25 Status : DIS IN Location: [facility] 350-1 Disch: 01/10/25 -------- -------- SPEC : [id number] RECD : 01/08/25-7335 STATUS: AMBROCIO BETANCOURT NUM: [id number] FANY: 01/08/25-[address] [facility] [address]: Rodger Doe MD ENTERED: 01/08/25-15 10 SP TYPE: Surgical OTHR DR: Humberto Roca MD ORDERED: Gross Micro L5, IHC, E-cadherin/2 Copies To: (Continued) Rodger Doe MD [facility] [address] [place] [id number] -------- -------- Signed (si gnature on file) Bry Charles MD 01/15/25 1303 -------- -------- END OF REPORT Type and Screen Reviewed date:01/10/2025 02:53:02 PM Interpretation: Performing Lab:[facility], [address] [place] [phone] Notes/Report: Blood Type OP Antibody Screen NEGATIVE Complete Blood Count Auto Di ff Reviewed date:01/10/2025 02:53:02 PM Interpretation: Performing Lab:[facility], [address] [place] [phone] Notes/Report: White Blood Count 12.1 4.8-10.8 X10*3/uL Red Blood Count 3.78 4.20-5.50 X10*6/uL Hemoglobin 11.9 12.0-16.0 g/dl Hematocrit 35.1 37.0-47.0 % Mean Corpuscular Volume 92.9 80.0-98.0 fL Mean Corpuscular Hemoglobin 31.5 27.0-33.0 pg Mean Corpuscular HGB Conc 33.9 31.0-35.0 g/dl Red Cell Distribution Width 14.3 11.0-16.0 % Platelet Count 302 160-400 X10*3/uL Mean Platelet Volume 9.3 9.4-12.3 fL Neutrophils Percent Auto 78.3 45-73 % Imm Gran Pct Auto 0.4 0.0-0.4 % Lymphocytes Percent Auto 13.2 20-40 % Monocytes Percent Auto 8.0 2-11 % Eosinophils Percent Auto 0.0 0-4 % Basophils Percent Auto 0.1 0-2 % NRBC Pct Auto 0.0 0.0-0.2 /100WBC Neutrophils Absolute Auto 9.5 2.0-8.3 x10*3/uL Imm Gran Abs Auto 0.05 0.00-0.03 X10*3/uL Lymphocytes Absolute Auto 1.6 1.2-4.9 X10*3/uL Monocytes Absolute Auto 1.0 0.1-1.2 X10*3/uL Eosinophils Absolute Auto 0.0 0.0-0.4 X10*3/uL Basophils Absolute Auto 0.0 0.0-0.2 X10*3/uL NRBC Abs Auto 0.000 0.0-0.012 X10*3/uL Basic Metabolic Panel Reviewed date:01/10/2025 02:53:02 PM Interpretation: Performing Lab:[facility], [address] [place] [phone] Notes/Report: Sodium 139 135-145 mmol/L Potassium 4.5 3.3-5.1 mmol/L Chloride 103 96-108 mmol/L Carbon Dioxide 28 22-29 mmol/L Anion Gap 13 12-20 Blood Urea Nitrogen 9 9-16 mg/dL Creatinine 0.65 0.5-1.4 mg/dL Creatinine Clr Calc Pharmacy 85.3 Provided height and weight: 160.02 cm, 78.1 kg. eGFR (calculated from the MDRD study equation) and eCrCl (calculated from the Cockcroft-Gault equation) are based on different parameters and may not yield comparable results. If eCrCl result is absurd, please check patient's height/weight. Estimated Glomerular Filt Rate > 60 Chronic Kidney Disease: Estimated GFR < 60 mL/min/1.73m2 Severe Kidney Disease: Estimated GFR < 15 mL/min/1.73m2 Glucose Random 149 60-115 mg/dL Calcium 9.1 8.4-10.2 mg/dL Reason For Referral No Information Medications Medication [...] Problem Status W/U Status Risk Notes Problem 1807476 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 She has a plan for prevention of relapse in times of stress. Problem 614564091 Overweight (E66.3) Active confirmed She has lost 9 more pounds. She is no longer obese. We discussed her weight loss strategy today. We reviewed her diet and nutrition today. Problem 857998154 Malignant neoplasm of upper-outer quadrant of right female breast (C50.411) Active confirmed There is no sign of a new primary are of returns today. Problem 960047112 Use of tamoxifen (Nolvadex) (Z79.810) Active confirmed She reports being up-to-date with ADMINISTRATIVE SUPPORT ASSISTANT and has had no vaginal bleeding. Problem 521589505 History of appendectomy (Z90.49) Active confirmed Problem 231527027 Status post righ t breast reconstruction (Z98.89) [...] Provider Diagnosis Humberto Roca III, MD [address] [place] [address] DR [place], [place] [phone] 02/21/2024 Humberto Roca Former smoker Z87.89 1 ; Malignant neoplasm of upper-outer quadrant of right female breast C50.411 ; Overweight E66.3 ; Status post right breast reconstruction Z98.89 and Use of tamoxifen (Nolvadex) Z79.810 Humberto Roca III, MD [address] [place] [address] [place] [phone] 12/18/2024 Humberto Roca III, MD [address] [place] [address] [place] [phone] 12/31/2024 Humberto Roca Assessments Encounter Date Diagnosis [...] - Z79.810) She reports being up-to-date with ADMINISTRATIVE SUPPORT ASSISTANT and has had no vaginal bleeding. Plan Of Treatment Pending Test Test Name Order Date BONE DENSITY DEXA 06/05/2019 MAMMOGRAM DIGITAL SCREEN LEFT UNI 2019 MAMMOGRAM DIGITAL SCREEN LEFT UNI 2022 Pathology 01/08/2025 Next Appt Details Provider Name:Humberto Roca, 02/20/2025 10:30:00 AM, [address] [place] [address] GATO RASMUSSEN, [place], [phone], Insurance Providers Payer Name Payer Address Payer Phone Subscriber Number Group Number Insured Name Patient Relationship to Insured Coverage Start Date Coverage End Date [facility] [address] [address] [place] [phone] [id number] Batsheva Greenberg Self - patient is the insured Medical (General) History Medical History History ICD Code [id number] breast cancer last mammogram 05/2015 @ [facility] [place] stop 04/2019 Surgical History Surgery Date(Month/Year) full dental extractions 2018 left breast reduction right breast reconstruction appendectomy 2 caesarean sections
== END 2025-01-17 11:34 | disposition home or self-care (01) ==
LOC: HO.HGS 10:59
PROVIDERS: PCP Internal Medicine Medical Oncology; Visit Provider Surgery
DX: Z90.12 Acquired absence of left breast and nipple (principal)
CPT/HCPCS: 99024

== ENCOUNTER → 2025-01-17 10:58 | Outpatient (BNVA) | payer OTHER, SELFPAY | PROVIDERS: PCP Internal Medicine Medical Oncology; Visit Provider Surgery | DX: C50.912 Malignant neoplasm of unspecified site of left female breast (principal); Z85.3 Personal history of malignant neoplasm of breast; Z87.891 Personal history of nicotine dependence; Z98.890 Other specified postprocedural states; Z48.01 Encounter for change or removal of surgical wound dressing; Z17.0 Estrogen receptor positive status [ER+]; Z17.21 Progesterone receptor positive status; Z17.421 Hormone receptor negative with human epidermal growth factor receptor 2 negative status; Z13.89 Encounter for screening for other disorder ==

== ENCOUNTER 2025-01-24 10:58 | Outpatient (AMB) | payer OTHER, SELFPAY ==
--- OUTSIDE RECORDS SUMMARY | 2024-02-21 06:00 | XMS_ITS ---
Author Organization Humberto Roca III, MD Address [address] [place] [address] [place] [address] Care Team Providers Care Paraeducator Name Role Phone Oswald Murdock MD Primary Care Provider Humberto Franks [phone] Allergies Allergen (clinical drug ingredient) Drug/Non Drug [...] Date Provider Diagnosis Humberto Roca III, MD [address] [place] [address] [place] [address] 02/21/2024 Humberto Roca Former smoker Z87.89 1 [...] - Z79.810) She reports being up-to-date with APPLIQUER ZIGZAG and has had no vaginal bleeding. Plan Of Treatment Medication Medication Name Sig Start Date Stop Date Notes Gabapentin 300 MG 1 capsule Orally Once a day Next Appt Details Follow Up: 1 Year, Reason: o v no tests Provider Name:Humberto Roca, 02/20/2025 10:30:00 AM, [address] [place] [address] G[address]EN [address] [place] [address], [phone], Progress Notes * Chaya YANGSheriOB:1960 (63 yo F)Acc No.[id number]:02/21/2024 Progress Notes Patient: Batsheva TERRY Provider: Maria T Roca MD :1960 A ge:63 Y S ex:Female Date:02/21/2024 Address:[address] [place] [id number] Pcp:Oswald Murdock MD Subjective: * Chief Complaints: [...] E x-cigarette smoker S he works at [employer]. She has been for 10 years to George. They have 2 children. She was born in [place], [place]. * Medications: T akingGabapentin 300 MG [...] N otes :She reports being up-to-date with APPLIQUER ZIGZAG and has had no vaginal bleeding. Plan: [...] 1 Generated for Radha mcintosh/Juanis/Keyshaitting on: 0 01/24/2025 12:43 PM EDT History and Physical Notes * HPI (History of Present Illness) Category Sub-Category Detail Notes COVID-19 Screening Questions Have you had any new onset fever, chills, cough, congestion, sore throat, shortness of breath, muscle aches?: No Have you been exposed to the virus with n the last 10 days?: No Have you travelled internationally in [facility] last 10 days?: No Have you [...]
--- OUTSIDE RECORDS SUMMARY | 2024-12-18 09:09 | XMS_ITS ---
Author Organization Humberto Roca III, MD Address [address] [place] [address] [place] [address] Care Team Providers Care Shoe Salesperson Name Role Phone Oswald Murdock MD Primary Care Provider Humberto Franks [phone] REASON FOR VISIT pathology results Social History Sex Assigned At : Social History Observation Description Sex Assigned At Female Encounters Encounter Location Date Provider Diagnosis Humberto Roca III, MD [address] [place] [address] [address] [facility] [place] [facility] [place] [address] 12/18/2024 Humberto Roca Plan Of Treatment Next Appt Details Provider Name:Humberto Roca, 02/20/2025 10:30:00 AM, [address] [place] [address] [place], [address], Progress Notes * Zan YANGOB:1960 (64 yo F)Acc No.[id number]:12/18/2024 Patient: Batsheva TERRY :1960 A ge:64 Y S ex:Female Address:[address] [place], [place] [address] [address] * true * Date: Generated for Printi ng/Faxing/eTransmitting on: 0 01/24/2025 12:44 PM EDT
--- OUTSIDE RECORDS SUMMARY | 2024-12-31 09:48 | XMS_ITS ---
Author Organization Humberto Roca III, MD Address [address] [place] [address] [place] [address] Care Team Providers Care Shampoo Technician Name Role Phone Oswald Murdock MD Primary Care Provider Humberto Franks [phone] REASON FOR VISIT update Social History Sex Assigned At : Social History Observation Description Sex Assigned At Female Encounters Encounter Location Date Provider Diagnosis Humberto Roca III, MD [address] [place] [address] [address] [facility] [place] [address] 12/31/2024 Humberto Roca Plan Of Treatment Next Appt Details Provider Name:Humberto Roca, 02/20/2025 10:30:00 AM, [address] [place] [address] [place], [address], Progress Notes * CELIA ChayaSheriOB:1960 (64 yo F)Acc No.[id number]:12/31/2024 Patient: Batsheva TERRY :1960 A ge:64 Y S ex:Female Address:[address] [place], [place] [address] [address] * true * Date: Generated for Printi ng/Faxing/eTransmitting on: 0 01/24/2025 12:43 PM EDT
--- OUTSIDE RECORDS SUMMARY | 2025-01-08 13:00 | XMS_ITS ---
Author Organization Humberto Roca III, MD Address [address] [place] [address] [place] [address] Care Team Providers Care [employer] Officer Name Role Phone Oswald Murdock MD Primary Care Provider Humberto Franks [phone] REASON FOR VISIT New Concern Social History Sex Assigned At : Social History Observation Description Sex Assigned At Female Encounters Encounter Location Date Provider Diagnosis Humberto Roca III, MD [address] [place] [address] [address] [place] [place] [address] 01/08/2025 Humberto Roca Plan Of Treatment Next Appt Details Provider Name:Humberto Roca, 02/20/2025 10:30:00 AM, [address] [place] [address] [place], [address], Progress Notes * Chaya YANGeDOB:1960 (64 yo F)Acc No.[id number]:01/08/2025 Progress Notes Patient: Batsheva TERRY Provider: Maria T Roca MD :1960 A ge:64 Y S ex:Female Date:01/08/2025 Address:[address] [place], [place] [address] [id number] Pcp:Oswald Murdock MD Subjective: * Chief Complaints: [...] 01/08/2025 Generated for Radha mcintosh/Juanis/Elvis on: 0 01/24/2025 12:43 PM EDT
--- OUTSIDE RECORDS SUMMARY | 2025-01-14 10:30 | XMS_ITS ---
Author Organization Humberto Roca III, MD Address [address] [place] [address] [place] [address] Care Team Providers Care Campaign Specialist Name Role Phone Oswald Murdock MD Primary Care Provider Humberto Franks [phone] Allergies Allergen (clinical drug ingredient) Drug/Non Drug [...] Date Provider Diagnosis Humberto Roca III, MD [address] [place] [address] [place] [address] 01/14/2025 Humberto Roca Plan Of Treatment Medication Medication Name Sig Start Date Stop Date Notes Gabapentin 300 MG 1 capsule Orally Once a day Next Appt Details Provider Name:Humberto Roca, 02/20/2025 10:30:00 AM, [address] [place] [address] [place] [facility], [address], Progress Notes * Zan YANGOB:1960 (64 yo F)Acc No.[id number]:01/14/2025 Progress Notes Patient: Batsheva TERRY Provider: Maria T Roca MD :1960 A ge:64 Y S ex:Female Date:01/14/2025 Address:[address] [place], [place] [address] [id number] Pcp:Oswald Murdock MD Subjective: * Chief Complaints: [...] 3P2AB1, Breast cancer, last mammogram 05/2015 @ [facility], [place] stop 04/2019. * Surgical History: [...] E x-cigarette smoker S he works at [employer]. She has been for 10 years to George. They have 2 children. She was born in [place], [place]. * Medications: T aking Gabapentin 300 [...] Date: 01/14/2025 Generated for Radha mcintosh/Juanis/Elvis on: 01/24/2025 12:44 PM EDT History and Physical Notes * [...]
--- NOTE | 2025-01-24 11:19 | A.OFFVIS_ITS ---
Vital Signs 01/24/25 11:30 Height 5 ft 3 in Weight 167 lb BMI 29.6 BP 130/88 Blood Pressure Location Lt brachial Position Sitting Pulse 101 H Intake Visit Reasons: 1wk S/P Lt modified radical mastectomy Intake Note: Patient is seen in office for one week follow up visit, post left breast mastectomy. Pt c/o: here for drain removal, swelling in the arm Drawing Supervisor Required: No Senior Manufacturing Technician: Senior Manufacturing Technician Present Accompanied by: Self / Same As Patient Allergies adhesive Allergy (Unknown, Uncoded 01/24/25 11:33) rash percocet Allergy (Unknown, Uncoded 01/24/25 11:33) nausea/vomiting HPI Comments Details: 64-year-old female patient, former patient of Dr. Braswell returning for wound check following left breast mastectomy. She has a history of infiltrating lobular carcinoma of the right breast and subsequently underwent a right modified radical mastectomy in March 2009. Pathology revealed 2 foci of infiltrating lobular carcinoma, 8 cm and 1.5 cm, grade 2, ER/LA positive, HER2 Yohan negative. Two of 10 sentinel nodes were positive for malignancy. TNM staging: T3 N1 M0, stage III. She received 4 cycles of dose dense AC followed by 4 cycles of Taxotere and chest wall radiation. This was followed by tamoxifen. She underwent tram flap reconstruction of the right breast (Dr. Sal at [facility]) she also underwent left breast reduction mammoplasty. Patient underwent an ultrasound-guided core biopsy of the left breast on 12/12/2024 this revealed invasive carcinoma with lobular and ductal features located in 2 lesions, ER positive, LA positive, HER2 Yohan negative. She was evaluated by Dr. Trinh preoperatively and the decision made to proceed with left breast mastectomy. On 01/08/2025 she underwent a left breast modified radical mastectomy. Pathology revealed invasive carcinoma with ductal and lobular features, 3.1 cm in diameter with negative margins. Metastatic carcinoma is noted into of 9 axillary lymph nodes pT2 N1a (AJCC Stage 8th ed.). She tolerated the procedure well and returns today for wound check and drain removal. Overall she feels improved in his ready to have the drains removed. She will be following up with Dr. Trinh to determine if adjuvant chemotherapy is recommended. [facility] Medical History HTN (hypertension) Invasive lobular carcinoma of breast, stage 3 Surgical History S/P left mastectomy History of 2 sections History of appendectomy History of mastectomy History of right breast biopsy Family History Mother HTN (hypertension) Social History Household Members: Spouse Housing: House Are you a primary respiratory care instructor to a significant other at home: No Do you presently have visiting nurse or other home services: No Alcohol intake: current Alcohol intake frequency: holidays/special occasions only Patient Tobacco Use Status: Former Tobacco user Tobacco use type: Cigarette Use of substances other than those prescribed or required for medical reasons: No Have you been hit, kicked, punched, or otherwise hurt by someone within the past year? If so, by whom?: No Do you feel safe in your current relationship?: Yes Do you have thoughts of harming others: None Do you have a plan to hurt others: No Plan service: No Current occupational status: employed and unemployed Female Reproductive History Menstrual Age of Menarche: 13 Physical Exam Vital Signs: Last Vital Signs Pulse 101 H 01/24/25 11:30 BP 130/88 01/24/25 11:30 BMI result Body Mass Index 29.6 Const General: comfortable Nutritional Appearance: well nourished Orientation/consciousness: patient oriented x3 Limitations: no limitations Chest Other: Well-healed mastectomy incision on the left side with some swelling in the lower flap. BHASKAR with scant serous drainage x2. Both drains were removed today and dry sterile dressings applied. Resp Effort & Inspection: normal respiratory effort, no audible wheezes, no cough and no respiratory distress Skin Other: Warm, dry Neuro Other: Mobility Assessment: 1. 3 meter assessment time (seconds) 5 2. Gait observations: Normal balance and gait General: patient oriented x3 Extrem General: No edema Assessment & Plan Assessment & Plan (1) Invasive lobular carcinoma of breast, stage 3: Code(s): C50.919 - Malignant neoplasm of unspecified site of unspecified female breast Category: Medical Qualifiers: Laterality: left Qualified Code(s): C50.912 - Malignant neoplasm of unspecified site of left female breast Plan Patient returns following left breast modified radical mastectomy for left breast invasive carcinoma with ductal and lobular features. Drainage has decreased significantly therefore the both Frankie-Diallo drains were removed today. Wounds are clean and intact with some swelling in the lower flap therefore I have asked her to return in approximately 2 weeks for wound examination. She is welcome to call sooner for any new concerns. Medications: Refilled oxycodone Partial Fill upon patient request. 5 mg PO Q6H PRN 20 tabs 0RF pain (scale score 7-10) Coding Level of Care Code Global (25427) Diagnoses Invasive lobular carcinoma of left breast, stage 3 C50.912 Laterality: left
[2025-01-24 11:30] VITALS: BP 130/88; PULSE 101; BMI 29.6
--- OUTSIDE RECORDS SUMMARY | 2025-01-24 12:44 | XMS_ITS | Patient Health Record ---
Author Organization Humberto Roca III, MD Address [address] [place] [address] [place] [address] Care Team Providers Care Casino Floor Person Name Role Phone Oswald Murdock MD Primary Care Provider Humberto Franks [phone] Allergies Allergen (clinical drug ingredient) Drug/Non Drug Allergy documented on EMR Reaction Allergy Type Onset Date Status Seasonale Unknown Drug Allergy Active Results Component Value Reference Range Notes MM tomosynthesis screening L T Reviewed date:10/13/2024 08:03:09 PM Interpretation: Performing Lab: Notes/Report: [facility]'[address] [place] [address] Mammography Report Signed Patient: Batsheva Greenberg MR#: [id number] : 1960 Acct:[id number] Age/Sex: 64 / F ADM Date: 10/03/24 Loc: HO.MAMMO Attending Dr: Humberto Roca MD Ordering Physician: Humberto Roca MD Results: 0Incompl ete: Needs Additional Imaging Evaluation Date of Service: 10/03/24 Follow Up: Additional Imagi ng Procedure(s): MM tomosynthesis screening Accession Number(s): [id number] cc: Humberto Roca MD EXAMINATION: MM SCREENING [...] 10/11/24 1650 DD/ 0815 TD/TT: 10/03/24 0830 Injection Machine Operator: [facility] [address] [place] [address] Mammography Report Signed Patient: Batsheva Greenberg MR#: [id number] : 1960 Acct:[id number] Age/Sex: 64 / F ADM Date: 10/03/24 Loc: HO.MAMMO Attending Dr: Humberto Roca MD Ordering Physician: Humberto Roca MD Results: 0Incompl ete: Needs Additiona l Imaging Evaluation Date of Service: Follow Up: Additional Imagi ng Procedure(s): MM tomosynthesis screening LT Accession Number(s): [id number] cc: Humberto Roca MD EXAMINATION: MM SCREENING [...] 10/11/24 1650 DD/ 0815 TD/TT: 10/03/24 0830 Injection Machine Operator: PATEL tomosynthesis added views L Reviewed date:12/22/2024 08:09:11 PM Interpretation: Performing Lab: Notes/Report: [facility] [address] [place] [address] Mammography Report Signed Patient: Batsheva Greenberg MR#: [id number] : 1960 Acct:[id number] Age/Sex: 64 / F ADM Date: 12/02/24 Loc: HO.MAMMO Attending Dr: Humberto Roca MD Ordering Physician: Humberto Roca MD Results: 4Suspici ous Finding Date of Service: 12/02/24 Follow Up: Biopsy Recommend ed Procedure(s): MM tomosynthesis added views L Accession Number(s): [id number] cc: Humberto Roca MD EXAMINATION: MM DIAGNOSTIC [...] 12/02/24 1044 DD/ 0945 TD/TT: 12/02/24 1010 Injection Machine Operator: [facility] [address] [place] [address] [place], [place] [address] Mammography Report Signed Patient: Batsheva Greenberg MR#: [id number] : 1960 Acct:[id number] Age/Sex: 64 / F ADM Date: 12/02/24 Loc: HO.MAMMO Attending Dr: Humberto Roca MD Ordering Physician: Humberto Roca MD Results: 4Suspici ous Finding Date of Service: Follow Up: Biopsy Recommend ed Procedure(s): MM tomosynthesis added views L Accession Number(s): [id number] cc: Humberto Roca MD EXAMINATION: MM DIAGNOSTIC [...] 12/02/24 1044 DD/ 0945 TD/TT: 12/02/24 1010 Injection Machine Operator: US breast LT limited mamm on ly Reviewed date:12/22/2024 08:09:11 PM Interpretation: Performing Lab: Notes/Report: [facility] [address] [place], [place] [address] Ultrasound Report Signed Patient: Batsheva Greenberg MR#: [id number] : 1960 Acct:[id number] Age/Sex: 64 / F ADM Date: 12/02/24 Loc: HO.MAMMO Attending Dr: Humberto Roca MD Ordering Physician: Humberto Roca MD Date of Service: 12/02/24 Procedure(s): US breast LT limited mamm only Accession Number(s): [id number] cc: Humberto Roca MD EXAMINATION: MM DIAGNOSTIC [...] 12/02/24 1044 DD/ 0944 TD/TT: 12/02/24 1022 Injection Machine Operator: [facility] [address] [place] [address] Ultrasound Report Signed Patient: Batsheva Greenberg MR#: [id number] : 1960 Acct:[id number] Age/Sex: 64 / F ADM Date: 12/02/24 Loc: HO.MAMMO Attending Dr: Humberto Roca MD Ordering Physician: Humberto Roca MD Date of Service: 12/02/24 Procedure(s): US ovidio ast LT limited mamm only Accession Number(s): [id number] cc: Humberto Roca MD EXAMINATION: MM DIAGNOSTIC [...] 12/02/24 1044 DD/ 0944 TD/TT: 12/02/24 1022 Injection Machine Operator: Pathology Reviewed date:01/10/2025 02:53:02 PM Interpretation: Performing Lab:[facility], [address] [place] [phone] Notes/Report: -------- -------- Name: Batsheva Greenberg John e/Sex: 64/F : 1960 [id number] [id number] Attend Dr: Rodger Doe MD Re12/12/24 Status : DEP REF Location: .MAMMO Disch: -------- -------- SPEC : [id number] RECD : 12/12/24 STATUS: AMBROCIO BETANCOURT NUM: [id number] FANY: 12/12/24 [facility] DR: Fidelina Brandon DO ENTERED: 12/12/24-10 15 SP TYPE: Surgical OTHR DR: Humberto Roca MD,Rodger Arriaga MD ORDERED: HE Stain/4, Gross Micro L4/2, Cytokeratin/2, ER/2, TN/2, IHC/2, Add. immunos/6, IHC ER/TN/Her2N/8, E-cadherin/2, Ki-67/2, p63/2, SMM/2, IAE4LXT/2 COMMENTS: Part A: As per the specimen [...] Batsheva Greenberg ge/Sex: 64/F : 1960 Unit#: [id number] Attend Dr: Rodger Doe MD Re12/12/24 Status : DEP REF Location: HO.MAMMO Disch: -------- -------- SPEC : [id number] RECD : 12/12/24-1010 STATUS: AMBROCIO BETANCOURT NUM: [id number] FANY: 12/12/24-912 [facility] DR: Fidelina Brandon DO ENTERED: 12/12/24- 15 SP TYPE: Surgical OTHR DR: Humberto Roca MD, John J MD ORDERED: HE Stain/4, Gross Micro L4/2, Cytokeratin/2, ER/2, TN/2, IHC/2, Add. immunos/6, IHC ER/TN/Her2N/8, E-cadherin/2, Ki-67/2, p63/2, SMM/2, HLN7BUB/2 COMMENTS: Part A: As per the specimen requisition slip the specimen is collected at 13 and placed in formalin at 0922. Part B: As per the [facility] requisition slip the specimen is [...] YariBatshevakevin Lopez e/Sex: 64/F : 1960 Unit#: [id number] Attend Dr: Rodger Doe MD Re12/12/24 Status : DEP REF Location: HO.MAMMO Disch: -------- -------- SPEC : [id number] RECD : 12/12/24-1010 STATUS: AMBRCOIO BETANCOURT NUM: [id number] FANY: 12/12/24-912 [facility] DR: Fidelina Brandon DO ENTERED: 12/12/24- 15 SP TYPE: Surgical OTHR DR: Humberto Roca MD, John J MD ORDERED: HE Stain/4, Gross Micro L4/2, Cytokeratin/2, ER/2, TN/2, IHC/2, Add. immunos/6, IHC ER/TN/Her2N/8, E-cadherin/2, Ki-67/2, p63/2, SMM/2, CLR6BLJ/2 COMMENTS: Part A: As per the specimen [...] Dual Link System-HRP. Progesterone recepto r: Clone NhP923; yeppt Mach 4 detection system. Her-2/trudi immunohistochemistry performed in accordance with ASCO/CAP recommendations (2007) and update (2013). Hercep Test CONTINUED ON NEXT PAGE -------- -------- Name: Batsheva Greenberg John e/Sex: 64/F : 1960 Unit#: [id number] Attend Dr: Rodger Doe MD Re12/12/24 Status : DEP [facility] -------- SPEC : [id number] RECD : 12/12/24-101 STATUS: AMBROCIO BETANCOURT NUM: [id number] FANY: 12/12/24-[address]: Fidelina Brandon DO ENTERED: 12/12/24-10 15 SP TYPE: Surgical OTHR DR: Humberto Roca MD, John J MD ORDERED: HE Stain/4, Gross Micro L4/2, Cytokeratin/2, ER/2, TN/2, IHC/2, Add. immunos/6, IHC ER/TN/Her2N/8, E-cadherin/2, Ki-67/2, p63/2, SMM/2, TXD4WOE/2 COMMENTS: Part A: As per the specimen requisition slip the specimen is collected at 0913 and placed in formalin at 0922. Part B: As per the s pecimen requisition slip the specimen is collected at 0913 and placed in formalin at 0924. Gross Description (Continued) Detection system: Po lymer type Scoring criteria: For ER/TN and Her-2/ trudi: All internal (if present) and external controls react appropriately. ER and TN immunostai ns are scored as Positive (> [...] Arch of Pathol Lab Med, 142, 2018: 2912-6827. Verito KH, Luisito ME, et al. Estrogen and Progesterone Receptor Testing in Breast Cancer: ASCO/CAP Guideline U pdate. Arch of Pathol Lab Med, 144 2020: 545-563. Pari N, Monroe P , et al. Adjuvant abemaciclib combined with endocrine therapy for high- risk early breast ca ncer: updated efficacy and Ki-67 analysis from the [facility] study. Shantelle Oncol. 2020;32(12):1878-3688. This case was review ed intradepartmentally; results were communicated to Drs. Doe and Aleksandr on 12/16/2024. CONTINUED ON NEXT PAGE -------- -------- Name: Batsheva Greenberg John e/Sex: 64/F : 1960 Unit#: [id number] Attend Dr: Rodger Doe MD Re12/12/24 Status : DEP REF Location: .MAMMO Disch: -------- -------- SPEC : [id number] RECD : 12/12/241011 STATUS: AMBROCIO BETANCOURT NUM: [id number] FANY: 12/12/24 [facility] [address]: Fidelina Brandon DO ENTERED: 12/12/24- 15 SP TYPE: Surgical OTHR DR: Humberto Roca MD, John J MD ORDERED: HE Stain/4, Gross Micro L4/2, Cytokeratin/2, ER/2, TN/2, IHC/2, Add. immunos/6, IHC ER/TN/Her2N/8, E-cadherin/2, Ki-67/2, p63/2, SMM/2, CWE6QRP/2 COMMENTS: Part A: As per the specimen requisition slip the specimen is collected at 0913 and placed in formalin at 0922. Part B: As per the s pecimen requisition slip the specimen is collected at 0913 and placed in formalin at 0924. Gross Description (Continued) Special studies orde red and performed: Immunostains for E-cadherin, pancytokeratin, p63, smooth muscle myosin , ER, TN, HER2 and Ki 67 (A and B) IHC S/NG Disclaimer NOTE: Unless otherwi se stated, all tissue is formalin-fixed and paraffin-embedded. Some or all of the immunohistochemical tests reported herein may have been developed and their performance characte ristics determined by [facility]. They have not been cleared or appr josefa by the U.S. Food and Drug Administration (FDA). However, the FDA has determined that such clearance or approval is not necessary. This laboratory is certified under the Clinical Laboratory Improvement Amendments of 1988 (CLIA) as qualified to perform high comp lexity clinical laboratory testing. Copies To: Humberto Roca MD [address] [place] [address], [address] [place] [address] Rodger Doe MD [facility] [address] [place] [id number] Fidelina Brandon DO [address] [place] [address] -------- -------- Signed (si gnature on file) Bry Charles MD 12/16/24 1638 -------- -------- END OF REPORT MM tomosynthesis diagnostic LT Reviewed date:12/22/2024 08:09:10 PM Interpretation: Performing Lab: Notes/Report: [facility] [address] [place] [address] Mammography Report Signed with Addnya Patient: Batsheva Greenberg MR#: [id number] : 1960 Acct:[id number] Age/Sex: 64 / F ADM Date: 12/12/24 Loc: BRANDI Attending Dr: Rodger Doe MD Ordering Physician: Rodger Doe MD Results: Date of Service: 12/12/24 Follow Up: Procedure(s): MM tomosynthesis diagnostic LT Accession Number(s): [id number] cc: Humberto Roca MD; Rodger Doe MD [...] OV> 12/12/24 1151 DD/ 4 TD/TT: 12/12/24929 Injection Machine Operator: [facility] [address] [place] [address] [place] [address] Mammography Report Signed with Addenda Patient: Batsheva Greenberg MR#: [id number] : 1960 Acct:[id number] Age/Sex: 64 / F ADM Date: 12/12/24 Loc: HO.MAMMO Attending Dr: Rodger Doe MD Ordering Physician: Rodger Doe MD Results: Date of Service: Follow Up: Procedure(s): MM tomosynthesis diagnostic LT Accession Number(s): [id number] cc: Humberto Roca MD; Rodger Doe MD [...] OV> 12/12/24 1151 DD/ 0905 TD/TT: 12/12/24929 Injection Machine Operator: breast ndl core bio ea ad d Reviewed date:12/22/2024 08:09:10 PM Interpretation: Performing Lab: Notes/Report: [facility] [address] [place], [place] [address] Ultrasound Report Signed with Addnya Patient: Batsheva Greenberg MR#: [id number] : 1960 Acct:[id number] Age/Sex: 64 / F ADM Date: 12/12/24 Loc: HO.MAMMO Attending Dr: Rodger Doe MD Ordering Physician: Rodger Doe MD Date of Service: 12/12/24 Procedure(s): US breast ndl core bio ea add Accession Number(s): [id number] cc: Humberto Roca MD; Rodger Doe MD [...] 12/12/24 1151 DD/ 0905 TD/TT: 12/12/24 09 Injection Machine Operator: [facility] [address] [place] [address] Ultrasound Report Signed with Addenda Patient: Batsheva Greenberg MR#: [id number] : 1960 Acct:[id number] Age/Sex: 64 / F ADM Date: 12/12/24 Loc: MAMMO Attending Dr: Rodger Doe MD Ordering Physician: Rodger Doe MD Date of Service: 12/12/24 Procedure(s): US ovidio ast ndl core bio ea add Accession Number(s): [id number] cc: Humberto Roca MD; Rodger Doe MD [...] instruct ions. Final pathology results are pending. [facility]/ breast ndl core bio ea add IMPRESSION: [...] in OV> 12/12/24 1151 DD/ TD/TT: 12/12/24929 Injection Machine Operator: US breast ndl core biopsy LT Reviewed date:12/22/2024 08:09:10 PM Interpretation: Performing Lab: Notes/Report: [facility] [address] [place] [address] Ultrasound Report Signed with Addenda Patient: Batsheva Greenberg MR#: [id number] : 1960 Acct:[id number] Age/Sex: 64 / F ADM Date: 12/12/24 Loc: BRANDI Attending Dr: Rodger Doe MD Ordering Physician: Rodger Doe MD Date of Service: 12/12/24 Procedure(s): US breast ndl core biopsy LT Accession Number(s): [id number] cc: Humberto Roca MD; Rodger Doe MD [...] OV> 12/12/24 1151 DD/ 4 TD/TT: 12/12/24929 Injection Machine Operator: [facility] [address] [place] [address] Ultrasound Report Signed with Addenda Patient: Batsheva Greenberg MR#: [id number] : 1960 Acct:[id number] Age/Sex: 64 / F ADM Date: 12/12/24 Loc: HO.MAMMO Attending Dr: Rodger Doe MD Ordering Physician: Rodger Doe MD Date of Service: 12/12/24 Procedure(s): US ovidio ast ndl core biopsy LT Accession Number(s): [id number] cc: Humberto Roca MD; Rodger Doe MD [...] OV> 12/12/24 1151 DD/ 4 TD/TT: 12/12/24929 Injection Machine Operator: MR breast BI wo/w con Reviewed date:12/30/2024 04:08:59 PM Interpretation: Performing Lab: Notes/Report: [place] [address] Magnetic Resonance Report Signed Patient: Batsheva Greenberg MR#: [id number] : 1960 Acct:[id number] Age/Sex: 64 / F ADM Date: 12/25/24 Loc: HO.MRI Attending Dr: Rodger Doe MD Ordering Physician: Rodger Doe MD Date of Service: 12/25/24 Procedure(s): MR breast BI wo/w con Accession Number(s): [id number] cc: Humberto Roca MD; Rodger Doe MD; [...] 12/26/2024 03:08 PM EDT Dictated By: Fidelina Brandno DO Signed By: <Electronically signed by Fidelina Brandon DO in OV> 12/26/24 1508 DD/ 1505 TD/TT: 12/25/24 1553 Injection Machine Operator: [address] [address] Magnetic Resonance Report Signed Patient: Batsheva Greenberg MR#: [id number] : 1960 Acct:[id number] Age/Sex: 64 / F ADM Date: 12/25/24 Loc: .MRI Attending Dr: Rodger Doe MD Ordering Physician: Rodger Doe MD Date of Service: 12/25/24 Procedure(s): MR nolan ast BI wo/w con Accession Number(s): [id number] cc: Humberto Roca MD; Rodger Doe MD; [...] OV> 12/26/24 1508 DD/ 1505 TD/TT: 12/25/24 6337 Injection Machine Operator: Pathology (Not yet reviewed by provider) Interpretation: Performing Lab:[facility], [address] [place] [phone] Notes/Report: -------- -------- Name: Batsheva Greenberg e/Sex: 64/F : 1960 [id number]#: [id number] Attend Dr: Rodger Doe MD Re01/08/25 Status : DIS IN Location: [facility] 350-1 Disch: 01/10/25 -------- -------- SPEC : [id number] RECD : 01/08/25 STATUS: AMBROCIO BETANCOURT NUM: [id number] FANY: 01/08/25-1421 [facility] DR: Rodger Doe MD ENTERED: 01/08/25- 10 SP TYPE: Surgical OTHR DR: Humberto Roca MD ORDERED: Gross Micro L6, IHC, E-cadherin/2 THIS IS A CORRECT ED REPORT 01/22/25 This is a corrected report. Any previous version s are stored internally and are available if necessary. Diagnosis Breast, left, mastectomy: - Invasive carcinoma [...] superior/anterior margin Lymph nodes Number examined: 9 [place] nodes: 0 Axillary nodes: 9 Number involved: 2 With macrometastases: 2 CONTINUED ON NEXT PAGE -------- -------- Name: Batsheva Greenberg e/Sex: 64/F : 1960 Unit#: [id number] Attend Dr: Rodger Doe MD Re01/08/25 Status : DIS IN Location: [facility] 350-1 Disch: 01/10/25 -------- -------- SPEC : [id number] RECD : 01/08/25-1509 STATUS: AMBROCIO BETANCOURT NUM: [id number] FANY: 01/08/25-1421 [facility] DR: Rodger Doe MD ENTERED: 01/08/25-15 10 SP TYPE: Surgical OTHR DR: Humberto Roca MD ORDERED: Gross Micro L6, IHC, E-cadherin/2 Diagnosis (Continued) With micrometastases: 0 With isolated tumor cells: 0 Extranodal extension : Present Size of largest met. deposit: 7 mm Treatment effect Breast: Not identified Lymph nodes: Not identified TNM: pT2 N1a (AJCC S tage 8th ed.) Ancillary studies: E R positive, TN low positive, HER2 negative (0), low proliferation (see K42-9724) Note: Corrected report not e (01/22/2025): Add extranodal extension present in the data synopsis for the lym ph node mets. No other changes are made. Clinical History Left breast invasive carcinoma Microscopic [...] inferior to skin-green and posterior surface-black. The CONTINUED ON NEXT PAGE -------- -------- Name: Batsheva Greenberg e/Sex: 64/F : 1960 Unit#: [id number] Attend Dr: Rodger Doe MD Re01/08/25 Status : DIS IN Location: [facility] 350-1 Disch: 01/10/25 -------- -------- SPEC : [id number] RECD : 01/08/25 STATUS: AMBROCIO BETANCOURT NUM: [id number] FANY: 01/08/25-142 [facility] DR: Rodger Doe MD ENTERED: 01/08/25 10 SP TYPE: Surgical OTHR DR: Humberto Roca MD ORDERED: Gross Micro L6, IHC, E-cadherin/2 Gross Description (Continued) specimen is serially sectioned from medial to [...] consists of yellow lobulated adipose tissue with interspersed focally dense fibrous tissue with areas [...] clara drant fibrous tissue A11. Lower inner clara drant fibrous tissue A12. Lower outer clara [...] and their performance characte ristics determined by [facility]. They have not been cleared or appr josefa by the U.S. Food and Drug Administration (FDA). However, the FDA has determined that such clearance or approval is not necessary. This laboratory is certified under the Clinical Laboratory Improvement Amendments of 1988 (CLIA) as qualified to perform high comp lexity clinical laboratory testing. CONTINUED ON NEXT PAGE -------- -------- Name: Batsheva Greenberg e/Sex: 64/F : 1960 [id number]#: [id number] Attend Dr: Rodger Doe MD Re01/08/25 Status : DIS IN Location: [facility] 350-1 Disch: 01/10/25 -------- -------- SPEC : [id number] RECD : 01/08/25-1509 STATUS: AMBROCIO BETANCOURT NUM: [id number] FANY: 01/08/25-7451 [facility] DR: Rodger Doe MD ENTERED: 01/08/25-15 10 SP TYPE: Surgical OTHR DR: Humberto Roca MD ORDERED: Gross Micro L6, IHC, E-cadherin/2 Copies To: Humberto Roca MD [address] [facility], [address] [place], [place] [id number] Rodger Doe MD [facility] [address] [place] [address] -------- -------- Signed (si gnature on file) Bry Charles MD 01/22/25 1514 -------- -------- END OF REPORT Type and Screen Reviewed date:01/10/2025 02:53:02 PM Interpretation: Performing Lab:[facility], [address] [place] [phone] Notes/Report: Blood Type OP Antibody Screen NEGATIVE Complete Blood Count Auto Di ff Reviewed date:01/10/2025 02:53:02 PM Interpretation: Performing Lab:[facility], [address] [place] [phone] Notes/Report: White Blood Count 12.1 4.8-10.8 X10*3/uL [...] Panel Reviewed date:01/10/2025 02:53:02 PM Interpretation: Performing Lab:[facility], [address] [place] [phone] Notes/Report: Sodium 139 135-145 mmol/L Potassium 4.5 [...] Problem Status W/U Status Risk Notes Problem 0389172 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 She has a plan for prevention of relapse in times of stress. Problem 391533764 Overweight (E66.3) Active confirmed She has lost 9 more pounds. She is no longer obese. We discussed her weight loss strategy today. We reviewed her diet and nutrition today. 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 Problem 290418876 Use of tamoxifen (Nolvadex) (Z79.810) Active confirmed She reports being up-to-date with PHYSICAL METEOROLOGIST and has had no vaginal bleeding. Problem 133579158 History of appendectomy (Z90.49) Active confirmed Problem 532395190 Status post righ t breast reconstruction (Z98.89) [...] Date Provider Diagnosis Humberto Roca III, MD [address] [place] [address] [place] [phone] 02/21/2024 Humberto Roca Former smoker Z87.89 1 ; Malignant neoplasm of upper-outer quadrant of right female breast C50.411 ; Overweight E66.3 ; Status post right breast reconstruction Z98.89 and Use of tamoxifen (Nolvadex) Z79.810 Humberto Roca III, MD [address] [place] [address] [place] [phone] 12/18/2024 Humberto Roca III, MD [address] [place] [address] [place] [phone] 12/31/2024 Humberto Roca Assessments Encounter Date Diagnosis [...] - Z79.810) She reports being up-to-date with PHYSICAL METEOROLOGIST and has had no vaginal bleeding. Plan Of Treatment Pending Test Test Name Order Date BONE DENSITY DEXA 06/05/2019 MAMMOGRAM DIGITAL SCREEN LEFT UNI 2019 MAMMOGRAM DIGITAL SCREEN LEFT UNI 2022 Pathology 01/08/2025 Next Appt Details Provider Name:Humberto Roca, 02/20/2025 10:30:00 AM, [address] [place] [address] [place], [address], Insurance Providers Payer Name Payer Address Payer Phone Subscriber Number Group Number Insured Name Patient Relationship to Insured Coverage Start Date Coverage End Date [employer] [address] [address] [place] [address] [phone] [id number] Batsheva Greenberg Self - patient is the insured Medical (General) History Medical History History ICD Code [id number] breast cancer last mammogram 05/2015 @ [facility] quintero stop 04/2019 Surgical History Surgery Date(Month/Year) full dental extractions 2019 left breast reduction right breast reconstruction appendectomy 2 caesarean sections
== END 2025-01-24 11:33 | disposition home or self-care (01) ==
LOC: HO.HGS 10:58
PROVIDERS: PCP Internal Medicine Medical Oncology; Visit Provider Surgery
DX: C50.912 Malignant neoplasm of unspecified site of left female breast (principal)
CPT/HCPCS: 99024

== ENCOUNTER 2025-02-04 11:27 | Outpatient (AMB) | payer OTHER, SELFPAY ==
--- OUTSIDE RECORDS SUMMARY | 2024-02-21 06:00 | XMS_ITS ---
Author Organization Humberto Roca III, MD Address [address] [place] [address] [place] [address] Care Team Providers Care Stapler Coil Unit Name Role Phone Oswald Murdock MD Primary Care Provider Dr. Humberto Franks III [phone] Allergies Allergen (clinical drug ingredient) Drug/Non Drug [...] Date Provider Diagnosis Humberto Roca III, MD [address] [place] [address] [place] [address] 02/21/2024 Humberto Roca Former smoker Z87.89 1 [...] - Z79.810) She reports being up-to-date with SUPERVISOR INSECTICIDE and has had no vaginal bleeding. Plan Of Treatment Medication Medication Name Sig Start Date Stop Date Notes Gabapentin 300 MG 1 capsule Orally Once a day Next Appt Details Follow Up: 1 Year, Reason: o v no tests Provider Name:Humberto Roca , 02/20/2025 10:45:00 AM, [address] [place] [address], [address], Progress Notes * Chaya YANGSheriOB:1960 (63 yo F)Acc No.[id number]:02/21/2024 Progress Notes Patient: Batsheva TERRY Provider: Maria T Roca MD :1960 A ge:63 Y S ex:Female Date:02/21/2024 Address:[address] [place] [id number] Pcp:Oswald Murdock MD Subjective: * Chief Complaints: [...] E x-cigarette smoker S he works at [employer]. She has been for 10 years to George. They have 2 children. She was born in [place], [place]. * Medications: T akingGabapentin 300 MG [...] N otes :She reports being up-to-date with SUPERVISOR INSECTICIDE and has had no vaginal bleeding. Plan: [...] 1 Generated for Radha mcintosh/Juanis/Keyshaitting on: 0 02/04/2025 02:22 PM EDT History and Physical Notes * HPI (History of Present Illness) Category Sub-Category Detail Notes COVID-19 Screening Questions Have you had any new onset fever, chills, cough, congestion, sore throat, shortness of breath, muscle aches?: No Have you been exposed to the virus with n the last 10 days?: No Have you travelled internationally in [facility] last 10 days?: No Have you [...]
--- OUTSIDE RECORDS SUMMARY | 2024-12-18 09:09 | XMS_ITS ---
Author Organization Humberto Roca III, MD Address [address] [place] [address] [place] [address] Care Team Providers Care Installation Tech Name Role Phone Oswald Murdock MD Primary Care Provider Dr. Humberto Franks III REASON FOR VISIT pathology results Social History Sex Assigned At : Social History Observation Description Sex Assigned At Female Encounters Encounter Location Date Provider Diagnosis Humberto Roca III, MD [address] [place] [address] [place] [address] 12/18/2024 Humberto Roca Plan Of Treatment Next Appt Details Provider Name:Humberto Roca , 02/20/2025 10:45:00 AM, [address] [place] [address] [place], [address], Progress Notes * Zan YANGOB:1960 (64 yo F)Acc No.[id number]:12/18/2024 Patient: Batsheva TERRY :1960 A ge:64 Y S ex:Female Address:[address] [place], [place] [address] [address] * true * Date: Generated for Printi ng/Faxing/eTransmitting on: 0 02/04/2025 02:22 PM EDT
--- OUTSIDE RECORDS SUMMARY | 2024-12-31 09:48 | XMS_ITS ---
Author Organization Humberto Roca III, MD Address [address] [place] [address] [place] [address] Care Team Providers Care Bank Analyst Name Role Phone Oswald Murdock MD Primary Care Provider Dr. Humberto Franks III [phone] REASON FOR VISIT update Social History Sex Assigned At : Social History Observation Description Sex Assigned At Female Encounters Encounter Location Date Provider Diagnosis Humberto Roca III, MD [address] [place] [address] [place] [address] 12/31/2024 Humberto Roca Plan Of Treatment Next Appt Details Provider Name:Humberto Roca , 02/20/2025 10:45:00 AM, [address] [place] [address] [place], [address], Progress Notes * Zan YANGOB:1960 (64 yo F)Acc No.[id number]:12/31/2024 Patient: Batsheva TERRY :1960 A ge:64 Y S ex:Female Address:[address] [place], [place] [address] [address] * true * Date: Generated for Printi ng/Faxing/eTransmitting on: 0 02/04/2025 02:21 PM EDT
--- OUTSIDE RECORDS SUMMARY | 2025-01-08 13:00 | XMS_ITS ---
Author Organization Humberto Roca III, MD Address [address] [place] [address] [place] [address] Care Team Providers Care Marketing Technology Coordinator Name Role Phone Oswald Murdock MD Primary Care Provider Dr. Humberto Franks III [phone] REASON FOR VISIT New Concern Social History Sex Assigned At : Social History Observation Description Sex Assigned At Female Encounters Encounter Location Date Provider Diagnosis Humberto Roca III, MD [address] [place] [address] [place] [address] 01/08/2025 Humberto Roca Plan Of Treatment Next Appt Details Provider Name:Humberto Roca , 02/20/2025 10:45:00 AM, [address] [place] [address] [place], [address], Progress Notes * Chaya YANGeDOB:1960 (64 yo F)Acc No.[id number]:01/08/2025 Progress Notes Patient: Batshvea TERRY Provider: Maria T Roca MD :1960 A ge:64 Y S ex:Female Date:01/08/2025 Address:[address] [place], [place] [address] [id number] Pcp:Oswald Murdock MD Subjective: * Chief Complaints: * 1 [...] 01/08/2025 Generated for Radha mcintosh/Juanis/Elvis on: 0 02/04/2025 02:22 PM EDT
--- OUTSIDE RECORDS SUMMARY | 2025-01-14 10:30 | XMS_ITS ---
Author Organization Humberto Roca III, MD Address [address] [place] [address] [place] [address] Care Team Providers Care Hat Maker Name Role Phone Oswald Murdock MD Primary Care Provider Dr. Humberto Franks III Allergies Allergen (clinical drug ingredient) Drug/Non Drug [...] Date Provider Diagnosis Humberto Roca III, MD [address] [place] [address] [place] [address] 01/14/2025 Humberto Roca Plan Of Treatment Medication Medication Name Sig Start Date Stop Date Notes Gabapentin 300 MG 1 capsule Orally Once a day Next Appt Details Provider Name:Humberto Roca , 02/20/2025 10:45:00 AM, [address] [place] [address] [place], [address], Progress Notes * Zan YANGOB:1960 (64 yo F)Acc No.[id number]:01/14/2025 Progress Notes Patient: Batsheva TERRY Provider: Maria T Roca MD :1960 A ge:64 Y S ex:Female Date:01/14/2025 Address:[address] [place], [place] [address] [id number] Pcp:Oswald Murdock MD Subjective: * Chief Complaints: [...] 3P2AB1, Breast cancer, last mammogram 05/2015 @ [facility], [place] stop 04/2019. * Surgical History: [...] E x-cigarette smoker S he works at [employer]. She has been for 10 years to George. They have 2 children. She was born in [place], [place]. * Medications: T aking Gabapentin 300 [...] Roca MD Date: 01/14/2025 Generated for Radha mcintosh/Juains/Elvis on: 02/04/2025 02:21 PM EDT History and Physical Notes * [...]
--- NOTE | 2025-02-04 11:31 | MHC.OFFVIS ---
Vital Signs 02/04/25 11:36 Height 5 ft 3 in Weight 160 lb 14.999 oz BMI 28.5 BP 110/70 Blood Pressure Location Lt brachial Position Sitting Intake Visit Reasons: 2wk S/P Lt modified radical mastectomy Intake Note: Patient is seen in office for 2 weekS follow up visit, post left breast mastectomy. Pt c/o: denies any concerns, went back to work yesterday, seen Oncologist- will be doing 30 session of radiation, No chemotherapy Post Production Assistant Required: No Accompanied by: Self / Same As Patient Allergies adhesive Allergy (Unknown, Uncoded 02/04/25 11:36) rash percocet Allergy (Unknown, Uncoded 02/04/25 11:36) nausea/vomiting HPI Comments Details: 64-year-old female patient, former patient of Dr. Braswell returning for breast cancer follow up after left mastectomy performed on 01/08/2025. Her past history is significant for infiltrating lobular carcinoma of the right breast. She subsequently underwent right modified radical mastectomy in March 2009. Pathology revealed 2 foci of infiltrating lobular carcinoma, 8 cm and 1.5 cm, grade 2, ER/WY positive, HER2 Yohan negative, 2 of 10 sentinel nodes positive for malignancy (T3 N1 M0, stage III). She received 4 cycles of dose dense AC followed by 4 cycles of Taxotere and chest wall irradiation, followed by tamoxifen. She underwent tram flap reconstruction of the right breast (Dr. Sal at [facility]) and reduction mammoplasty of the left breast. Ultrasound-guided biopsy of the left breast on 12/12/2024 revealed an invasive carcinoma with lobular and ductal features, in 2 lesions, ER/WY positive, HER2 Yohan negative. After being evaluated by Dr. Trinh the decision was made to proceed to left modified radical mastectomy which was performed on 01/08/2025. Pathology revealed invasive carcinoma with ductal and lobular features, 1.3 cm diameter with negative margins, 2 of 9 axillary lymph nodes were positive for metastatic carcinoma (pT2 N1a). She returns today for wound check and feels well. She is being evaluated for chest wall radiation. She will not be receiving chemotherapy. She denies any fluid in her flaps post removal of BHASKAR drains. [facility] Medical History HTN (hypertension) Invasive lobular carcinoma of breast, stage 3 Surgical History S/P left mastectomy History of 2 sections History of appendectomy History of mastectomy History of right breast biopsy Family History Mother HTN (hypertension) Social History Household Members: Spouse Housing: House Are you a primary client care specialist to a significant other at home: No Do you presently have visiting nurse or other home services: No Alcohol intake: current Alcohol intake frequency: holidays/special occasions only Patient Tobacco Use Status: Former Tobacco user Tobacco use type: Cigarette service: No Current occupational status: employed and unemployed Female Reproductive History Menstrual Age of Menarche: 13 Review of Systems Const All systems reviewed & are unremarkable except as noted in HPI and below Physical Exam Vital Signs: Last Vital Signs BP 110/70 02/04/25 11:36 BMI result Body Mass Index 28.5 Const General: comfortable Nutritional Appearance: well nourished Orientation/consciousness: patient oriented x3 Limitations: no limitations Chest Other: Well-healed mastectomy incision on the left side with some swelling in the lower flap. No evidence of seroma. Resp Effort & Inspection: normal respiratory effort, no audible wheezes, no cough and no respiratory distress Skin Other: Warm, dry Neuro Other: Mobility Assessment: 1. 3 meter assessment time (seconds) 5 2. Gait observations: Normal balance and gait General: patient oriented x3 Extrem General: No edema Assessment & Plan Assessment & Plan (1) Invasive lobular carcinoma of breast, stage 3: Code(s): C50.919 - Malignant neoplasm of unspecified site of unspecified female breast Category: Medical Qualifiers: Laterality: left Qualified Code(s): C50.912 - Malignant neoplasm of unspecified site of left female breast Plan 64-year-old female patient with a prior history of right breast carcinoma now status post left breast modified radical mastectomy on 01/08/2025. She tolerated the procedure well and her wounds are healing nicely. She will be treated with postmastectomy chest wall radiation at [facility]. I recommended follow-up examination in approximately 3 months, sooner PRN. Coding Level of Care Code Global (17849) Diagnoses Invasive lobular carcinoma of left breast, stage 3 C50.912 Laterality: left
[2025-02-04 11:36] VITALS: BP 110/70; BMI 28.5
--- OUTSIDE RECORDS SUMMARY | 2025-02-04 14:22 | XMS_ITS | Clinical Summary ---
Author Organization [facility] Address [address] [place] [phone] Phone Care Team Providers Care Hop Weigher Name Role Phone Pcp, Unknown Primary Care Provider Unavailabl e Allergies Active Allergy Reactions Criticality Noted Date Comments Adhesive Rash Low 01/29/2025 Oxycodone-Acetaminophen Nausea and/or Vomiting 01/29/2025 Medications gabapentin (NEURONTIN) 600 MG tablet Take 600 mg by mouth 3 (three) times a day. Active amitriptyline (ELAVIL) 50 MG tabletIndicatio ns:insomnia Take 50 mg by mouth nightly at bedtime. Indications: difficulty sleeping Active oxyCODONE 5 MG immediate release tabletIndicatio ns:pain Take 5 mg by mouth every 6 (six) hours as needed. Indications: pain Active Active Problems Problem Noted Date Diagnosed Date History of malignant neoplasm of right breast 2009 Breast cancer of upper-outer quadrant of left fe male breast 01/29/2025 Cancer Staging:Pathologic stage from 01/08/2025:Stage IB(pT2, pN1a, cM0, G2, ER: Positive, MD: Positive, HER2: Negative) - Signed by Deb Munguia MD on 01/29/2025 Encounters Date Type Department Care Team Description 01/29/2025 10:00 AM EDT Office Visit [facility] Rad Onc [address] [place] [address] Deb Munguia MD Malignant neoplasm of upper-outer quadrant of left breast in female, estrogen receptor positive (Primary Dx); History of malignant neoplasm of right breast 01/28/2025 Ancillary Orders [facility]Outside Imaging [address] [place] [address] Unknown, Unknown, MD 01/28/2025 Ancillary Orders [facility] [address] [place] [address] Unknown, Unknown, 01/28/2025 Ancillary Orders [facility] [address] [place] [address] Unknown, Unknown, MD 01/28/2025 Ancillary Orders [facility] [address] [place] [address] Unknown, Unknown, 01/28/2025 Ancillary Orders [facility] [address] [place] [address] Unknown, Unknown, 01/28/2025 Ancillary Orders [facility] [address] [place] [address] Unknown, Unknown, MD 12/25/2024 - 12/25/2024 11:59 PM EDT Hospital Encounter [facility] [address] [place] [address] Unknown, Unknown, MD Discharge Disposition: Home or Self Care 12/12/2024 12:05 AM EDT - 12/12/2024 11:59 PM EDT Hospital Encounter [facility] [address] [place] [address] Unknown, Unknown, MD Discharge Disposition: Home or Self Care 12/12/2024 - 12/12/2024 12:04 AM EDT Hospital Encounter [facility] [address] [place] [address] Unknown, Unknown, MD Discharge Disposition: Home or Self Care 12/02/2024 12:05 AM EDT - 12/02/2024 11:59 PM EDT Hospital Encounter [facility]Outside [facility] [address] [place] [address] Unknown, Unknown, MD Discharge Disposition: Home or Self Care 12/02/2024 - 12/02/2024 12:04 AM EDT Hospital Encounter [facility] [address] [place] [address] Unknown, Unknown, MD Discharge Disposition: Home or Self Care from Last 3 Months Family History Medical History Relation Comments Cancer Neg Hx Social History Tobacco Use Types Packs/Day Years Used Date Smoking Tobacco: Former Cigarettes Smokeless Tobacco: Never Alcohol Use Standard Drinks/Week Comments Not Currently 0 (1 standard drink = 0.6 oz pur e alcohol) Education Answer Date Recorded Are you interested in more education? Not on allen e 01/27/2025 Are you concerned about learning? Not on file 01/27/2025 No 01/27/2025 No 01/27/2025 Digital Access Answer Date Recorded No 01/27/2025 No 01/27/2025 Reliable internet access at home? Not on file 01/27/2025 Device with a working camera? Not on file Comments Unknown Sex and Gender Information Value Date Recorded Sex Assigned at Not on file Legal Sex Female 3:29 PM EDT Gender Identity Not on file Sexual Orientation Not on file Last Filed Vital Signs Vital Sign Reading Time Taken Comments Blood Pressure 160/95 01/29/2025 11:27 AM EDT Pulse 80 01/29/2025 11:27 AM EDT Temperature 36.8 C (98.2 F) 01/29/2025 11:27 AM EDT Respiratory Rate - - Oxygen Saturation 96% 01/29/2025 11:27 AM EDT Inhaled Oxygen Concentration - - Weight 75.6 kg (166 lb 9.6 oz) 01/29/2025 11:27 AM EDT Height - - Body Mass Index - - Plan of Treatment Health Maintenance Due Date Last Done Comments Adult Td,Tdap Booster 1959 LIPID PANEL 1959 DEPRESSION SCREENING 1971 SMOKING Hx and SMOKELESS TOBACCO SCREENING 1972 HEPATITIS C SCREENING 1977 HIV ONE-TIME SCREENING (18-65 YEARS) 1977 PNEUMOCOCCAL VACCINES (50+ years) (1 of 2 - PCV) 1978 ZOSTER VACCINES (1 of 2) 1978 COLOGUARD 2004 COLONOSCOPY 2004 COLORECTAL CANCER SCREENING 2004 FIT TEST 2004 FOBT 2004 SIGMOIDOSCOPY 2004 VIRTUAL COLONOSCOPY 2004 OSTEOPOROSIS SCREENING INITIAL (ONE-TIME) 2024 INFLUENZA VACCINE (#1) 2024 COVID-19 VACCINE ( season) 2025 MAMMOGRAM 12/25/2026 12/25/2024, 11/14, 12/02/2024, Additional history exists RSV VACCINE (1 - 1-dose 75+ series) 2034 HEPATITIS A VACCINES Aged Out No long er eligible based on patient's age to complete this topic HIB VACCINES Aged Out No longer eligi ble based on patient's age to complete this topic MENINGOCOCCAL VACCINES (ACWY) Aged Out No longer eligible based on patient's age to complete this topic MENINGOCOCCAL VACCINES (B) Aged Out N o longer eligible based on patient's age to complete this topic Medical Devices Not on file Procedures Procedure Name Priority Date/Time Associated Diagnosis Comments BI MRI BREAST OUTSIDE (NO INTERPRETATION) Routine 12/25/2024 12:00 AM EDT BI US BREAST OUTSIDE (NO INTERPRETATION) Routine 12/12/2024 12:05 AM EDT BI MAMMOGRAM OUTSIDE (NO INTERPRETATION) Routine 12/12/2024 12:00 AM EDT BI MAMMOGRAM OUTSIDE (NO INTERPRETATION) Routine 12/02/2024 12:05 AM EDT BI US BREAST OUTSIDE (NO INTERPRETATION) Routine 12/02/2024 12:00 AM EDT from Last 3 Months Results * MRI Breast Outside (No Interpretation) (12/25/2024 12:00 AM EDT) Narrative Record, - 01/28/2025 4:47 PM EDT This study is for PACS storage only and not for interpretation. Procedure Note Record, 01/28/2025 This study is for PACS storage only and not for interpretation. us Unknown Unknown MD [facility] OUTSIDE IMAGING W/OUT INT ERPRETATION Final Result * US Breast Outside (No Interpretation) (12/12/2024 12:05 AM EDT) Narrative Record, 01/28/2025 4:48 PM EDT This study is for PACS storage only and not for interpretation. Procedure Note Record, 01/28/2025 This study is for PACS storage only and not for interpretation. us Unknown Unknown MD IMG OUTSIDE IMAGING W/OUT INT ERPRETATION Final Result * Mammogram Outside (No Interpretation) (12/12/2024 12:00 AM EDT) Narrative SYSTEMGENERATED, DOCUMENTATION - 01/28/2025 4:47 PM EDT This study is for PACS storage only and not for interpretation. us Unknown Unknown MD IMG OUTSIDE IMAGING W/OUT INT ERPRETATION Final Result * Mammogram Outside (No Interpretation) (12/02/2024 12:05 AM EDT) Narrative Record, 01/28/2025 4:48 PM EDT This study is for PACS storage only and not for interpretation. Procedure Note Record, 01/28/2025 This study is for PACS storage only and not for interpretation. us Unknown Unknown MD IMG OUTSIDE IMAGING W/OUT INT ERPRETATION Final Result * US Breast Outside (No Interpretation) (12/02/2024 12:00 AM EDT) Narrative SYSTEMGENERATED, DOCUMENTATION - 01/28/2025 4:48 PM EDT This study is for PACS storage only and not for interpretation. us Unknown Unknown MD IMG OUTSIDE IMAGING W/OUT INT ERPRETATION Final Result from Last 3 Months [facility] U[facility] UMR PPO UMR O UMR Member Subscriber Plan / Payer (Ef fective 2020-Present) Name:Batsheva Greenberg Relation to Subscriber:Self Name:Batsheva Greenberg Payer ID:[id number] (NAIC) Type:PPO Address: [place] [id number] [facility] Care Teams Hop Weigher Relationship Specialty Start Date End Date Pcp, Unknown PCP - General 01/27/25 Additional Source Comments The information contained in this document represents components of the legal health record. It is not the complete legal health record.[facility]
--- OUTSIDE RECORDS SUMMARY | 2025-02-04 14:22 | XMS_ITS | Patient Health Record ---
Author Organization Humberto Roca III, MD Address [address] [place] [address] [place] [address] Care Team Providers Care Web Production Assistant Name Role Phone Oswald Murdock MD Primary Care Provider Dr. Humberto Franks III [phone] Allergies Allergen (clinical drug ingredient) Drug/Non Drug Allergy documented on EMR Reaction Allergy Type Onset Date Status Seasonale Unknown Drug Allergy Active Results Component Value Reference Range Notes MM tomosynthesis screening L T Reviewed date:10/13/2024 08:03:09 PM Interpretation: Performing Lab: Notes/Report: [facility]'[address] [place] [id number] Mammography Report Signed Patient: Batsheva Greenberg MR#: [id number] : 1960 Acct:[id number] Age/Sex: 64 / F ADM Date: 10/03/24 Loc: HO.MAMMO Attending Dr: Humberto Roca MD Ordering Physician: Humberto Roca MD Results: 0Incompl ete: Needs Additional Imaging Evaluation Date of Service: 10/03/24 Follow Up: Additional Imagi ng Procedure(s): MM tomosynthesis screening Accession Number(s): [id number] cc: Humberto Roca MD EXAMINATION: MM SCREENING [...] 10/11/24 1650 DD/ 0815 TD/TT: 10/03/24 0830 Glass Mold Repairer: [facility] [address] [place] [address] Mammography Report Signed Patient: Batsheva Greenberg MR#: [id number] : 1960 Acct:[id number] Age/Sex: 64 / F ADM Date: 10/03/24 Loc: HO.MAMMO Attending Dr: Humberto Roca MD Ordering Physician: Humberto Roca MD Results: 0Incompl ete: Needs Additiona l Imaging Evaluation Date of Service: Follow Up: Additional Imagi ng Procedure(s): MM tomosynthesis screening LT Accession Number(s): [id number] cc: Humberto Roca MD EXAMINATION: MM SCREENING DIGITAL BREAST TOMOSYNTHESIS, BILATERAL CLINICAL INFORMATION: Screening. Asymptoma tic. Right breast cancer in 2009 status post mastectomy. COMPARISON: Mammography: This st [...] 10/11/24 1650 DD/ 0815 TD/TT: 10/03/24 0830 Glass Mold Repairer: MM tomosynthesis added views L Reviewed date:12/22/2024 08:09:11 PM Interpretation: Performing Lab: Notes/Report: [facility] [address] [place] [address] Mammography Report Signed Patient: Batsheva Greenberg MR#: [id number] : 1960 Acct:[id number] Age/Sex: 64 / F ADM Date: 12/02/24 Loc: HO.MAMMO Attending Dr: Humberto Roca MD Ordering Physician: Humberto Roca MD Results: 4Suspici ous Finding Date of Service: 12/02/24 Follow Up: Biopsy Recommend ed Procedure(s): MM tomosynthesis added views L Accession Number(s): [id number] cc: Humberto Roca MD EXAMINATION: MM DIAGNOSTIC [...] 12/02/24 1044 DD/ 0945 TD/TT: 12/02/24 1010 Glass Mold Repairer: [facility] [address] [place] [address] [place] [address] Mammography Report Signed Patient: Batsheva Greenberg MR#: [id number] : 1960 Acct:[id number] Age/Sex: 64 / F ADM Date: 12/02/24 Loc: HO.MAMMO Attending Dr: Humberto Roca MD Ordering Physician: Humberto Rcoa MD Results: 4Suspici ous Finding Date of Service: Follow Up: Biopsy Recommend ed Procedure(s): MM tomosynthesis added views L Accession Number(s): [id number] cc: Humberto Roca MD EXAMINATION: MM DIAGNOSTIC [...] 12/02/24 1044 DD/ 0945 TD/TT: 12/02/24 1010 Glass Mold Repairer: US breast LT limited mamm on ly Reviewed date:12/22/2024 08:09:11 PM Interpretation: Performing Lab: Notes/Report: [facility] [address] [place] [address] Ultrasound Report Signed Patient: Batsheva Greenberg MR#: [id number] : 1960 Acct:[id number] Age/Sex: 64 / F ADM Date: 12/02/24 Loc: HO.MAMMO Attending Dr: Humberto Roca MD Ordering Physician: Humberto Roca MD Date of Service: 12/02/24 Procedure(s): US breast LT limited mamm only Accession Number(s): [id number] cc: Humberto Roca MD EXAMINATION: MM DIAGNOSTIC [...] 12/02/24 1044 DD/ 0944 TD/TT: 12/02/24 1022 Glass Mold Repairer: [facility] [address] [place] [address] Ultrasound Report Signed Patient: Batsheva Greenberg MR#: [id number] : 1960 Acct:[id number] Age/Sex: 64 / F ADM Date: 12/02/24 Loc: HO.MAMMO Attending Dr: Humberto Roca MD Ordering Physician: Humberto Roca MD Date of Service: 12/02/24 Procedure(s): US ovidio ast LT limited mamm only Accession Number(s): [id number] cc: Humberto Roca MD EXAMINATION: MM DIAGNOSTIC [...] 12/02/24 1044 DD/ 0944 TD/TT: 12/02/24 1022 Glass Mold Repairer: Pathology Reviewed date:01/10/2025 02:53:02 PM Interpretation: Performing Lab:[facility], [address] [place] [address] Notes/Report: -------- -------- Name: Batsheva Greenberg Shakir Lopez e/Sex: 64/F [facility] 1960 [id number]#: [id number] Attend Dr: Rodger Doe MD Re12/12/24 Status : DEP [facility] -------- -------- SPEC : [id number] REC STATUS: AMBROCIO BETANCOURT NUM: [id number] FANY: 12/12/[address] [facility] [address]: Fidelina Brandon DO ENTERED: 12/12/24- 15 SP TYPE: Surgical OTHR DR: Humberto Roca MD,Rodger Arriaga MD ORDERED: HE Stain/4, Gross Micro L4/2, Cytokeratin/2, ER/2, ND/2, IHC/2, Add. immunos/6, IHC ER/ND/Her2N/8, E-cadherin/2, Ki-67/2, p63/2, SMM/2, CEP1LEF/2 COMMENTS: Part A: As per the specimen [...] Batsheva Greenberg e/Sex: 64/F : 1960 Unit#: [id number] Attend Dr: Rodger Doe MD Re12/12/24 Status : DEP REF Location: HO.MAMMO Disch: -------- -------- SPEC : [id number] RECD : 12/12/24-101 STATUS: AMBROCIO BETANCOURT NUM: [id number] FANY: 12/12/24-[address] [facility] [address]: Fidelina Brandon DO ENTERED: 12/12/24- 15 SP TYPE: Surgical OTHR DR: Humberto Roca MD, John J MD ORDERED: HE Stain/4, Gross Micro L4/2, Cytokeratin/2, ER/2, ND/2, IHC/2, Add. immunos/6, IHC ER/ND/Her2N/8, E-cadherin/2, Ki-67/2, p63/2, SMM/2, AXA5QFL/2 COMMENTS: Part A: As per the specimen [...] Adolph kee and lobular features Histologic grade (Ponce/MSBR histologic score): 2 - Glandular/tubular differentiation: Score: [...] Batsheva Greenberg ge/Sex: 64/F : 1960 Unit#: [id number] Attend Dr: Rodger Doe MD Re12/12/24 Status : DEP REF Location: HO.MAMMO Disch: -------- -------- SPEC : [id number] RECD : 12/12/24-1010 STATUS: AMBROCIO BETANCOURT NUM: [id number] FANY: 12/12/24-[address] [facility] [address]: Fidelina Brandon DO ENTERED: 12/12/24- 15 SP TYPE: Surgical OTHR DR: Humberto Roca MD, John J MD ORDERED: HE Stain/4, Gross Micro L4/2, Cytokeratin/2, ER/2, ND/2, IHC/2, Add. immunos/6, IHC ER/ND/Her2N/8, E-cadherin/2, Ki-67/2, p63/2, SMM/2, III4UFB/2 COMMENTS: Part A: As per the specimen [...] Dual Link System-HRP. Progesterone recepto r: Clone [id number]; [employer] Mach 4 detection system. Her-2/trudi immunohistochemistry performed in accordance with ASCO/CAP recommendations (2007) and update (2013). Hercep Test CONTINUED ON NEXT PAGE -------- -------- Name: Batsheva Greenberg e/Sex: 64/F : 1960 Unit#: [id number] Attend Dr: Rodger Doe MD Re12/12/24 Status : DEP REF Location: HOMAMMO Disch: -------- -------- SPEC : [id number] RECD : 12/12/24-1011 STATUS: AMBROCIO BETANCOURT NUM: [id number] FANY: 12/12/24-[address] [facility] [address]: Fidelina Brandon DO ENTERED: 12/12/24- 15 SP TYPE: Surgical OTHR DR: uHmberto Roca MD,Rodger Arriaga MD ORDERED: HE Stain/4, Gross Micro L4/2, Cytokeratin/2, ER/2, ND/2, IHC/2, Add. immunos/6, IHC ER/ND/Her2N/8, E-cadherin/2, Ki-67/2, p63/2, SMM/2, XNR7RWY/2 COMMENTS: Part A: As per the specimen requisition slip the specimen is collected at 0913 and placed in formalin at 0922. Part B: As per the s pecimen requisition slip the specimen is collected at 0913 and placed in formalin at 0924. Gross Description (Continued) Detection system: Po lymer type Scoring criteria: For ER/ND and Her-2/ trudi: All internal (if present) and external controls react appropriately. ER and ND immunostai ns are scored as Positive (> [...] d, according to cut-offs established in the alyshaarchE trial, as High (> or = 20% of tumor ce ll nuclei) or Low (< 20% of tumor cell nuclei). Tumor cell nuclear staining intensity o f 1+ or greater is positive. New AC, Luisito ME, et al. Human Epidermal Growth Factor Receptor 2 Testing in Breast Cancer: ASCO/CAP Cli nical Practice Guideline Focus Update. Arch of Pathol Lab Med, 142, 2018: 6779-4514. Verito KH, Luisito ME, et al. Estrogen and Progesterone Receptor Testing in Breast Cancer: ASCO/CAP Guideline U pdate. Arch of Pathol Lab Med, 144 2020: 545-563. Pari N, Monroe P , et al. Adjuvant abemaciclib combined with endocrine therapy for high- risk early breast ca ncer: updated efficacy and Ki-67 analysis from the [facility] study. Shantelle Oncol. 2020;32(12):3880-5731. This case was review ed intradepartmentally; results were communicated to Drs. Doe and Aleksandr on 12/16/2024. CONTINUED ON NEXT PAGE -------- -------- Name: Batsheva Greenberg John e/Sex: 64/F : 1960 Unit#: [id number] Attend Dr: Rodger Doe MD Re12/12/24 Status : DEP [facility]F [facility] Disch: -------- -------- SPEC : [id number] RECD : 12/12/24-1011 STATUS: AMBROCIO BETANCOURT NUM: [id number] FANY: 12/12/[address] [facility] [address]: Fidelina Brandon DO ENTERED: 12/12/24-10 15 SP TYPE: Surgical OTHR DR: Humberto Roca MD, John J MD ORDERED: HE Stain/4, Gross Micro L4/2, Cytokeratin/2, ER/2, ND/2, IHC/2, Add. immunos/6, IHC ER/ND/Her2N/8, E-cadherin/2, Ki-67/2, p63/2, SMM/2, NJT8VZI/2 COMMENTS: Part A: As per the specimen requisition slip the specimen is collected at 0913 and placed in formalin at 0922. Part B: As per the s pecimen requisition slip the specimen is collected at 0913 and placed in formalin at 0924. Gross Description (Continued) Special studies orde red and performed: Immunostains for E-cadherin, pancytokeratin, p63, smooth muscle myosin , ER, ND, HER2 and Ki 67 (A and B) IHC S/NG Disclaimer NOTE: Unless otherwi se stated, all tissue is formalin-fixed and paraffin-embedded. Some or all of the immunohistochemical tests reported herein may have been developed and their performance characte ristics determined by [facility]. They have not been cleared or appr josefa by the U.S. Food and Drug Administration (FDA). However, the FDA has determined that such clearance or approval is not necessary. This laboratory is certified under the Clinical Laboratory Improvement Amendments of 1988 (CLIA) as qualified to perform high comp lexity clinical laboratory testing. Copies To: Humberto Roca MD [address] [place] [address], [address] [place] [address] Rodger Doe MD [facility] [address] [place] [address] Fidelina Brandon DO [address] [place] [address] -------- -------- Signed (si gnature on file) Bry Charles MD 12/16/24 1638 -------- -------- END OF REPORT MM tomosynthesis diagnostic LT Reviewed date:12/22/2024 08:09:10 PM Interpretation: Performing Lab: Notes/Report: [facility]'[address] [place] [address] Mammography Report Signed with Thony Patient: Batsheva Greenberg MR#: [id number] : 1960 Acct:[id number] Age/Sex: 64 / F ADM Date: 12/12/24 Loc: BRANDI Attending Dr: Rodger Doe MD Ordering Physician: Rodger Doe MD Results: Date of Service: 12/12/24 Follow Up: Procedure(s): MM tomosynthesis diagnostic LT Accession Number(s): [id number] cc: Humberto Roca MD; Rodger Doe MD [...] DO 12/12/2024 11:51 AM EDT Dictated By: Tyminski,Fidelina DO Signed By: <Electronically signed by Fidelina Brandon DO in OV> 12/12/24 1151 DD/ 4 TD/TT: 12/12/24929 Glass Mold Repairer: [facility] [address] [place] [address] [place] [address] Mammography Report Signed with Addenda Patient: Batsheva Greenberg MR#: [id number] : 1960 Acct:[id number] Age/Sex: 64 / F ADM Date: 12/12/24 Loc: HO.MAMMO Attending Dr: Rodger Doe MD Ordering Physician: Rodger Doe MD Results: Date of Service: Follow Up: Procedure(s): MM tomosynthesis diagnostic LT Accession Number(s): [id number] cc: Humberto Roca MD; Rodger Doe MD [...] OV> 12/12/24 1151 DD/ 4 TD/TT: 12/12/24929 Glass Mold Repairer: breast ndl core bio ea ad d Reviewed date:12/22/2024 08:09:10 PM Interpretation: Performing Lab: Notes/Report: [facility] [address] [place], [place] [address] Ultrasound Report Signed with Thony Patient: Batsheva Greenberg MR#: [id number] : 1960 Acct:[id number] Age/Sex: 64 / F ADM Date: 12/12/24 Loc: BRANDI Attending Dr: Rodger Doe MD Ordering Physician: Rodger Doe MD Date of Service: 12/12/24 Procedure(s): US breast ndl core bio ea add Accession Number(s): [id number] cc: Humberto Roca MD; Rodger Doe MD [...] Fidelina Brandon DO 12/18/2024 01:47 PM EDT Workstation: [id number] Addendum Dictated By: Fidelina Brandon DO Addendum [...] 12/12/24 1151 DD/ 0905 TD/TT: 12/12/24 09 Glass Mold Repairer: [facility] [address] [place] [address] Ultrasound Report Signed with Addenda Patient: Batsheva Greenberg MR#: [id number] : 1960 Acct:[id number] Age/Sex: 64 / F ADM Date: 12/12/24 Loc: BRANDI Attending Dr: Rodger Doe MD Ordering Physician: Rodger Doe MD Date of Service: 12/12/24 Procedure(s): US ovidio ast ndl core bio ea add Accession Number(s): [id number] cc: Humberto Roca MD; Rodger Doe MD [...] instruct ions. Final pathology results are pending. [facility]/ breast ndl core bio ea add [...] By: Fidelina Brandon DO Signed By: <[place] icajin signed by Fidelina Brandon DO in OV> 12/12/24 1151 DD/ TD/TT: 12/12/24929 Glass Mold Repairer: US breast ndl core biopsy LT Reviewed date:12/22/2024 08:09:10 PM Interpretation: Performing Lab: Notes/Report: [facility] [address] [place] [address] Ultrasound Report Signed with Addenda Patient: Batsheva Greenberg MR#: [id number] : 1960 Acct:[id number] Age/Sex: 64 / F ADM Date: 12/12/24 Loc: BRANDI Attending Dr: Rodger Doe MD Ordering Physician: Rodger Doe MD Date of Service: 12/12/24 Procedure(s): US breast ndl core biopsy LT Accession Number(s): [id number] cc: Humberto Roca MD; Rodger Doe MD [...] in OV> 12/12/24 1151 DD/ 09 TD/TT: 12/12/24 09 Glass Mold Repairer: [facility] [address] [place] [address] Ultrasound Report Signed with Addenda Patient: Batsheva Greenberg MR#: [id number] : 1960 Acct:[id number] Age/Sex: 64 / F ADM Date: 12/12/24 Loc: HO.MAMMO Attending Dr: Rodger Doe MD Ordering Physician: Rodger Doe MD Date of Service: 12/12/24 Procedure(s): US ovidio ast ndl core biopsy LT Accession Number(s): [id number] cc: Humberto Roca MD; Rodger Doe MD [...] OV> 12/12/24 1151 DD/ 4 TD/TT: 12/12/24929 Glass Mold Repairer: MR breast BI wo/w con Reviewed date:12/30/2024 04:08:59 PM Interpretation: Performing Lab: Notes/Report: [place] [address] Magnetic Resonance Report Signed Patient: Batsheva Greenberg MR#: [id number] : 1960 Acct:[id number] Age/Sex: 64 / F ADM Date: 12/25/24 Loc: .MRI Attending Dr: Rodger Doe MD Ordering Physician: Rodger Doe MD Date of Service: 12/25/24 Procedure(s): MR breast BI wo/w con Accession Number(s): [id number] cc: Humberto Roca MD; Rodger Doe MD; [...] Brandon DO in OV> 12/26/24 1508 DD/ 1508 TD/TT: 12/25/24 1550 Glass Mold Repairer: [address] [address] Magnetic Resonance Report Signed Patient: Batsheva Greenberg MR#: [id number] : 1960 Acct:[id number] Age/Sex: 64 / F ADM Date: 12/25/24 Loc: .MRI Attending Dr: Rodger Doe MD Ordering Physician: Rodger Doe MD Date of Service: 12/25/24 Procedure(s): MR nolan ast BI wo/w con Accession Number(s): [id number] cc: Humberto Roca MD; Rodger Deo MD; Physician,Unknown EXAMINATION: MR BREAST WITHOUT AN [...] OV> 12/26/24 1508 DD/ 1505 TD/TT: 12/25/24 1550 Glass Mold Repairer: Pathology Reviewed date:02/03/2025 05:49:44 AM Interpretation: Performing Lab:[facility], [address] [place] [address] Notes/Report: -------- -------- Name: Batsheva Greenberg e/Sex: 64/F : 1960 [id number]#: [id number] Attend Dr: Rodger Doe MD Re01/08/25 Status : DIS IN Location: [facility] 350-1 Disch: 01/10/25 -------- -------- SPEC : [id number] RECD : 01/08/25 STATUS: AMBROCIO BETANCOURT NUM: [id number] FANY: 01/08/25-[address] [facility] [address]: Rodger Doe MD ENTERED: 01/08/25 SP TYPE: Surgical OTHR DR: Humberto Roca [...] superior/anterior margin Lymph nodes Number examined: 9 [place] nodes: 0 Axillary nodes: 9 Number involved: 2 With macrometastases: 2 CONTINUED ON NEXT PAGE -------- -------- Name: Batsheva Greenberg e/Sex: 64/F : 1960 Unit#: [id number] Attend Dr: Rodger Doe MD Re01/08/25 Status : DIS IN Location: [facility] 350-1 Disch: 01/10/25 -------- -------- SPEC : [id number] RECD : 01/08/25-150 STATUS: AMBROCIO BETANCOURT NUM: [id number] FANY: 01/08/25-[address] [facility] [address]: Rodger Doe MD ENTERED: 01/08/25-15 10 [...] 8th ed.) Ancillary studies: E R positive, ND low positive, HER2 negative (0), low proliferation (see X31-1190) Note: Corrected report not e (01/22/2025): Add [...] Batsheva Greenberg e/Sex: 64/F : 1960 Unit#: [id number] Attend Dr: Rodger Doe MD Re01/08/25 Status : DIS IN Location: [facility] 350-1 Disch: 01/10/25 -------- -------- SPEC : [id number] RECD : 01/08/25150 STATUS: AMBROCIO BETANCOURT NUM: [id number] FANY: 01/08/25-[address]: Rodger Doe MD ENTERED: 01/08/25 10 [...] and their performance characte ristics determined by [facility]. They have not been cleared [...] Batsheva Greenberg e/Sex: 64/F : 1960 Unit#: [id number] Attend Dr: Rodger Doe MD Re01/08/25 Status : DIS IN Location: [facility] 350-1 Disch: 01/10/25 -------- -------- SPEC : [id number] RECD : 01/08/25-8775 STATUS: AMBROCIO BETANCOURT NUM: [id number] FANY: 01/08/25-[address] [facility] [address]: Rodger Doe MD ENTERED: 01/08/25-15 10 SP TYPE: Surgical OTHR DR: Humberto Roca MD ORDERED: Gross Micro L6, IHC, E-cadherin/2 Copies To: Humberto Roca MD [address] [facility], [address] [place] [address] Rodger Doe MD [facility] [address] [place] [address] -------- -------- Signed (si gnature on file) rBy Charles MD 01/22/25 1514 -------- -------- END OF REPORT Type and Screen Reviewed date:01/10/2025 02:53:02 PM Interpretation: Performing Lab:[facility], [address] [place] [phone] Notes/Report: Blood Type OP Antibody Screen NEGATIVE Complete Blood Count Auto Di ff Reviewed date:01/10/2025 02:53:02 PM Interpretation: Performing Lab:[facility], [address] [place] [phone] Notes/Report: White Blood Count 12.1 4.8-10.8 X10*3/uL [...] Panel Reviewed date:01/10/2025 02:53:02 PM Interpretation: Performing Lab:[facility], [address] [place] [phone] Notes/Report: Sodium 139 135-145 mmol/L Potassium 4.5 [...] Problem Status W/U Status Risk Notes Problem 6914427 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 She has a plan for prevention of relapse in times of stress. Problem 546447821 Overweight (E66.3) Active confirmed She has lost 9 more pounds. She is no longer obese. We discussed her weight loss strategy today. We reviewed her diet and nutrition today. Problem 404207034 Malignant neoplasm of upper-outer quadrant of right female breast (C50.411) Active confirmed There is no sign of a new primary are of returns today. Problem 943278275 Use of tamoxifen (Nolvadex) (Z79.810) Active confirmed She reports being up-to-date with MOLD PRESSER and has had no vaginal bleeding. Problem 126247896 History of appendectomy (Z90.49) Active confirmed Problem 296727107 Status post righ t breast reconstruction (Z98.89) [...] Provider Diagnosis Humberto Roca III, MD [address] [place] [address] [place] [address] 02/21/2024 Humberto Roca Former smoker Z87.89 1 ; Malignant neoplasm of upper-outer quadrant of right female breast C50.411 ; Overweight E66.3 ; Status post right breast reconstruction Z98.89 and Use of tamoxifen (Nolvadex) Z79.810 Humberto Roca III, MD [address] [place] [address] [place] [address] 12/18/2024 Humberto Roca III, MD [address] [place] [address] [place] [phone] 12/31/2024 Humberto Roca Assessments Encounter Date Diagnosis [...] - Z79.810) She reports being up-to-date with MOLD PRESSER and has had no vaginal bleeding. Plan Of Treatment Pending Test Test Name Order Date BONE DENSITY DEXA 06/05/2019 MAMMOGRAM DIGITAL SCREEN LEFT UNI 2019 MAMMOGRAM DIGITAL SCREEN LEFT UNI 2022 Next Appt Details Provider Name:Humberto Roca , 02/20/2025 10:45:00 AM, [address] [place] [address] GATO RASMUSSEN, [place], [address], Insurance Providers Payer Name Payer Address Payer Phone Subscriber Number Group Number Insured Name Patient Relationship to Insured Coverage Start Date Coverage End Date [facility] [address] [address] [place] [phone] [id number] Yari Batsheva Self - patient is the insured Medical (General) History Medical History History ICD Code [id number] breast cancer last mammogram 05/2015 @ [facility] quintero stop 04/2019 Surgical History Surgery Date(Month/Year) full dental extractions 2019 left breast reduction right breast reconstruction appendectomy 2 caesarean sections
== END 2025-02-04 11:40 | disposition home or self-care (01) ==
LOC: HO.HGS 11:28
PROVIDERS: PCP Internal Medicine Medical Oncology; Visit Provider Surgery
DX: C50.912 Malignant neoplasm of unspecified site of left female breast (principal)
CPT/HCPCS: 99024

== ENCOUNTER → 2025-04-21 14:19 | Outpatient (REF) | payer OTHER, SELFPAY ==
--- NOTE | 2025-04-21 14:23 | ECG_ITS ---
Test Reason : CHECK QTC Blood Pressure : */* mmHG Vent. Rate : 74 BPM Atrial Rate : 74 BPM P-R Int : 164 ms QRS Dur : 90 ms QT Int : 438 ms P-R-T Axes : 61 -20 47 degrees QTcB Int : 486 ms Normal sinus rhythm Minimal voltage criteria for LVH, may be normal variant ( Stalin product ) Borderline ECG When compared with ECG of 27-Mar-2009 11:22, No significant changes seen Referred By: Julissa Trinh Electronically Signed By: ELI MAY MD
--- OUTSIDE RECORDS SUMMARY | 2025-04-21 23:15 | XMS_ITS | Data Portability ---
Author Organization [facility] Pain Managem ent, PAIN OFFICE Address [address],[facility] [address] [place] [address] Care Team Providers Care Websphere Commerce Developer Name Role Phone [facility] (MEDICAL RECORDS) Primar y Care Provider CHRISTY BRASWELL Referring Provider [phone] Assessment Encounter Date Assessment Date Assessment LastModified [...] She will follow up in six months. edilian Not available 02/02/2015 10:31:16 08/13/2015 08/13/2015 Batsheva [...] She will follow up in two weeks [email or web address] Not available 09/07/2015 11:34:33 09/23/2015 09/23/2015 Batsheva [...] e 5 % topical cream 2015 016 [facility], [address] [place], [address], 6 11:52:36 Topamax 100 mg tablet 2014 015 INTERFACE [facility], [address] [place], [address], 5 10:07:38 Patient TargetsNo targets recorded. Patient Instructions Encounter Date Encounter Id Patient Instructions Last Modified By Organization Details Last Modified Time 06/09/2014 [id number] She was advised against bed rest lasting longer than four days and to continue activities as tolerated. [email or web address] Not available 06/09/2014 10:04:10 01/30/2015 [id number] She was advised against bed rest lasting longer than four days and to continue activities as tolerated. [email or web address] Not available 01/30/2015 09:47:30 08/13/2015 [id number] She was advised against bed rest lasting longer than four days and to continue activities as tolerated. [email or web address] Not available 08/19/2015 14:32:22 09/07/2015 [id number] She was advised against bed rest lasting longer than four days and to continue activities as tolerated. [email or web address] Not available 09/07/2015 11:31:27 09/23/2015 [id number] She was advised against bed rest lasting longer than four days and to continue activities as tolerated. [email or web address] Not available 09/24/2015 11:49:16 Reason for Referral None Reported. 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 00478739 Active Radha lira MD [address] , [address], [facility] [place], [address], [place] [facility] 11:52:34 Malignant neoplasm of breast 529316875 Active Radha lira MD [address] , [address], [facility] [place], [address], [place] [facility] 11:52:34 Peripheral nerve entrapment syndrome 15672257 Active Radha lira MD [address] , [address], [facility] [place], [address], [place] [facility] 11:52:34 Problem Notes None recorded. Procedures Surgical History Date Name Laterality Status Provider Name and Address Organization Details Recorded Time 09/23/19 16 Intercostal Nerve Blocks completed Radha Hewitt MD [address] , [address], [place], [address], [place] [facility] 09/24/2015 11:52:36 09/07/19 16 Intercostal Nerve Blocks completed Radha Hewitt MD [address] , [address], [place], [address], [place] [facility] 09/07/2015 11:52:55 08/13/19 16 Trigger Point Injections under ultrasound guidance completed Radha Hewitt MD [address] , [address], [place], [address], [place] [facility] 08/19/2015 15:23:26 06/09/19 15 Trigger Point Injections under ultrasound guidance completed Radha Hewitt MD [address] , [address], [place], [address], [place] [facility] 06/11/2014 15:41:55 03/05/20 14 Intercostal Nerve Blocks completed Radha Hewitt MD [address] , [address], [place], [address], [place] [facility] 03/05/2014 11:11:22 02/11/20 14 Trigger Point Injections under ultrasound guidance completed Radha Hewitt MD [address] [facility] , [address], [place], [address], [place] [facility] 02/11/2014 10:28:07 10/17/19 14 Intercostal Nerve Blocks completed Radha Hewitt MD [address] [facility] , [address], [place], [address], [place] [facility] 10/23/2013 15:16:10 09/26/19 14 Trigger Point Injections under ultrasound guidance completed Radha Hewitt MD [address] [facility] , [address], [place], [address], [place] [facility] 09/26/2013 09:31:44 09/19/19 14 Trigger Point Injections under ultrasound guidance completed Radha Hewitt MD [address] [facility] , [address], [place], [address], [place] [facility] 09/18/2013 14:57:13 09/05/19 14 Trigger Point Injections under ultrasound guidance completed Radha Hewitt MD [address] [facility] , [address], [place], [address], [place] [facility] 09/04/2013 14:31:11 Appendectomy completed Fanyharrison Marley [place] - [facility] [...] Not Available Vitals Date Recorded Oxygen saturation Heart rate Systolic And Diastolic Provider Name and Address Organization Details Last Updated DateTime 06/09/2014 98 % 76 /min 139/85 mm[Hg] Fany Marley [facility] - [facility] 06/09/2014 09:26:37 Date Recorded Oxygen saturation Heart rate Systolic And Diastolic Provider Name and Address Organization Details Last Updated DateTime 08/13/2015 100 % 66 /min 156/93 mm[Hg] Fany Marley [place] [facility] 08/13/2015 13:46:16 Date Recorded Heart rate Oxygen saturation Systolic And Diastolic Provider Name and Address Organization Details Last Updated DateTime 09/07/2015 66 /min 100 % 166/79 mm[Hg] Fany Marley [place] - [facility] 09/07/2015 09:19:13 Date Recorded Oxygen saturation Heart rate Systolic And Diastolic Provider Name and Address Organization Details Last Updated DateTime 09/23/2015 99 % 64 /min 137/90 mm[Hg] Fany Marley [place] [facility] 09/23/2015 13:09:29 Date Recorded Oxygen saturation Heart rate Systolic And Diastolic Provider Name and Address Organization Details Last Updated DateTime 01/30/2015 99 % 60 /min 122/82 mm[Hg] Fany Marley [place] [facility] 01/30/2015 08:29:25 Social History Question Answer Notes LastModified by [employer] Details LastModified Time Tobacco Smoking Status Former Smoker Quit x 10 years Not Available [employer] 02/28/2020 03:16:12 Which Illicit Or Recreational Drugs Have You Used? No [id number] Information not available 02/28/2020 Education 12 [email or web address] Information no t available 08/27/2013 Live Alone Or With Others? With Others And Daughter [email or web address] Information not available 08/27/2013 Marital Status [email or web address] Informatio n not available 08/27/2013 How Many Years Have You Smoked Tobacco? 15 [id number] Information not available 02/28/2020 Sex: Unknown Functional Status Question Answer Note LastModified by [employer] Details LastModified Time What is your level of alcohol consumption? 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 Family History Nothing Reported. Medical History Condition Response Cancer Y Gynecological HistoryNo gynecological history recorded. Obstetrics History GPAL:G 0 P 0 0 0 0 Past Encounters Encounter ID Performer Location Encounter Start Date Encounter Closed Date Diagnosis/Indication Diagnosis SNOMED-CT Code Diagnosis ICD10 Code Diagnosis IMO Codes Diagnosis Note [id number] Radha Hewitt MD PAIN OFFICE [address] [place] [address] 08/27/2013 10:03:54 09/01/2013 16:48:19 Malignant neoplasm of breast [id number] Peripheral nerve entrapment syndrome 62376900 [id number] Radha Hewitt MD PAIN OFFICE [address] [facility] [place] [address] 09/04/2013 13:10:48 09/04/2013 14:32:59 Peripheral nerve entrapment syndrome 25441199 Malignant neoplasm of breast 847076443 [id number] Radha Hewitt MD [facility] PAIN OFFICE [address] [place] [address] 09/18/2013 08:49:52 09/18/2013 13:41:52 Malignant neoplasm of breast 926724967 Peripheral nerve entrapment syndrome 31861687 22971 Radha Hewitt MD [facility] PAIN OFFICE [address] [place] [address] 09/25/2013 08:23:09 09/26/2013 09:32:29 Peripheral nerve entrapment syndrome 43810249 Malignant neoplasm of breast 863289954 10047 Radha Hewitt MD PAIN OFFICE [address] [place] [address] 10/16/2013 08:15:19 10/23/2013 16:00:37 Peripheral nerve entrapment syndrome 22331263 Malignant neoplasm of breast 057596737 [id number] Radha Hewitt MD [facility] PAIN OFFICE [address] [place] [address] 02/10/2014 08:35:26 02/11/2014 09:10:28 Malignant neoplasm of breast 282750453 Peripheral nerve entrapment syndrome 78860178 [id number] Radha Hewitt MD [facility] PAIN OFFICE [address] [place] [address] 03/05/2014 08:14:59 03/05/2014 11:12:29 Peripheral nerve entrapment syndrome 75663699 Malignant neoplasm of breast 041569489 57867 Radha Hewitt MD [facility] PAIN OFFICE [address] [place] [address] 06/09/2014 09:18:56 06/09/2014 10:11:49 Peripheral nerve entrapment syndrome 40388261 Malignant neoplasm of breast 350245400 [id number] Radha Hewitt MD [facility] PAIN OFFICE [address] [place] [address] 01/30/2015 08:22:35 01/30/2015 09:49:02 Peripheral nerve entrapment syndrome 02856480 Malignant neoplasm of breast 098333213 47943 Radha Hewitt MD PAIN OFFICE [address] [facility] [place] [address] 08/13/2015 13:08:34 08/19/2015 15:24:02 Peripheral nerve entrapment syndrome 85436768 G58.8 Malignant neoplasm of breast 723921631 C50.911 [id number] Radha Hewitt MD PAIN OFFICE [address] [facility] [place] [address] 09/07/2015 09:11:02 09/07/2015 14:27:06 Peripheral nerve entrapment syndrome 49126655 G58.8 Malignant neoplasm of breast 540276618 C50.911 Injury cau sed by ionizing radiation 98050008 W88.8XXS [id number] Radha Hewitt MD PAIN OFFICE [address] [place] [address] [place] [address] 09/23/2015 12:42:50 09/24/2015 11:53:27 Peripheral nerve entrapment syndrome 75364054 G58.8 Injury cau sed by ionizing radiation 25357613 W88.8XXS Malignant neoplasm of breast 693451173 C50.911 Health Concerns Section Related Observation LastModified by Organization Detai ls LastModified Time None Recorded Concern Status LastModified by Organization Details LastModified Time None Recorded Advance Directives Directive None Recorded Payers Insurance Date Sequence Insurance Name Policy Number Policy Bell Covered Member ID Bell Member ID Guarantor Name 09/20/2015 1 OLAF [id number] Batsheva Greenberg [id number] Batsheva Greenberg Notes Date Note Type Note [...] in April 2014. Radha Hewitt MD [address] , [address], [place], [address], [facility] - Pain Management [...] results to me. Radha Hewitt MD [address] [facility] , [address], [place], [address], [facility] - Pain Management [...] has lost weight. Radha Hewitt MD [address] [facility] , [address], [place], [address], [facility] - Pain Management [...] stress is also adding to her pain. Radha Hewitt MD [address] [facility] , [address], [place], [address], [facility] - Pain Management 09/16/2015 08:50:54 09/23/2015 text/html She is here for a follow up after an intercostal nerve block under ultrasound guidance. She states she had some pain benefit after the intercostal nerve block. She states she is able to move her right shoulder better and is able to tolerate clothing better. She is continuing with Topomax. Her job has changed and stress is also adding to her pain. She states she is having a hard time with keeping the lidoderm patches on. She states she had good pain benefit after applying the EMLA cream. She would prefer the lidocaine in a cream than the patches. Radha Hewitt MD [address] [place] [address] , [address], [place], [address], [place] [facility] 10/08/2015 08:48:40 OBGyn Episode No OBEpisode recorded.
--- OUTSIDE RECORDS SUMMARY | 2025-04-21 23:15 | XMS_ITS | Clinical Summary ---
Author Organization [facility] Address [address] [place] [address] Phone Care Team Providers Care Farm Truck Driver Name Role Phone Pcp, Unknown Primary Care [...] 01/08/2025:Stage IB(pT2, pN1a, cM0, G2, ER: Positive, AZ: Positive, HER2: Negative) - Signed by Deb Munguia MD on 01/29/2025 Encounters Date Type Department Care Team Description 03/21/2025 Documentation [facility] Rad Onc [address] [place] [address] Deb Munguia MD 03/20/2025 8:10 AM EST Procedure visit [facility] Rad On[facility] [address] [place] [address] Deb Munguia MD Breast cancer of upper-outer quadrant of left female breast (Primary Dx) 03/19/2025 Documentation [facility] Rad Onc [address] [place] [address] La Begum [place] Rad Onc discharge (Malignant neoplasm of upper-outer quadrant of left breast in female, estrogen receptor positive/) 03/19/2025 Documentation [facility] Rad Onc [address] [place] [address] La Begum [place] 03/13/2025 11:40 AM EDT Procedure visit [facility] Rad Onc [address] [place] [address] Deb Munguia MD Breast cancer of upper-outer quadrant of left female breast (Primary Dx) 03/06/2025 1:30 PM EDT Procedure visit [facility] Rad Onc [address] [place] [address] Deb Munguia MD Breast cancer of upper-outer quadrant of left female breast (Primary Dx) 02/27/2025 2:40 PM EDT Procedure visit [facility] Rad Onc [address] [place] [address] Deb Munguia MD Malignant neoplasm of upper-outer quadrant of left breast in female, estrogen receptor positive (Primary Dx) 02/27/2025 11:30 AM EDT Telemedicine - audio only [facility] at [address] [address] Deb Munguia MD Malignant neoplasm of female breast, unspecified estrogen receptor status, unspecified laterality, unspecified site of breast (Primary Dx) 02/27/[address] [facility] at [address] [address] Marimar Johnson, [facility] Forms & Paperwork 02/26/2025 2:30 PM EDT Office Visit [facility] Rad Onc [address] [place] [address] Deb Munguia MD Malignant neoplasm of upper-outer quadrant of left breast in female, estrogen receptor positive (Primary Dx) 02/13/2025 1:00 PM EDT Office Visit [facility] Rad Onc [address] [place] [address] Deb Munguia MD Malignant neoplasm of upper-outer quadrant of left breast in female, estrogen receptor positive (Primary Dx) 02/13/2025 Telephone [facility] Rad Onc [address] [place] [address] [facility] Documentation [facility] Rad Onc [address] [place] [address] Marianela Cote, ERNA 02/05/2025 Documentation [facility] Rad Onc [address] [place] [address] Deb Munguia MD 01/29/2025 10:00 AM EDT Office Visit [facility] Rad Onc [address] [place] [address] Deb Munguia MD Malignant neoplasm of upper-outer quadrant of left breast in female, estrogen receptor positive (Primary Dx); History of malignant neoplasm of right breast 01/28/2025 Ancillary Orders [facility] [address] [place] [address] Unknown, Unknown, 01/28/2025 Ancillary Orders [facility] [address] [place] [address] Unknown, Unknown, 01/28/2025 Ancillary Orders [facility] [address] [place] [address] Unknown, Unknown, 01/28/2025 Ancillary Orders [facility] [address] [place] [address] Unknown, Unknown, 01/28/2025 Ancillary Orders [facility] [address] [place] [address] UnknownAnnmarie MD 01/28/2025 Ancillary Orders [facility] Imaging [address] [place] [address] Unknown, UnknownMD from Last 3 Months Family History Medical [...] Sign Reading Time Taken Comments Blood Pressure 144/92 03/13/2025 11:19 AM EDT Pulse 83 03/13/2025 11:19 AM EDT Temperature 36.7 C (98 F) 03/13/2025 11:19 AM EDT Respiratory Rate 16 03/13/2025 11:19 AM EDT Oxygen Saturation 100% 03/13/2025 11:19 AM EDT Inhaled Oxygen Concentration - - Weight 73.2 kg (161 lb 6.4 oz) 03/13/2025 11:19 AM EDT Height - - Body Mass Index - - Plan of Treatment Upcoming Encounters Date Type Department Care Team (Late st Contact Info) Description 04/24/2025 8:00 AM EST Office Visit [facility] Rad Onc [address] [place] [address] Deb Munguia MD [address] [place] [address] [email or web address] Health Maintenance Due Date Last Done Comments LIPID PANEL 1959 DEPRESSION SCREENING 1971 SMOKING Hx and SMOKELESS TOBACCO SCREENING 1972 HEPATITIS C SCREENING 1977 PNEUMOCOCCAL VACCINES (50+ years) (1 of 2 - PCV) 1978 COLOGUARD 2004 COLONOSCOPY 2004 COLORECTAL CANCER SCREENING 2004 FIT TEST 2004 FOBT 2004 SIGMOIDOSCOPY 2004 VIRTUAL COLONOSCOPY 2004 OSTEOPOROSIS SCREENING INITIAL (ONE-TIME) 2024 INFLUENZA VACCINE (#1) 2024 , 02/17/2023, 02/23/2022, Additional history exists COVID-19 VACCINE ( season) 2025 02/01/2024, 02/17/2023, 03/14/2022, Additional history exists MAMMOGRAM 12/25/2026 12/25/2024, 11/14, 12/02/2024, Additional history exists Adult Td,Tdap Booster 03/03/2030 03/03/2020, 012 RSV VACCINE (1 - 1-dose 75+ series) 2034 ZOSTER VACCINES Completed 05/17/2019, 01/21/2019 HEPATITIS A VACCINES Aged Out No long [...] (NO INTERPRETATION) Routine 12/25/2024 12:00 AM EDT from Last 3 Months or Most Recently Relevant to Health Maintenance Results * MRI Breast Outside (No Interpretation) (12/25/2024 12:00 AM EDT) Narrative Record, Shira - 01/28/2025 4:47 PM EDT This study is for PACS storage only and not for interpretation. Procedure Note Record, - 01/28/2025 This study is for PACS storage only and not for interpretation. us Unknown Unknown MD EDSON OUTSIDE IMAGING W/OUT INT ERPRETATION Final Result from Last 3 Months or Most Recently Relevant to Health Maintenance Insurance [facility] O [facility]MR [facility] PPO [facility] PPO UMR O UMR O UMR O UMR CIG DENTAL Care Teams Farm Truck Driver Relationship Specialty Start Date End Date Pcp, Unknown PCP - General 01/27/25 Additional Source Comments The information contained in this document represents components of the legal health record. It is not the complete legal health record.[facility]
== END ==
LOC: HO.CARD 14:19
PROVIDERS: Visit Provider Internal Medicine
DX: C50.919 Malignant neoplasm of unspecified site of unspecified female breast (principal)
CPT/HCPCS: 93005

== ENCOUNTER → 2025-04-21 14:23 | Outpatient (BNV) | payer OTHER, SELFPAY | PROVIDERS: Visit Provider Internal Medicine Cardiovascular Disease | DX: Z13.6 Encounter for screening for cardiovascular disorders (principal) | CPT/HCPCS: 93010 ==